=== PATIENT | female | born 1965 | race Caucasian/White ===

== ENCOUNTER → 2018-03-19 14:39 | Outpatient (CLI) | payer OTHER, SELFPAY | PROVIDERS: Referring Provider Internal Medicine Critical Care Medicine; Visit Provider Internal Medicine Critical Care Medicine | DX: J44.9 Chronic obstructive pulmonary disease, unspecified (principal) | CPT/HCPCS: 87070; 87205 ==

== ENCOUNTER → 2018-04-24 13:14 | Outpatient (CLI) | payer OTHER, SELFPAY ==
--- NOTE | 2018-04-24 14:16 | ECHOD_ITS ---
Reason For Study: CAD Procedure This was a 2D Doppler, Color Flow transthoracic echocardiogram. The exam was of adequate technical quality. Exam performed in department. Left Ventricle Normal LV size. Left ventricular systolic function is normal. The estimated ejection fraction is 65 %. The global longitudinal strain = -20 % (normal). No evidence for diastolic dysfunction. No regional wall motion abnormalities noted. Right Ventricle Normal RV size. Normal systolic function. Atria Normal left atrium. Normal right atrium. No doppler evidence for ASD. Mitral Valve There is no mitral annular calcification. Normal mitral valve. Trivial mitral valve insufficiency. Tricuspid Valve Normal tricuspid valve. Mild tricuspid valve insufficiency. Right ventricular systolic pressure estimated to be 23 mmHg. Aortic Valve Trisinus/trileaflet aortic valve. Mild focal aortic valve thickening. Pulmonic Valve The pulmonic valve is not well visualized. Mild (1+) pulmonic valve insufficiency. Great Vessels Normal sized aortic root. Pericardium/Pleural No pericardial effusion. MMode/2D Measurements & Calculations LVIDd: 3.7 cm IVSd: 1.2 cm Ao root diam: 3.6 cm LVIDs: 2.2 cm LVPWd: 1.2 cm FS: 40.8 % LAV(MOD-bp): 32.1 ml LVAd ap4: 26.6 cm2 SV(MOD-sp4): 51.9 ml LAV(MOD-bp) Indexed: 18.2 ml/m2 EDV(MOD-sp4): 73.0 ml LAV(MOD-sp2): 34.1 ml EDV(sp4-el): 76.5 ml LAV(MOD-sp4): 29.8 ml LVAs ap4: 11.7 cm2 ESV(MOD-sp4): 21.1 ml ESV(sp4-el): 19.9 ml EF(MOD-sp4): 71.1 % EF(sp4-el): 74.0 % SV(sp4-el): 56.6 ml LA A4 area: 13.6 cm2 LA dimension(2D): 3.7 cm RA A4 area: 14.0 cm2 Time Measurements MV dec time: 0.37 sec Doppler Measurements & Calculations MV E max drew: 71.5 cm/sec Lat Peak E' Drew: 12.9 cm/sec Med Peak E' Drew: 7.4 cm/sec MV A max drew: 71.2 cm/sec E/E' lat: 5.5 E/E' med: 9.6 MV E/A: 1.0 Ao V2 max: 147.8 cm/sec LV V1 max: 113.9 cm/sec PA V2 max: 111.6 cm/sec Ao max P.7 mmHg LV V1 max P.2 mmHg TR max drew: 221.5 cm/sec TR max P.6 mmHg Interpretation Summary Left ventricular systolic function is normal. The estimated ejection fraction is 65 %. The global longitudinal strain = -20 % (normal). Trivial mitral valve insufficiency. Mild tricuspid valve insufficiency. Mild focal aortic valve thickening. Mild (1+) pulmonic valve insufficiency. Right ventricular systolic pressure estimated to be 23 mmHg. No evidence for diastolic dysfunction. Ordering Physician: Jose M Mcgregor Referring Physician: Sarah Katz Performed By: Sunshine Turcios, RDCS, RVT
--- NOTE | 2018-04-25 15:01 | PFT ---
INTRODUCTION: The patient is a 53-year-old female that presents for pulmonary function testing secondary to a diagnosis of COPD. Respiratory therapy reports good patient effort. Bronchodilators were used during testing. INTERPRETATION: Forced expiration spirometry demonstrates no evidence of a large airways obstructive ventilatory defect. There was no significant response to aerosolized bronchodilators. Spirograms are of good quality and plateau normally. Body plethysmography was performed and reveals lung volumes to be within normal limits. Diffusing capacity by single breath CO is mildly reduced at 67% of predicted. IMPRESSION: These pulmonary function studies demonstrate the presence of an isolated mild reduction in diffusing capacity. There is no evidence of COPD.
== END ==
PROVIDERS: Referring Provider Nurse Practitioner Acute Care; Visit Provider Nurse Practitioner Acute Care
DX: I25.10 Atherosclerotic heart disease of native coronary artery without angina pectoris (principal); J44.9 Chronic obstructive pulmonary disease, unspecified; E78.5 Hyperlipidemia, unspecified
CPT/HCPCS: 93306; 94060; 94726; 94729

== ENCOUNTER → 2018-05-01 14:12 | Outpatient (CLI) | payer OTHER, SELFPAY ==
[2018-05-01 13:14] VITALS: BMI 27.3
[2018-05-01 15:16] LABS: Absolute Lymphocyte Count 2.05 X10^3/ul (0.83-4.51); Absolute Neutrophil Count 5.5 X10^3/uL (2.0-7.7); Basophil# 0.02 X10^3/uL; Basophil% 0.2 % (0-1); Eosinophil# 0.25 X10^3/uL; Hematocrit 38.6 % (37-47); Hemoglobin 12.7 g/dl (12.0-15.0); Lymphocyte # 2.05 X10^3/ul (4.0); Lymphocyte % 24.3 % (19-41); Mean Corp Hgb Conc 32.9 g/gl (32-36); Mean Corpuscular Hgb 31.4 pg (27.0-32.0); Mean Corpuscular Volume 95.5 fL (81-99); Mean Platelet Vol. 9.6 fl (6.2-12.0); Monocyte# 0.64 X10^3/uL; Monocyte% 7.6 % (0-10); Neutrophil # 5.47 X10^3/uL (2.7-7.7); Neutrophil % 64.7 % (47-70); Platelet Count 275 K/mm3 (150-450); RBC Distribution Width CV 12.5 % (11.6-14.6); RBC Distribution Width SD 43.6 fl (35.1-43.9); Red Blood Count 4.04 M/mm3 (4.2-5.4); White Blood Count 8.5 K/mm3 (4.4-11.0)
[2018-05-01 15:41] LABS: POSITIVE COUNT NO; POSITIVE DIFFERENTIAL NO; POSITIVE MORPHOLOGY NO
[2018-05-03 20:07] LABS: Alternaria alternata <0.10 kU/L (Class 0); Bermuda Grass <0.10 kU/L (Class 0); Bluegrass, Kentucky <0.10 kU/L (Class 0); Cat Hair/Dander, Standard <0.10 kU/L (Class 0); D farinae Mite <0.10 kU/L (Class 0); D pteronyssinus <0.10 kU/L (Class 0); Dog Epithelia <0.10 kU/L (Class 0); Elm, American White <0.10 kU/L (Class 0); Oak, White <0.10 kU/L (Class 0); Plantain, English <0.10 kU/L (Class 0); Ragweed, Short/Common <0.10 kU/L (Class 0)
[2018-05-04 12:00] LABS: Mouse Urine <0.10 kU/L (Class 0)
[2018-05-04 20:07] LABS: Aspirgillus flavus Negative (Neg:<1:1); Aspirgillus fumigatus Negative (Neg:<1:1); Aspirgillus niger Negative (Neg:<1:1)
[2018-05-05 09:22] LABS: Immunoglobulin E 2 IU/mL (0-100)
== END ==
PROVIDERS: Referring Provider Nurse Practitioner Acute Care; Visit Provider Nurse Practitioner Acute Care
DX: J45.909 Unspecified asthma, uncomplicated (principal); R05 Cough
CPT/HCPCS: 36415; 82785; 85025; 86003; 86606; 87070; 87205

== ENCOUNTER → 2018-10-16 07:02 | Outpatient (CLI) | payer MEDICAID, SELFPAY ==
[2018-09-26 15:23] VITALS: BMI 27.3
--- NOTE | 2018-10-16 16:51 | STRESSREP ---
Stress Test Report Date: 10-16-18 Procedure: Exercise tolerance test/imaging study Indications: Chest pain; CAD; CABG Consent: Per the patient Procedure: The patient exercised on a Juan protocol for 7 minutes and 45 seconds completing stage II and 1 minute and 45 seconds of stage III achieving a peak heart rate of 146 bpm (86 % predicted maximal heart rate) with a peak blood pressure 136/70 mmHg and a peak MET capacity of 9 METs. The baseline ECG demonstrated normal sinus rhythm; right bundle branch block pattern. The peak exercise ECG demonstrated continued right bundle branch block pattern. There were no cardiac dysrhythmias pretest, during exercise, or recovery. The functional capacity was considered good. There was no complaint of chest discomfort during exercise or recovery. The examination was discontinued secondary to dyspnea. Impression: 1. Technically adequate (percent predicted maximal heart rate greater than 85%) exercise tolerance test 2. Peak exercise ECG with continued right bundle branch block pattern with no obvious ECG changes compared with baseline 3. There were no cardiac dysrhythmias pretest, during exercise, or recovery 4. Nuclear images pending Myocardial perfusion imaging study: Technique: The patient was injected with 11.7 mCi of technetium 99m Cardiolite and subsequently rest SPECT Cardiolite nuclear imaging was obtained in the horizontal long, vertical long, and short axis views. The patient exercised on a Juan protocol for 7 minutes and 45 seconds completing stage II and 1 minute and 45 seconds of stage III achieving a peak heart rate of 146 bpm (86 % predicted maximal heart rate) with a peak blood pressure 136/70 mmHg and a peak MET capacity of 9 METs. The patient was injected with 33.4 mCi of technetium 99m Cardiolite and subsequently stress SPECT Cardiolite nuclear imaging was obtained in the horizontal long, vertical long, and short axis views. A gated Cardiolite study at peak stress was obtained. Interpretation: Rest and stress SPECT Cardiolite nuclear imaging status post realignment, normalization, and attenuation correction, demonstrates the appearance of relative uniform tracer uptake and myocardial perfusion appearing within normal limits. There is end systolic thickening and brightening. The gated Cardiolite study demonstrates myocardial thickening and inward wall motion. The reported LVEF is 69 %. Impression: 1. Rest and stress SPECT Cardiolite nuclear imaging demonstrate relative uniform tracer uptake and myocardial perfusion appearing within normal limits. 2. The gated Cardiolite study reports an LVEF of 69 %. This note was generated with Dragon dictation software. It may contain incorrect words, spelling, and punctuation that were not noted in checking the note before signing.
== END ==
PROVIDERS: Referring Provider Internal Medicine Cardiovascular Disease; Visit Provider Internal Medicine Cardiovascular Disease
DX: R07.9 Chest pain, unspecified (principal); I25.10 Atherosclerotic heart disease of native coronary artery without angina pectoris; Z95.1 Presence of aortocoronary bypass graft
CPT/HCPCS: 78452; 93017; A9500; A4216

== ENCOUNTER 2018-10-29 14:27 | Emergency (ER) | payer MEDICAID, SELFPAY ==
[2018-09-26 15:23] VITALS: BMI 27.3
[2018-10-29 14:29] VITALS: BP 127/89; PULSE 85; RESP 20; TEMP 36.4; O2SAT 97; BMI 26.6
--- NOTE | 2018-10-29 14:55 | EKG12_ITS ---
Test Reason : CP Blood Pressure : / mmHG Vent. Rate : 074 BPM Atrial Rate : 074 BPM P-R Int : 164 ms QRS Dur : 140 ms QT Int : 416 ms P-R-T Axes : 061 -32 061 degrees QTc Int : 461 ms Normal sinus rhythm Left axis deviation Right bundle branch block Inferior infarct , age undetermined , cannot be excluded Abnormal ECG Confirmed by CHYNA ENCISO, LEILA ([id number]), editor continuity and script GET FERRER ([id number]) on 10/31/2018 9:16:37 AM Referred By: HARPER Confirmed By:LEILA CLEMENTE MD
--- NOTE | 2018-10-29 14:55 | RAD_ITS ---
STUDY: X-RAY CHEST REASON FOR EXAM: Female, 53 years old. Cough, CP, SOB x 10 days TECHNIQUE: Frontal and lateral views of the chest. COMPARISON: None. FINDINGS: The lungs are clear and expanded. There is no demonstrated pleural abnormality. Sternal cerclage wires and vascular clips are present from a prior sternotomy and coronary artery bypass graft procedure (CABG). Normal heart size. Normal mediastinum and mario. Normal visualized pulmonary arteries. Normal visualized aortic arch and descending thoracic aorta. Normal visualized thoracic spine. Normal visualized ribs, clavicles, and shoulders. There is no demonstrated abnormality of the visualized soft tissue structures of the upper abdomen. RAD/Chest PA and Lateral IMPRESSION: No acute chest disease. Electronically Signed: Rogelio Kendrick MD at 16:20 EDT , Service support ,
[2018-10-29 15:12] VITALS: PULSE 89; RESP 22
[2018-10-29] MEDS: Ipratropium/Albuterol Sulfate 3 ML AMPUL.NEB INHALATION (15:12)
[2018-10-29] MEDS: Acetylcysteine 800 MG/4 ML VIAL.NEB. INHALATION (15:12)
[2018-10-29 15:24] VITALS: BP 120/67; PULSE 82; PULSE 85; RESP 12; RESP 15; TEMP 36.4; O2SAT 97
[2018-10-29 15:25] VITALS: O2SAT 98
[2018-10-29] MEDS: 0.9% Normal Saline 1,000 ML 999 ML IV (15:32)
[2018-10-29] MEDS: Ondansetron 4 MG/2 ML Vial IV (15:33)
[2018-10-29] MEDS: DiphenhydrAMINE 50 MG/ML Syringe 25 MG IV (15:33)
[2018-10-29] MEDS: MethylPREDNISolone 125 MG/2 ML Vial IV (15:33)
[2018-10-29] MEDS: Benzonatate 100 MG Capsule 200 MG PO (15:33)
[2018-10-29] MEDS: Morphine 4 MG/ML Syringe IV (15:33)
--- NOTE | 2018-10-29 15:33 | ED.DCSUM_ITS ---
- ER Visit Summary Date of Service: 10/29/18 Chief Complaint: Cough History of Present Illness: The patient is a [address] Flores, Dr. Ceja, and Dr. Mcgregor. She reports that she has a cough began 4 weeks ago. Is productive of yellow sputum with streaks of blood. She is currently on day 7 out of 10 of Zithromax. She is on her last aid of prednisone which she is taken for 6 days. She reports that she is getting worse rather than better. She states that she has severe shortness of breath at worst and moderate currently. Is minimally relieved with her albuterol. Patient denies fever. She has had chills. She reports that she has a sore throat and diffuse myalgias from coughing. She reports that she has chest pain in the wall of my chest that increases with coughing. This is been present all day today. It is 6 out of 10 in severity. She reports that she has been nauseated had multiple episodes of posttussive emesis productive of phlegm without blood. She had 3 episodes of diarrhea today. No blood in her stools or black tarry stools. She reports that she has a headache that is 10 out of 10 severity that is much worse when she coughs. She has had similar headaches previously. Physical Examination: Vitals: Stable. Afebrile. General: Well-nourished and well-developed. Head: Normocephalic atraumatic. HEENT: Pharyngeal erythema. No tonsillar exudate or enlargement. No cervical lymphadenopathy. Neck: Supple, no lymphadenopathy. No JVD. Nontender. Cardiovascular: Regular rate and rhythm. No murmurs. Respiratory: No respiratory distress. Moderate inspiratory and expiratory wheezes bilaterally with mildly decreased air movement. Abdominal: Soft, nontender, nondistended, normal bowel sounds. No guarding, rebound, or peritoneal signs. Back: Nontender. Extremities: Nontender, no edema. Skin: Normal color, no rash. Neurologic: Alert and oriented ?3. Cranial nerves II through XII are intact. Normal strength and sensation. Psych: Normal affect. Test Results: EKG is sinus at 74 with a right bundle branch block. This is unchanged from last month. Chest x-ray shows chronic changes. CBC is remarkable for a white count of 16.3. However, she is just finishing steroids. Chem-7 shows a potassium 3.2 and chloride of 34. Troponin is negative. Emergency Department Course and Treatment: Patient was given albuterol and Atrovent aerosols. She is given a dose of Solu-Medrol, Benadryl, morphine, and Zofran IV. She is resting more comfortably. Pulse ox with ambulation is 92%. Treatment Plan: Patient will be discharged on a prednisone taper, doxycycline, Tessalon Perles, and given a prescription for Atrovent for her nebulizer. Instructed to follow-up with Dr. Flores in 3 to 5 days for another exam. Return to the emergency department for any worsening symptoms. Disposition: To home in improved and stable condition. Impression: 1. COPD exacerbation. This note was generated with [employer] dictation software. It may contain incorrect words, spelling, and punctuation that were not noted in review of the chart prior to signing ED Disposition - Plan for ED Patient: Instructions: ED COPD Flare Prescriptions: Oxycodone HCl/Acetaminophen [Percocet 5/325] 1 tab PO Q6H PRN PRN 3 Days #12 tab PRN Reason: Pain Benzonatate [Tessalon Perle] 200 mg PO TID PRN PRN #20 capsule PRN Reason: Cough Prednisone 10 mg PO DAILY #63 tablet Doxycycline 100 mg PO BID #20 capsule Ipratropium [Atrovent] 0.5 mg INHALATION TID #1 box Referrals: Juan Flores MD [STAFF PHYSICIAN] - 3-5 Days
[2018-10-29 15:50] LABS: Absolute Lymphocyte Count 4.44 X10^3/ul (0.83-4.51); Absolute Neutrophil Count 10.1 X10^3/uL (2.0-7.7); Basophil# 0.03 X10^3/uL; Basophil% 0.2 % (0-1); Differential Indicated SCAN CRITERIA MET; Eosinophil# 0.16 X10^3/uL; Hematocrit 37.6 % (37-47); Hemoglobin 12.3 g/dl (12.0-15.0); Lymphocyte # 4.44 X10^3/ul (4.0); Lymphocyte % 27.3 % (19-41); Mean Corp Hgb Conc 32.7 g/gl (32-36); Mean Corpuscular Hgb 31.8 pg (27.0-32.0); Mean Corpuscular Volume 97.2 fL (81-99); Mean Platelet Vol. 9.4 fl (6.2-12.0); Monocyte# 1.46 X10^3/uL; Neutrophil # 10.05 X10^3/uL (2.7-7.7); Neutrophil % 61.6 % (47-70); POSITIVE COUNT NO; POSITIVE DIFFERENTIAL NO; POSITIVE MORPHOLOGY YES; Platelet Count 338 K/mm3 (150-450); RBC Distribution Width CV 12.4 % (11.6-14.6); Red Blood Count 3.87 M/mm3 (4.2-5.4); White Blood Count 16.3 K/mm3 (4.4-11.0)
[2018-10-29 16:07] LABS: BUN 8 mg/dL (7-18); Creatinine, Serum 0.55 mg/dL (0.55-1.02); EST Glomerular Filtration Rate 125 mL/min (>60); Estimated Creatinine Clearance 108.89 ml/min; Glucose 84 mg/dL (74-106)
[2018-10-29 16:08] LABS: Anion Gap 5 (5-15); BUN/Creat Ratio 14.7 RATIO (10-20); Calcium,Total 8.7 mg/dL (8.5-10.1); Chloride 101 mmol/L (98-107); Est Glom Filt Rate - Afr Amer 151 mL/min (>60); Potassium 3.2 mmol/L (3.5-5.1); Sodium Level 140 mmol/L (136-145)
[2018-10-29 16:13] LABS: Differential Comment SCANNED
[2018-10-29 16:56] VITALS: BP 170/76; PULSE 89; RESP 18; TEMP 36.6; O2SAT 88; O2SAT 92
[2018-10-29] MEDS: Doxycycline 100 MG CAPSULE PO (16:57)
[2018-10-29 17:19] VITALS: BP 168/81; PULSE 84; RESP 18; TEMP 36.6; O2SAT 99
== END 2018-10-29 17:23 | disposition home or self-care (01) ==
LOC: ED 15:44
PROVIDERS: Emergency Provider Emergency Medicine
DX: J44.1 Chronic obstructive pulmonary disease with (acute) exacerbation (principal); R19.7 Diarrhea, unspecified; R11.2 Nausea with vomiting, unspecified; J02.9 Acute pharyngitis, unspecified; M79.10 Myalgia, unspecified site; R51 Headache; I25.10 Atherosclerotic heart disease of native coronary artery without angina pectoris; I10 Essential (primary) hypertension; I45.10 Unspecified right bundle-branch block; Z72.0 Tobacco use; Z79.02 Long term (current) use of antithrombotics/antiplatelets; Z79.82 Long term (current) use of aspirin; Z79.899 Other long term (current) drug therapy; Z95.1 Presence of aortocoronary bypass graft
CPT/HCPCS: 71046; 80048; 84484; 85025; 93005; 94640; 96361; 96374; 96375; 99285; J2405

== ENCOUNTER 2018-11-19 19:34 | Emergency (ER) | payer MEDICAID, SELFPAY ==
[2018-11-15 14:18] VITALS: BMI 26.6
[2018-11-19 19:35] VITALS: BP 124/82; PULSE 83; RESP 16; TEMP 36.7; O2SAT 96; BMI 26.6
--- NOTE | 2018-11-19 20:06 | CT_ITS ---
STUDY: CT CHEST WITHOUT CONTRAST REASON FOR EXAM: Female, 53 years old. Cough RADIATION DOSAGE (If Supplied By Facility): CTDIvol = ( 11.81 ) mGy, DLP = ( 445.52 ) mGycm TECHNIQUE: Transaxial imaging was performed without the administration of intravenous contrast material. Individualized dose optimization techniques were used for this CT. COMPARISON: None. FINDINGS: There are minimal emphysematous changes of the lung apices. There is no demonstrated pleural abnormality. The heart size is normal. There is no pericardial effusion. No pathologically enlarged mediastinal nodes are evident. Hilar areas are difficult to assess on this noncontrast study. There is no obvious hilar mass or adenopathy. Normal unenhanced pulmonary arteries. There are calcified plaques of the thoracic aorta. There is no evidence of thoracic aortic aneurysm. Status post sternotomy changes are evident. There is a nonobstructing 2 mm calculus of the left kidney. CT/Chest without Contrast IMPRESSION: Minimal emphysematous changes of the lung apices. There is no evidence of infiltrate or atelectasis. Status post sternotomy. Nonobstructing 2 mm calculus of the left kidney. Electronically Signed: Afshin Sánchez MD at 21:04 EDT , Service support ,
[2018-11-19 20:14] VITALS: PULSE 75; RESP 16
[2018-11-19] MEDS: Albuterol 2.5 MG/3 ML VIAL.NEB. INHALATION (20:14)
[2018-11-19] MEDS: Ipratropium/Albuterol Sulfate 3 ML AMPUL.NEB INHALATION (20:14)
[2018-11-19] MEDS: Ketorolac 15 MG/ML Vial IV (20:31)
[2018-11-19] MEDS: LORazepam 0.5 MG Tablet PO (20:31)
[2018-11-19 20:33] VITALS: O2SAT 95
[2018-11-19 20:40] LABS: Absolute Neutrophil Count 6.9 X10^3/uL (2.0-7.7); Basophil# 0.02 X10^3/uL; Basophil% 0.2 % (0-1); Eosinophil# 0.07 X10^3/uL; Eosinophils% 0.8 % (0-5); Hematocrit 37.5 % (37-47); Hemoglobin 12.3 g/dl (12.0-15.0); Lymphocyte % 18.6 % (19-41); Mean Corp Hgb Conc 32.8 g/gl (32-36); Mean Corpuscular Hgb 31.8 pg (27.0-32.0); Mean Corpuscular Volume 96.9 fL (81-99); Mean Platelet Vol. 9.1 fl (6.2-12.0); Monocyte# 0.46 X10^3/uL; Neutrophil # 6.88 X10^3/uL (2.7-7.7); Neutrophil % 75.1 % (47-70); Platelet Count 282 K/mm3 (150-450); RBC Distribution Width CV 13.4 % (11.6-14.6); RBC Distribution Width SD 47.6 fl (35.1-43.9); Red Blood Count 3.87 M/mm3 (4.2-5.4); White Blood Count 9.2 K/mm3 (4.4-11.0)
[2018-11-19 20:46] LABS: POSITIVE COUNT NO; POSITIVE DIFFERENTIAL NO; POSITIVE MORPHOLOGY NO
[2018-11-19 20:53] LABS: Anion Gap 7 (5-15); BUN 8 mg/dL (7-18); Chloride 103 mmol/L (98-107); Creatinine, Serum 0.54 mg/dL (0.55-1.02); EST Glomerular Filtration Rate 128 mL/min (>60); Est Glom Filt Rate - Afr Amer 154 mL/min (>60); Estimated Creatinine Clearance 110.91 ml/min; Glucose 112 mg/dL (74-106); Sodium Level 140 mmol/L (136-145)
--- NOTE | 2018-11-19 22:17 | ED.DCSUM_ITS ---
History of Present Illness Chief Complaint: Cough Informant: Patient Narrative: Patient presenting for evaluation secondary to a respiratory infection. Patient reports that over the course the last 6 weeks she has been dealing with productive cough. Patient has been on a course of azithromycin, calityromycin, doxycycline, as well as a course of prednisone. She reports that she has not been having any improvement. 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 Patient states that she has been having generalized malaise associated with this throughout this time. Review of systems otherwise negative. Past Medical History - Allergies and Home Meds Allergies/Adverse Reactions: Allergies acetaminophen [From Vicodin] Allergy (Unknown, Verified 11/15/18 14:09) Unknown erythromycin base Allergy (Unknown, Verified 11/15/18 14:09) Unknown hydrocodone [From Vicodin] Allergy (Unknown, Verified 11/19/18 21:08) Unknown nausea hydromorphone [From Dilaudid] Adverse Reaction (Verified 11/19/18 21:08) Itching morphine Adverse Reaction (Verified 11/19/18 21:08) Itching oxycodone [From Percocet] Adverse Reaction (Verified 11/19/18 21:08) Itching Primary Care Physician: Marco Ugarte DO [STAFF PHYSICIAN] - 1-2 Weeks Smoking Status: Current every day smoker Review of Systems All systems negative except as indicated General: Reports: Malaise Respiratory: Reports: Dyspnea, Cough, Sputum Physical Exam Vital Signs/Narrative: Vital Signs Temp Pulse Resp BP Pulse Ox 11/19/18 20:14 75 16 11/19/18 19:35 98.1 F 83 16 124/82 H 96 Inital Vital Signs reviewed: Yes General: Well nourished, Well developed, No Acute Distress Head: Normocephalic, Atraumatic Eyes: Perrl, EOMI ENT: Moist mucous membranes, No rhinorrhea Neck: Supple, Nontender Cardiovascular: Regular rate, Regular rhythm, No murmurs Respiratory: No distress, Wheezing Abdomen: Soft, Nontender, Nondistended, Normal bowel sounds Back: Nontender, Normal Inspection Extremities: Nontender, No edema Skin: Normal color, No rash Neurological: Alert, Oriented x3, Cranial nerves II-XII grossly intact, Normal Strength, Normal Sensation Psychological: Normal affect, Normal Mood Diagnostic/Tx/Re-eval - Medical Decision Making Patient presented secondary to a persistent respiratory infection. Patient was reporting that pulmonary was requesting that she receive a work-up, CT, and admission. CT of the chest was obtained which shows no focal infiltrates. CBC and chemistry were found to be unremarkable. Patient was given breathing treatments in the emergency department. I had a discussion with the patient's pickling grader Dr. Ugarte on the telephone, and he states that he did not inform the patient that she requires admission. He recommended starting patient on a course of Augmentin. Patient was given a dose that in the emergency department and will be discharged with a course of the same. Disposition: Home ED Disposition - Plan for ED Patient: Disposition: Home or Assisted Living Diagnosis: Bronchitis Instructions: ED Bronchitis Asthmatic Prescriptions: Amox/Clavulanate Tablet [Augmentin Tablet] 875 mg PO Q12H #28 tab Referrals: Marco Ugarte DO [STAFF PHYSICIAN] - 1-2 Weeks
[2018-11-19] MEDS: Acetaminophen 500 MG Tablet 1000 MG PO (22:29)
[2018-11-19] MEDS: Amox/Clavulanate 875 MG Tablet PO (22:29)
[2018-11-19] MEDS: traMADol 50 MG Tablet PO (22:29)
[2018-11-19 22:34] VITALS: BP 118/95; PULSE 87; RESP 16; TEMP 36.8; O2SAT 97
--- NOTE | 2018-11-20 22:07 | ED.RN ---
PT CALLED IN AND STATES SHE IS FRUSTRATED AND UPSET WITH HER MOST RECENT VISIT TO THE EMERGENCY ROOM. SHE STATES SHE WANTS ALL ALLERGIES TAKEN OFF HER CHART BECAUSE SHE JUST REALIZED ON HER DISCHARGE PAPERWORK WHAT WAS LISTED. SHE STATES SHE WILL BE IN CHARGE OF ASKING FOR BENADRYL, THAT HER ITCHING WITH MEDICATION IS NOT AN ALLERGY AND PREVENTING PROVIDERS FROM GIVING HER PAIN MEDICATION. PATIENT WAS NOTIFIED THAT ALLERGIES WERE PUT IN APPROPRIATELY, THAT THEY WERE LISTED ADVERSE REACTIONS WITH THE REACTION BEING 'ITCHING'. SHE INSISTED THAT THEY BE REMOVED COMPLETELY FROM HER CHART WHICH WAS COMPLETED BY THIS RN. PT ENCOURAGED TO FOLLOW UP WITH DR. BONNER PT ALSO STATES SHE IS STOPPING HER ORAL ABX DUE TO VOMITING.
== END 2018-11-19 23:09 | disposition home or self-care (01) ==
PROVIDERS: Emergency Provider Emergency Medicine; PCP Family Medicine
DX: J40 Bronchitis, not specified as acute or chronic (principal); F17.200 Nicotine dependence, unspecified, uncomplicated; Z88.5 Allergy status to narcotic agent; Z88.1 Allergy status to other antibiotic agents
CPT/HCPCS: 71250; 80048; 85025; 94640; 96374; 99284; A4216

== ENCOUNTER → 2018-12-14 15:14 | Outpatient (CLI) | payer MEDICAID, SELFPAY ==
[2018-11-19 19:35] VITALS: BMI 26.6
[2018-12-14] MEDS: cefTRIAXone 2 GM Vial IM (15:41)
[2018-12-14 15:45] VITALS: BP 120/85; PULSE 85; RESP 16; TEMP 36.6; O2SAT 100; BMI 25.7
== END ==
PROVIDERS: PCP Family Medicine; Referring Provider Internal Medicine Infectious Disease; Visit Provider Internal Medicine Infectious Disease
DX: J44.0 Chronic obstructive pulmonary disease with (acute) lower respiratory infection (principal); J18.9 Pneumonia, unspecified organism; J44.1 Chronic obstructive pulmonary disease with (acute) exacerbation
CPT/HCPCS: 87070; 87106; 87186; 87205; 96372; J0696

== ENCOUNTER → 2018-12-14 15:47 | Outpatient (CLI) | payer MEDICAID, SELFPAY ==
[2018-11-19 19:35] VITALS: BMI 26.6
== END ==
PROVIDERS: Family Provider Family Medicine; PCP Family Medicine; Referring Provider Internal Medicine Infectious Disease; Visit Provider Internal Medicine Infectious Disease
DX: J44.1 Chronic obstructive pulmonary disease with (acute) exacerbation (principal)
CPT/HCPCS: 87070; 87106; 87186; 87205

== ENCOUNTER 2018-12-15 16:32 | Outpatient (CLI) | payer MEDICAID, SELFPAY ==
[2018-12-14 15:45] VITALS: BMI 25.7
[2018-12-15 16:42] VITALS: BP 138/83; PULSE 84; RESP 18; TEMP 36.2; O2SAT 98; BMI 25.7
[2018-12-15] MEDS: cefTRIAXone 2 GM Vial IM (16:50)
== END 2018-12-15 16:51 | disposition home or self-care (01) ==
LOC: MEDOUTP 16:43 → ED 16:48
PROVIDERS: PCP Family Medicine; Visit Provider Internal Medicine Infectious Disease
DX: J18.9 Pneumonia, unspecified organism (principal)
CPT/HCPCS: 96372; J0696

== ENCOUNTER → 2018-12-16 16:00 | Outpatient (CLI) | payer MEDICAID, SELFPAY ==
[2018-12-14 15:45] VITALS: BMI 25.7
[2018-12-15 16:42] VITALS: BMI 25.7
[2018-12-16 16:58] VITALS: BP 133/98; PULSE 86; RESP 18; TEMP 36.9; O2SAT 98; BMI 25.7
[2018-12-16] MEDS: cefTRIAXone 2 GM Vial IM (17:05)
== END ==
PROVIDERS: PCP Family Medicine; Visit Provider Internal Medicine Infectious Disease
DX: J18.9 Pneumonia, unspecified organism (principal)
CPT/HCPCS: J0696

== ENCOUNTER → 2018-12-18 15:37 | Outpatient (CLI) | payer MEDICAID, SELFPAY ==
[2018-12-14 15:45] VITALS: BMI 25.7
[2018-12-16 16:58] VITALS: BMI 25.7
[2018-12-18] MEDS: cefTRIAXone 2 GM Vial 1 GM IM (15:52)
[2018-12-18 15:56] VITALS: BP 100/72; PULSE 83; RESP 16; TEMP 37.3; O2SAT 98; BMI 25.0
== END ==
PROVIDERS: PCP Family Medicine; Referring Provider Internal Medicine Infectious Disease; Visit Provider Internal Medicine Infectious Disease
DX: J44.0 Chronic obstructive pulmonary disease with (acute) lower respiratory infection (principal); J18.9 Pneumonia, unspecified organism; J44.1 Chronic obstructive pulmonary disease with (acute) exacerbation
CPT/HCPCS: 96372; J0696

== ENCOUNTER → 2018-12-19 11:55 | Outpatient (CLI) | payer MEDICAID, SELFPAY ==
[2018-12-14 15:45] VITALS: BMI 25.7
[2018-12-18 15:56] VITALS: BMI 25.0
[2018-12-19 12:02] VITALS: BP 110/75; PULSE 75; RESP 18; TEMP 36.4; O2SAT 97; BMI 25.0
[2018-12-19] MEDS: Ceftriaxone 1 GM Vial IM (12:33)
== END ==
PROVIDERS: PCP Family Medicine; Referring Provider Internal Medicine Infectious Disease; Visit Provider Internal Medicine Infectious Disease
DX: J18.9 Pneumonia, unspecified organism (principal)
CPT/HCPCS: 96372

== ENCOUNTER → 2018-12-20 15:43 | Outpatient (CLI) | payer MEDICAID, SELFPAY ==
[2018-12-14 15:45] VITALS: BMI 25.7
[2018-12-19 12:02] VITALS: BMI 25.0
[2018-12-20 16:15] VITALS: BP 112/74; PULSE 84; RESP 16; TEMP 36.3; O2SAT 97; BMI 25.7
[2018-12-20] MEDS: Ceftriaxone 1 GM Vial IM (16:21)
== END ==
PROVIDERS: PCP Family Medicine; Referring Provider Internal Medicine Infectious Disease; Visit Provider Internal Medicine Infectious Disease
DX: J18.9 Pneumonia, unspecified organism (principal)
CPT/HCPCS: 96372

== ENCOUNTER 2019-02-10 21:54 | Emergency (ER) | payer MEDICAID, SELFPAY ==
[2018-12-20 16:15] VITALS: BMI 25.7
[2019-02-10 21:54] VITALS: BP 137/102; PULSE 88; RESP 18; TEMP 36.8; O2SAT 98; BMI 26.4
--- NOTE | 2019-02-10 22:18 | CT_ITS ---
STUDY: CT ABDOMEN AND PELVIS WITH CONTRAST REASON FOR EXAM: Female, 53 years old. Stomach and flank pain. RADIATION DOSAGE (If Supplied By Facility): CTDIvol = ( 14.17 ) mGy, DLP = ( 743.82 ) mGycm TECHNIQUE: Transaxial images were obtained from the dome of the diaphragm to the symphysis pubis with oral contrast. 100 IV/Oral Isovue 300 was administered. Sagittal and coronal images were reconstructed. Individualized dose optimization techniques were used for this CT. COMPARISON: CT chest November 19, 2018. FINDINGS: No focal infiltrates or effusions. The visualized portions of the heart are within normal limits. Sternal wires are present. Normal liver. There is borderline gallbladder wall thickening. Normal spleen. Normal pancreas. Normal bilateral adrenal glands. Normal right kidney. 2.6 cm cyst inferior pole left kidney. 2 mm nonobstructing mid pole left renal calculus. 5 mm left renal vascular calcification. Normal visualized stomach. Mildly prominent contrast-filled loops of small bowel left midabdomen with appearance probably related to peristalsis and not obstruction. Normal colon. There is non-visualization of the appendix. There is diffuse atherosclerotic calcification of the abdominal aorta, without a demonstrated aneurysm. Normal inferior vena cava. Normal retroperitoneum. No intra-abdominal free air. Normal urinary bladder. Uterus grossly normal. No adnexal mass is seen. There is a small right-sided inguinal hernia containing adipose tissue. L5-S1 mild disc space narrowing. CT/Abdomen/Pelvis WITH Contrast IMPRESSION: Borderline gallbladder wall thickening. If the patient has symptoms referable to the right upper quadrant correlate with abdominal ultrasound. Small nonobstructing left renal calculus. Left renal cyst. Small right inguinal hernia containing fat. Electronically Signed: Brady Harper MD at 0:39 EDT , Service support ,
--- NOTE | 2019-02-10 22:21 | ED.DCSUM_ITS ---
- ER Visit Summary Date of Service: 02/10/19 Chief Complaint: Abdominal pain History of Present Illness: The patient is a 53 F who presents with abdominal pain that is been getting worse over the past 3 days. Patient states the pain is over the epigastric area and radiates into her back. Patient states her pain is worse with breathing. Patient states nothing makes it better. Patient admits to some nausea vomiting. Patient denies any hematemesis or coffee-ground emesis. Patient denies any diarrhea, melena, or hematochezia. Patient denies any dysuria or hematuria. Patient does admit to headache. Patient admits to subjective chills. Physical Examination: Vital signs are stable except for slightly elevated blood pressure of 132/102. Patient is afebrile. Patient is in no acute distress. Oral mucosa is pink and moist. Neck is supple. Trachea is midline. There is no JVD noted. Heart was regular rate and rhythm. Lungs are clear and equal bilaterally. Abdomen is soft. Bowel sounds are normal. There is epigastric tenderness. There is no rebound or guarding noted. Cranial nerves II through XII are intact. There are no focal motor or sensory deficits noted. Test Results: CBC, comprehensive metabolic profile, and urinalysis were obtained and were all normal. ET scan of the abdomen and pelvis was obtained. There is borderline gallbladder wall thickening. There is a small right inguinal hernia containing fat. There are no other acute findings. Emergency Department Course and Treatment: Patient was given a dose of morphine and Zofran here. Patient states she developed itching after the morphine. Patient was given a dose of Benadryl. Patient was advised of her lab and CT findings. Patient was instructed to follow-up with her primary care physician in 3 to 5 days. Patient was given a prescription for a short course of Slater for pain. Patient was instructed to return if worse in any way. Patient understood and was agreeable with the plan. All questions were answered. Disposition: Discharge home Impression: Abdominal pain This note was generated with [employer] dictation software. It may contain incorrect words, spelling, and punctuation that were not noted in review of the chart prior to signing ED Disposition - Plan for ED Patient: Disposition: Home or Assisted Living Diagnosis: Abdominal pain, acute, epigastric Instructions: ABDOMINAL PAIN, Unknown Cause, (Female) Prescriptions: Hydrocodone Bitart/Apap 5-325 [Slater 5MG-325MG] 1 tab PO Q6H PRN PRN 3 Days #10 tab PRN Reason: Pain Prescription Printed Referrals: Charlotte,SonMD [Primary Care Provider] - 3-5 Days
[2019-02-10] MEDS: Ondansetron 4 MG/2 ML Vial IV (22:25)
[2019-02-10] MEDS: Morphine 4 MG/ML Syringe IV (22:25)
[2019-02-10] MEDS: 0.9% Normal Saline 1,000 ML 1000 ML IV (22:25)
[2019-02-10 22:31] LABS: Absolute Lymphocyte Count 3.25 X10^3/uL (0.83-4.51); Absolute Neutrophil Count 4.8 X10^3/uL (2.0-7.7); Basophil# 0.07 X10^3/uL; Basophil% 0.7 % (0-1); Eosinophil# 0.38 X10^3/uL; Hematocrit 33.7 % (37-47); Hemoglobin 11.2 g/dL (12.0-15.0); Lymphocyte # 3.25 X10^3/ul (4.0); Lymphocyte % 34.2 % (19-41); Mean Corp Hgb Conc 33.2 g/dL (32-36); Mean Corpuscular Hgb 31.9 pg (27.0-32.0); Mean Platelet Vol. 9.8 fl (6.2-12.0); Monocyte# 0.97 X10^3/uL; Monocyte% 10.2 % (0-10); NRBC Flagged by Analyzer 0 % (0-5); Neutrophil % 50.6 % (47-70); POSITIVE MORPHOLOGY YES; Platelet Count 244 K/mm3 (150-450); RBC Distribution Width CV 12.1 % (11.6-14.6); RBC Distribution Width SD 42.3 fl (35.1-43.9); Red Blood Count 3.51 M/mm3 (4.2-5.4); White Blood Count 9.5 K/mm3 (4.4-11.0)
[2019-02-10 22:42] LABS: Bacteria 0 SEEN /hpf (None Seen); Mucous, Urine 0 SEEN /hpf (<or=2+); White Blood Cells 0 SEEN /hpf (0-5)
[2019-02-10] MEDS: DiphenhydrAMINE 50 MG/ML Syringe 25 MG IV (22:43)
[2019-02-10 22:44] LABS: Differential Indicated SCAN CRITERIA MET
[2019-02-10 22:45] LABS: AST(SGOT) 10 U/L (15-37); Alanine Aminotransfer ALT/SGPT 14 U/L (13-56); Albumin, Serum 3.5 g/dL (3.2-5.0); Alkaline Phosphatase 76 U/L (45-117); Anion Gap 5 (5-15); BUN 11 mg/dL (7-18); BUN/Creat Ratio 16.1 RATIO (10-20); Calcium,Total 8.7 mg/dL (8.5-10.1); Chloride 107 mmol/L (98-107); Creatinine, Serum 0.68 mg/dL (0.55-1.02); EST Glomerular Filtration Rate 96 mL/min (>60); Est Glom Filt Rate - Afr Amer 116 mL/min (>60); Estimated Creatinine Clearance 88.07 ml/min; Globulin 3.6 g/dL (2.2-4.2); Glucose 103 mg/dL (74-106); Lipase 87 U/L (73-393); Potassium 3.8 mmol/L (3.5-5.1); Protein, Total 7.1 g/dL (6.4-8.2); Sodium Level 141 mmol/L (136-145)
[2019-02-10 22:48] LABS: Color, Urine Yellow (Yellow); Glucose, Dipstick Normal (Normal); Ketone-Dipstick Negative (Negative); Leukocyte Esterase-Dipstick 25 /ul (Negative); Nitrite-Dipstick Negative (Negative); Occult Blood-Urine 25 /ul (Negative); Protein-Dipstick 15 mg/dl (Negative); Urine Bilirubin Dipstick Negative (Negative); Urine Clarity Clear (Clear); Urine Urobilinogen Normal (Normal)
[2019-02-10 22:55] LABS: Red Blood Cells-Urine 0-5 SEEN /hpf (0-5); Squamous Epithelial Cells - UA 0-5 SEEN /hpf (5-10)
[2019-02-10 23:01] LABS: Differential Comment SCANNED
[2019-02-10 23:06] LABS: Reactive Lymphocyte RARE
[2019-02-11 01:13] VITALS: RESP 18
[2019-02-11 13:27] LABS: Pathologist Review Reviewed
== END 2019-02-11 01:14 | disposition home or self-care (01) ==
PROVIDERS: Emergency Provider Emergency Medicine; Family Provider Family Medicine; PCP Family Medicine
DX: R10.13 Epigastric pain (principal); R11.2 Nausea with vomiting, unspecified; I25.10 Atherosclerotic heart disease of native coronary artery without angina pectoris; I10 Essential (primary) hypertension; L40.50 Arthropathic psoriasis, unspecified; I25.2 Old myocardial infarction; Z72.0 Tobacco use; Z79.02 Long term (current) use of antithrombotics/antiplatelets; Z79.82 Long term (current) use of aspirin; Z79.899 Other long term (current) drug therapy; Z86.711 Personal history of pulmonary embolism; Z95.1 Presence of aortocoronary bypass graft
CPT/HCPCS: 74177; 80053; 81001; 83690; 85025; 96361; 96374; 96375; 99284; J7030; Q9967; A4216; J2405

== ENCOUNTER → 2019-05-07 15:45 | Outpatient (CLI) | payer MEDICAID, SELFPAY ==
[2018-12-14 15:45] VITALS: BMI 25.7
== END ==
PROVIDERS: PCP Family Medicine; Referring Provider Internal Medicine Infectious Disease; Visit Provider Internal Medicine Infectious Disease
DX: J44.9 Chronic obstructive pulmonary disease, unspecified (principal)
CPT/HCPCS: 87070; 87205; J0696

== ENCOUNTER 2019-06-25 01:51 | Observation (INO) | payer MEDICAID, SELFPAY ==
[2019-06-25] VITALS (11 sets, daily range): BP systolic 114–157; BP diastolic 79–99; PULSE 71–91; RESP 12–20; TEMP 36.5–36.9; O2SAT 94–100; BMI 24.5; BMI 24.1
--- NOTE | 2019-06-25 02:09 | EKG12_ITS ---
Test Reason : CP Blood Pressure : / mmHG Vent. Rate : 089 BPM Atrial Rate : 089 BPM P-R Int : 170 ms QRS Dur : 142 ms QT Int : 410 ms P-R-T Axes : 061 -46 058 degrees QTc Int : 498 ms Normal sinus rhythm Right bundle branch block Left anterior fascicular block Bifascicular block Inferior infarct , age undetermined Abnormal ECG Confirmed by MECHELLE CEDENO ([id number]), desk editor JONATHAN MARTINEZ ([id number]) on 06/27/2019 12:55:28 PM Referred By: NAKUL Confirmed By:MECHELLE CEDENO
--- NOTE | 2019-06-25 02:09 | RAD_ITS ---
STUDY: X-RAY CHEST REASON FOR EXAM: Female, 54 years old. PT C/O CHEST PAIN, EPIGASTRIC PAIN, BACK PAIN, RIGHT ARM PAIN, HEADACHE TECHNIQUE: Chest pain. COMPARISON: 10/29/2018. FINDINGS: The lungs are clear and expanded. There is no demonstrated pleural abnormality. Midline sternotomy wires noted. Otherwise normal size heart. Normal mediastinum and mario. Normal visualized pulmonary arteries. Normal visualized aortic arch and descending thoracic aorta. Normal visualized thoracic spine. Normal visualized ribs, clavicles, and shoulders. There is no demonstrated abnormality of the visualized soft tissue structures of the upper abdomen. RAD/Chest 1 View (Portable) IMPRESSION: No acute cardiopulmonary disease. Electronically Signed: Susan Marie MD at 3:27 EST , Service support ,
[2019-06-25 02:17] LABS: Absolute Lymphocyte Count 4.52 X10^3/uL (0.83-4.51); Absolute Neutrophil Count 4.7 X10^3/uL (2.0-7.7); Basophil# 0.07 X10^3/uL; Basophil% 0.7 % (0-1); Eosinophil# 0.46 X10^3/uL; Eosinophils% 4.3 % (0-5); Hematocrit 37.2 % (37-47); Hemoglobin 12.4 g/dL (12.0-15.0); Lymphocyte # 4.52 X10^3/ul (4.0); Lymphocyte % 42.3 % (19-41); Mean Corp Hgb Conc 33.3 g/dL (32-36); Mean Corpuscular Hgb 31.7 pg (27.0-32.0); Mean Corpuscular Volume 95.1 fL (81-99); Mean Platelet Vol. 9.8 fl (6.2-12.0); Monocyte# 0.94 X10^3/uL; Monocyte% 8.8 % (0-10); NRBC Flagged by Analyzer 0 % (0-5); Neutrophil # 4.66 X10^3/uL (2.7-7.7); Neutrophil % 43.6 % (47-70); Platelet Count 248 K/mm3 (150-450); RBC Distribution Width SD 42.2 fl (35.1-43.9); Red Blood Count 3.91 M/mm3 (4.2-5.4); White Blood Count 10.7 K/mm3 (4.4-11.0)
[2019-06-25] MEDS: Aspirin 81 MG TAB.CHEW 324 MG PO (02:17)
[2019-06-25 02:28] LABS: Anion Gap 6 (5-15); BUN 7 mg/dL (7-18); BUN/Creat Ratio 11.3 RATIO (10-20); Calcium,Total 9.2 mg/dL (8.5-10.1); Chloride 106 mmol/L (98-107); Creatinine, Serum 0.62 mg/dL (0.55-1.02); EST Glomerular Filtration Rate 108 mL/min (>60); Est Glom Filt Rate - Afr Amer 130 mL/min (>60); Estimated Creatinine Clearance 95.51 ml/min; Glucose 87 mg/dL (74-106); Potassium 3.2 mmol/L (3.5-5.1); Sodium Level 141 mmol/L (136-145)
[2019-06-25] MEDS: Ondansetron 4 MG/2 ML Vial IV ×2 (02:37→08:03)
[2019-06-25] MEDS: Morphine 4 MG/ML Syringe IV (02:49)
--- NOTE | 2019-06-25 03:20 | CT_ITS ---
HISTORY: CP, EPIGASTRIC PAIN, BACK PAIN EXAMINATION: CTA Chest W Contrast Injection TECHNIQUE: Helically acquired images were obtained of the chest following IV contrast as per pulmonary angiogram protocol with 3D reconstructions. A radiation dose optimization technique was used for this scan. IV Contrast dosage and agent: 100 ML ISOVUE 370 IV COMPARISON: 11/19/2018 FINDINGS: LUNGS, PLEURA AND LARGE AIRWAYS: Mild dependent atelectasis, not unusual bilateral upper lobe mild centrilobular emphysema. Biapical minor scarring, unchanged. No acute infiltrate or pleural effusion. No pneumothorax. PULMONARY ARTERIES: Normal in caliber. No pulmonary embolism. Aorta, heart, and mediastinum: Thoracic aorta is atherosclerotic and normal in caliber. The ascending thoracic aorta is upper normal and size measuring 3.5 cm in diameter. No pericardial effusion. Previous CABG. No lymphadenopathy. Small hiatal hernia. Small fat-containing Bochdalek hernia on the left. UPPER ABDOMEN: No acute pathology. BONES: No acute osseous abnormality. CT/CTA Chest W/WO Contrast IMPRESSION: 1. No PE, thoracic aortic dissection, or acute chest disease identified. 2. Mild emphysema. Previous CABG. 3. Small hiatal hernia Individualized dose optimization techniques were used for this CT. at 0522 Reported and signed by: Hilton Gomez MD Electronically Signed: Hilton Gomez, at 5:21 EST Tel , Service support ,
--- NOTE | 2019-06-25 03:20 | CT_ITS ---
HISTORY: CHEST, EPIGASTRIC, BACK PAIN. PT'S IV CAME APART AND LEAKED ABOUT 30 ML HAD TO STOP SCAN, FIX IV, REINJECTED 70 ML EXAMINATION: CTA Abdomen and Pelvis W/ Contrast Injection (and W/O Contrast Images if performed) TECHNIQUE: Helically acquired images were obtained of the abdomen and pelvis following IV contrast. No oral contrast was administered. 3D CTA protocol was utilized. A radiation dose optimization technique was used for this scan. IV Contrast dosage and agent: IV 100 ML ISOVUE 370 COMPARISON: None FINDINGS: The abdominal aorta is atherosclerotic and normal in caliber. Infrarenal mild fusiform ectasia of the abdominal aorta which measures 2.2 cm in maximal dimension. Bilateral iliofemoral arterial flow. Wide patency of celiac and SMA. Single right renal artery and 2 left renal arteries which are patent. The SUELLEN remains patent. Small hiatal hernia. No radiopaque gallstones and no biliary dilatation. Negative liver and pancreas. The spleen is normal in size and shows heterogenous attenuation related to early CTA technique. The spleen shows normal attenuation by previous CT exam with IV contrast. Both kidneys are normal in position. Bilateral renal excretion of contrast without evidence of hydronephrosis, pyelonephritis, or suspicious renal lesion. Stable left renal cortical cyst. The adrenal glands are not enlarged. No ascites or retroperitoneal lymph node enlargement. GI tract: No obstruction. The cecum is low in position. Mild diverticulosis coli. Pelvis: No free fluid or lymph node enlargement. Normal urinary bladder. Anteverted uterus which is normal in size. Right inguinal small fat-containing hernia, unchanged. Ventral abdominal wall: Tiny fat-containing umbilical hernia. CT/CT ANGIO ABD&PEL W/O&W/DYE IMPRESSION: 1. Atherosclerotic abdominal aorta without evidence of aneurysm or aortic dissection. 2. No free fluid or acute disease identified. Stable findings with comparison to previous. 3. Small hiatal hernia, unchanged. Individualized dose optimization techniques were used for this CT. at 0537 Reported and signed by: Hilton Gomez MD Electronically Signed: Hilton Gomez, at 5:36 EST Tel , Service support ,
--- NOTE | 2019-06-25 03:21 | ED.DCSUM_ITS ---
History of Present Illness Chief Complaint: Chest Pain Informant: Patient Onset: Days Timing: Continuous Quality: Aching, Dull Narrative: Patient is a 54-year-old female with history of coronary artery disease and asthma presenting with chest pain, back pain and shortness of breath. Patient states the pain actually started 3 days ago. Started with a dizzy feeling and tingling in her left arm then her right. She then developed pain in her back/right shoulder. She states this felt like her prior CABG. Patient took her nitroglycerin and about 30 minutes later her symptoms passed. 2 days ago she woke up in a cold sweat and had recurrence of her symptoms. She developed a dull ache in her chest around 1130 tonight, about an hour prior to arrival. At 5 PM she developed cramping in her abdomen as well as nausea and one episode of vomiting. She has the back pain is been constant since Monday. She also feels intermittently short of breath and has had a cough. She is not wheezing. Patient notes she does continue to smoke cigarettes and did stop her Plavix because she felt that she did not need it anymore. She is continued to take her aspirin. 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 De La Rosa, and she was told to come to emergency room to check her troponins. Prior Similar Symptoms: Yes, With Prior Angina Past Medical History - Allergies and Home Meds Allergies/Adverse Reactions: Allergies No Known Allergies Allergy (Verified 06/25/19 02:02) Primary Care Physician: Care Physician,No Primary [Primary Care Provider] - Past Medical History: - - CAD, HTN, tobacco abuse, asthma, HTN, HLD Surgical History: coronary bypass surgery Smoking Status: Current every day smoker Review of Systems General: Reports: Sweats. Denies: Chills, Fever Eyes: Denies: Visual changes - bilaterally, Diplopia ENT: Denies: Rhinorrhea, Sore throat Cardiovascular: Reports: Chest pain. Denies: Palpitations Respiratory: Reports: Dyspnea. Denies: Cough, Dyspnea on exertion Gastrointestinal: Reports: Nausea, Vomiting. Denies: Abdominal pain, Diarrhea, Melena, Hematochezia Genitourinary: Denies: Dysuria, Hematuria, Frequency Musculoskeletal: Reports: Back pain. Denies: Extremity Pain Skin: Denies: Rash, Wounds Neurological: Denies: Headache, Weakness, Numbness Psych: Reports: Anxiety Physical Exam Vital Signs/Narrative: Vital Signs Temp Pulse Resp BP Pulse Ox 06/25/19 02:15 97 06/25/19 01:53 98.1 F 91 20 H 140/97 H 100 Inital Vital Signs reviewed: Yes General: Well nourished, Well developed, No Acute Distress Head: Normocephalic, Atraumatic Eyes: Perrl, EOMI ENT: Moist mucous membranes, No rhinorrhea Neck: Supple, Nontender, No JVD Cardiovascular: Regular rate, Regular rhythm, No murmurs, - - 2+ pulses in all extremities Respiratory: No distress, CTA bilaterally, Chest nontender. Negative for: Rhonchi, Wheezing, Chest tenderness Abdomen: Soft, Nontender, Nondistended, Normal bowel sounds. Negative for: Guarding, Rebound tenderness Back: Nontender, Normal Inspection. Negative for: CVA tenderness Extremities: Nontender, No edema Skin: Normal color, No rash Neurological: Alert, Oriented x3, Cranial nerves II-XII grossly intact, Normal Strength, Normal Sensation Psychological: Normal affect, Normal Mood, - - anxious Diagnostic/Tx/Re-eval Chest X-Ray - ED: 1 View, Read by ED Physician, Read by Radiologist, No Acute Disease CTA PE Study: No Evidence of PE, No Evidence of Dissection Clinical Impression(s) from Imaging Studies Chest X-Ray 06/25/19 02:09 IMPRESSION: No acute cardiopulmonary disease. Electronically Signed: Susan Marie MD at 3:27 EST , Service support , Laboratory Data 06/25/19 06/25/19 02:00 02:00 WBC 10.7 RBC 3.91 L Hgb 12.4 Hct 37.2 MCV 95.1 MCH 31.7 MCHC 33.3 RDW Std Deviation 42.2 RDW Coeff of Louie 12.0 Plt Count 248 MPV 9.8 Immature Gran % (Auto) 0.300 Neut % (Auto) 43.6 L Lymph % (Auto) 42.3 H [place] % (Auto) 8.8 Eos % (Auto) 4.3 Baso % (Auto) 0.7 Absolute Neuts (auto) 4.7 Absolute Lymphs (auto) 4.52 H Nucleated RBC % 0 Sodium 141 Potassium 3.2 L Chloride 106 Carbon Dioxide 29.0 Anion Gap 6 BUN 7 Creatinine 0.62 Estim Creat Clear Calc 95.51 Est GFR (MDRD) Af Amer 130 Est GFR (MDRD) Non-Af 108 BUN/Creatinine Ratio 11.3 Glucose 87 Calcium 9.2 Troponin I < 0.015 - Rhythm Strip Rhythm Strip: Sinus Rhythm Rate: 89 Ectopy: None - EKG Initial EKG Interpretation: Sinus Rhythm, - - Normal sinus rhythm at a rate of 89 Normal intervals By fascicular block QRS 142 QTc 498 Left axis deviation Nonspecific T wave inversion in V1 and V2 Compared to prior EKG on 10/29/2017 patient has no acute changes Treatment: Aspirin ELISA Risk: >/= 3RF, H/O CAD, ASA within 7 days Score: 3 - Medical Decision Making Patient is evaluated for atypical chest pain, back pain and abdominal pain. She is hemodynamically stable in the emergency room. Patient is ordered sublingual nitro but additionally refuses states she has a headache and will make it worse. She is then given morphine for pain. She is also given full dose aspirin. EKG does not show any dynamic changes. Troponin is negative. CBC and BMP are negative. Patient is starting to complain more of an epigastric pains I did add on a lipase and liver panel. This also is negative. Chest x-ray does not show any acute process. Because of patient's constellation of chest, back and abdominal pain I did order dissection study. CTA of the chest abdomen pelvis is negative for any acute process including dissection or PE. I did attempt a GI cocktail as well as another dose of analgesia for her pain. This did not improve it. Patient finally agrees to take nitroglycerin. It does improve her pain. Patient's heart score is 4 and she is moderate risk. Her ELISA score is 3. She will be admitted for further cardiac evaluation. Patient is stable for the general medical floor at time of disposition. Case discussed with admitting physician who is agreeable with this plan. ED Disposition - Plan for ED Patient: Diagnosis: Chest pain, Acute right-sided thoracic back pain Referrals: Care Physician,No Primary [Primary Care Provider] -
[2019-06-25] MEDS: DiphenhydrAMINE 25 MG Capsule PO (03:42)
--- NOTE | 2019-06-25 03:43 | ED.RN ---
PATIENT COMPLAINTS OF ITCHING AFTER THE MORPHINE. DR. DIAMOND MADE AWARE AND GAVE A VERBAL ORDER FOR BENEDRYL 25 MG PO, WHICH THIS NURSE GAVE.
[2019-06-25 05:25] LABS: ALB/GLOB Ratio 1.1 RATIO (0.9-2.4); AST(SGOT) 15 U/L (15-37); Alanine Aminotransfer ALT/SGPT 20 U/L (13-56); Albumin, Serum 4.1 g/dL (3.2-5.0); Alkaline Phosphatase 77 U/L (45-117); Globulin 3.7 g/dL (2.2-4.2); Lipase 97 U/L (73-393); Protein, Total 7.8 g/dL (6.4-8.2)
[2019-06-25] MEDS: HYDROmorphone 0.5 MG/0.5 ML SYRINGE IV (05:25)
[2019-06-25] MEDS: Mag Hydrox/Al Hydrox/Simeth 30 ML UDC PO (05:35)
[2019-06-25] MEDS: LORazepam 1 MG Tablet PO (06:09)
[2019-06-25] MEDS: Nitroglycerin SL (ED/IMG/CATH) 0.4 MG TABLET SUBLINGUAL (06:10)
--- NOTE | 2019-06-25 06:11 | HP.PCM_ITS ---
Problem List (1) Chest pain Status: Acute (2) Nicotine abuse Status: Acute (3) Asthma Status: Chronic Qualifiers: Asthma severity: unspecified severity Asthma persistence: unspecified Asthma complication type: unspecified Qualified Code(s): J45.909 - Unspecified asthma, uncomplicated (4) History of myocardial infarction Status: Chronic (5) Hyperlipemia Status: Chronic Qualifiers: Hyperlipidemia type: unspecified Qualified Code(s): E78.5 - Hyperlipidemia, unspecified (6) Essential hypertension Status: Chronic (7) Atherosclerotic heart disease of [place] coronary artery without angina pectoris Status: Chronic Qualifiers: [place] vs. transplanted heart: [place] heart Qualified Code(s): I25.10 - Atherosclerotic heart disease of [place] coronary artery without angina pectoris (8) COPD (chronic obstructive pulmonary disease) Status: Chronic Qualifiers: Chronic bronchitis type: unspecified History of Present Illness Date of Admission: 06/25/19 Chief Complaint: chest pain The patient is a 54 year old F with a significant history of CAD s/p CABG; Asthma; tobacco abuse; anxiety disorder and pulmonary embolism who presents emergency department with a 2-day history of progressively worsening left-sided chest pain that radiates to the left and and under her left armpit. Also she has pain in her right shoulder. She reported that with previous NV she only had pain in her right shoulder. Associated with her symptoms is nausea, vomiting, diaphoresis, lightheadedness and presyncope. Also,she has pain at her epigastric region. At emergency department she was given GI cocktail but that did not help her pain. CTA was negative for dissection and for pulmonary embolism. At the emergency plan she was given aspirin; nitroglycerin and morphine. Reportedly her pain subsided with this regimen. Family history is remarkable for heart disease in both maternal and paternal sides. The youngest person in the family who had heart attack was in a maternal uncle was around age 36. Past Medical History Past Medical History (Chronic Problems): Chronic Problems (Last Reviewed 11/16/18 @ 16:44 by ROCIO Fitzpatrick) Asthma (Chronic) History of myocardial infarction (Chronic) Hyperlipemia (Chronic) Essential hypertension (Chronic) Atherosclerotic heart disease of [place] coronary artery without angina pectoris (Chronic) COPD (chronic obstructive pulmonary disease) (Chronic) Medical History: Medical History (Last Reviewed 06/25/19 @ 07:35 by Porfirio Goddard MD) History of myocardial infarction (Chronic) I25.2 Hyperlipemia (Chronic) E78.5 Essential hypertension (Chronic) I10 Atherosclerotic heart disease of [place] coronary artery without angina pectoris (Chronic) I25.10 COPD (chronic obstructive pulmonary disease) (Chronic) J44.9 Acute exacerbation of chronic bronchitis J20.9, J42 Acute respiratory failure J96.00 Swelling of lower leg M79.89 Chronic bronchitis J42 Pulmonary embolism I26.99 Solitary lung nodule R91.1 AC (acromioclavicular) joint bone spurs M75.80 History of retained foreign body fully removed Z87.821 Allergies No Known Allergies Allergy (Verified 06/25/19 02:02) Home Medications: Ambulatory Orders Medication Instructions Recorded amlodipine 5 mg tablet 5 mg PO QHS 03/16/18 aspirin 81 mg tablet,delayed 81 mg PO QHS 03/16/18 release losartan 50 mg tablet 50 mg PO QHS 03/16/18 omeprazole 20 mg capsule,delayed 20 mg PO DAILY 03/16/18 release trazodone 50 mg tablet 100 mg PO QHS 03/16/18 nitroglycerin 0.4 mg sublingual 0.4 mg SUBLINGUAL Q5-15M PRN #90 03/29/18 tablet tab lorazepam 0.5 mg tablet 0.5 mg PO BID tab 09/26/18 metoprolol succinate 25 mg 25 mg PO QHS 09/26/18 tablet,extended release 24 hr albuterol sulfate 2.5 mg INHALATION .qid PRN #180 11/15/18 vial albuterol sulfate 90 mcg/actuation 2 puff INHALATION Q6H PRN #8.5 g 11/15/18 aerosol inhaler fluticasone propionate 50 2 spray INTRANASAL QDAY #1 device 11/15/18 mcg/actuation nasal spray,suspension Clopidogrel Bisulfate [Plavix] 75 mg PO QHS 11/19/18 Rosuvastatin Calcium 5 mg PO QHS 11/19/18 nicotine 21 mg/24 hr daily 1 patch TRANSDERMAL DAILY #28 ea 11/20/18 transdermal patch ondansetron HCl 8 mg tablet 8 mg PO BID PRN #20 tab 05/10/19 Surgical History: Surgical History (Last Reviewed 06/25/19 @ 07:35 by Porfirio Goddard MD) History of coronary artery bypass surgery (Resolved) Onset Date: ~05/24/15 Z95.1 CABG x3 CONKLIN to LAD BEKAH to PDA, SVG to OM1 05/24/15 H/O section Z98.891 History of carpal tunnel surgery Z98.890 History of tonsillectomy and adenoidectomy Z98.890 History of tubal ligation Z98.51 Hx of breast reduction, elective Z98.890 Polyps from throat removed S/P trigger finger release Z98.890 S/P triple vessel bypass Z95.1 Surgical History: coronary bypass surgery Lives: Alone Smoking Status: Current every day smoker Tobacco Use: Cigarettes - *Family History Maternal Family History: Family History (Last Reviewed 06/25/19 @ 07:31 by Porfirio Goddard MD) Mother Heart disease Aunt Heart disease Grandmother Heart disease Grandfather Heart disease Review of Systems Constitutional: Denies: Chills, Fever, Weight Change HEENT: Denies: Sinus Congestion, Sinus Drainage Cardiovascular: Reports: Chest Pain, Light Headedness. Denies: Palpitations Respiratory: Reports: Cough. Denies: Shortness of breath at rest, Sputum production Gastrointestinal: Reports: Abdominal Pain - Epigastric. Denies: Nausea, Vomiting Genitourinary: Denies: Dysuria Musculoskeletal: Denies: Joint Pain, Joint Tenderness Skin: Denies: Rash, Wounds Neurological: Denies: Numbness, Tingling, Focal weakness Psychiatric: Reports: Anxiety. Denies: Depression, Homicidal Ideations, Suicidal Ideations Hematologic/ Lymphatic: Denies: Easy Bruising, Easy Bleeding VTE Information - Inpt Only VTE Present on Admission: No VTE Mechan Device Prophylaxis: SCD's VTE Pharm Prophylaxis ordered?: No Patient Problems: Active and Suspected Problems (Last Reviewed 11/16/18 @ 16:44 by KENTRELL FitzpatrickC) Chest pain (Acute) - Physical Exam Vitals/I&O's: Vital Signs Temp Pulse Resp BP Pulse Ox 98.1 F 71 12 128/91 H 98 06/25/19 01:53 06/25/19 04:55 06/25/19 04:55 06/25/19 04:55 06/25/19 04:55 Oxygen Delivery Method Room Air Weight: 66.8 kg Body Mass Index (BMI) 24.5 General: Alert, Oriented x3, Cooperative HEENT: Atraumatic, PERRLA, EOMI, Normocephalic Neck: Supple, No JVD, Negative Carotid Bruits Lungs: Clear to auscultation, Normal air movement Cardiovascular: Regular rate, No murmurs Abdomen: Bowel Sounds Present, Soft, Non Tender Extremities: No edema, Capillary Refill Less than 3 Seconds Skin: No rashes, No breakdown Musculoskeletal: No Tenderness to Palpation of Joints or Extremities Neurological: Cranial nerves II-XII grossly intact Psych/Mental Status: Normal Affect, Appropriate Laboratory Results 06/25/19 02:00: WBC 10.7, RBC 3.91 L, Hgb 12.4, Hct 37.2, MCV 95.1, MCH 31.7, MCHC 33.3, RDW Std Deviation 42.2, RDW Coeff of Louie 12.0, Plt Count 248, MPV 9.8, Immature Gran % (Auto) 0.300, Neut % (Auto) 43.6 L, Lymph % (Auto) 42.3 H, [place] % (Auto) 8.8, Eos % (Auto) 4.3, Baso % (Auto) 0.7, Absolute Neuts (auto) 4.7, Absolute Lymphs (auto) 4.52 H, Nucleated RBC % 0 06/25/19 02:00: Sodium 141, Potassium 3.2 L, Chloride 106, Carbon Dioxide 29.0, Anion Gap 6, BUN 7, Creatinine 0.62, Estim Creat Clear Calc 95.51, Est GFR (MDRD) Af Amer 130, Est GFR (MDRD) Non-Af 108, BUN/Creatinine Ratio 11.3, Glucose 87, Calcium 9.2, Total Bilirubin 0.60, AST 15, ALT 20, Alkaline Phosphatase 77, Troponin I < 0.015, Total Protein 7.8, Albumin 4.1, Globulin 3.7, Albumin/Globulin Ratio 1.1, Lipase 97 Current Medications Nitroglycerin (Nitrostat) 0.4 mg SUBLINGUAL Q5M PRN PRN Reason: Chest pain Assessment/Plan All Active Problems (Last Reviewed 11/16/18 @ 16:44 by KENTRELL FitzpatrickC) Chest pain (Acute) Nicotine abuse (Acute) History of coronary artery bypass surgery (Resolved ~05/24/15) The patient is a 54 year old F with a significant history of CAD s/p CABG; Asthma; tobacco abuse; anxiety disorder and pulmonary embolism who presents emergency department with a 2-day history of progressively worsening left-sided chest pain Chest pain Place on a monitored bed at the PCU CXR independently reviewed confirms no acute cardiopulmonary process. CTA chest did not show any dissection or pulmonary embolism. EKG independently reviewed confirms left anterior fascicular block; unchanged from previous. ASA 81 mg p.o. daily Morphine as needed for pain We will check lipid panel. Statin: Crestor continued Serial cardiac enzymes Stat EKG as needed for chest pain Dobutamine treadmill stress test in the AM if the cardiac enzymes are negative . Hold metoprolol for stress test. Losartan continued Cardiology consult Hypertension On presentation her blood pressure was now within goal Amlodipine continued. Losartan continued Trend blood pressure and adjust blood pressure medications. Tobacco abuse Nicotine patch continued Counselled Asthma Breathing treatments continued Anxiety disorder Lorazepam continued DVT prophylaxis SCD Code Visit OBSV E&M: 32464 Initial observation care L3
--- NOTE | 2019-06-25 07:11 | EKG12_ITS ---
Test Reason : CP ADMISSION Blood Pressure : / mmHG Vent. Rate : 075 BPM Atrial Rate : 075 BPM P-R Int : 186 ms QRS Dur : 140 ms QT Int : 444 ms P-R-T Axes : 066 -41 033 degrees QTc Int : 495 ms Normal sinus rhythm Left axis deviation Right bundle branch block Inferior infarct , age undetermined Abnormal ECG When compared with ECG of 25-JUN-2019 01:54, MANUAL COMPARISON REQUIRED, DATA IS UNCONFIRMED Confirmed by MICHELLE ENCISO, ALETA ([id number]), assistant production editor EBONIE STEEN ([id number]) on 06/28/2019 2:42:44 PM Referred By: DR BILLIE Pritchard Confirmed By:PRAVEEN MARTINEZ MD
[2019-06-25 07:46] LABS: Cholesterol 186 mg/dL (200); High Density Lipoprotein 32 mg/dL; Triglycerides 232 mg/dL; Very Low Density Lipoprotein 46 mg/dL (5-40)
[2019-06-25] MEDS: Morphine 2 MG/ML Syringe IV (08:02)
--- NOTE | 2019-06-25 11:32 | STRESSREP ---
Stress Test Report Date: 06-25-2019 Procedure: Exercise tolerance test/imaging study Indications: Chest pain; CAD; CABG Consent: Per the patient Procedure: The patient exercised on a Juan protocol for 7 minutes and 17 seconds completing Stage I and 1 minute and 17 seconds of Stage II achieving a peak heart rate of 142 bpm (85 % predicted maximal heart rate) with a peak blood pressure 130/88 mmHg and a peak MET capacity of 8 METs. The baseline ECG demonstrated normal sinus rhythm; right bundle branch block pattern. The peak exercise ECG demonstrated no obvious ECG changes. There were no cardiac dysrhythmias pretest, during exercise, or recovery. The functional capacity was considered average. There was planes of shoulder discomfort, nominal discomfort, nausea, back discomfort, and headache. The examination was discontinued secondary to discomfort and dyspnea. Impression: 1. Technically adequate (percent predicted maximal heart rate greater than 85%) exercise tolerance test 2. Peak exercise ECG with no obvious ECG changes 3. There were no cardiac dysrhythmias pretest, during exercise, or recovery 4. Nuclear images pending Myocardial perfusion imaging study: Technique: The patient was injected with 12.0 mCi of technetium 99m Cardiolite and subsequently rest SPECT Cardiolite nuclear imaging was obtained in the horizontal long, vertical long, and short axis views. The patient exercised on a Juan protocol for 7 minutes and 17 seconds completing Stage I and 1 minute and 17 seconds of Stage II achieving a peak heart rate of 142 bpm (84 % predicted maximal heart rate) with a peak blood pressure 130/88 mmHg and a peak MET capacity of 8 METs. The patient was injected with 34.3 mCi of technetium 99m Cardiolite and subsequently stress SPECT Cardiolite nuclear imaging was obtained in the horizontal long, vertical long, and short axis views. A gated Cardiolite study at peak stress was obtained. Interpretation: Rest and stress SPECT Cardiolite nuclear imaging status post realignment, normalization, and attenuation correction, demonstrates the appearance of relative uniform tracer uptake and myocardial perfusion appearing within normal limits. There is end systolic thickening and brightening. The gated Cardiolite study demonstrates myocardial thickening and inward wall motion. The reported LVEF is 75 %. Impression: 1. Rest and stress SPECT Cardiolite nuclear imaging demonstrate relative uniform tracer uptake and myocardial perfusion appearing within normal limits. 2. The gated Cardiolite study reports an LVEF of 75 %. This note was generated with [employer]Pics ([email or web address]) software. It may contain incorrect words, spelling, and punctuation that were not noted in checking the note before signing.
[2019-06-25] MEDS: LORazepam 0.5 MG Tablet PO (11:36)
[2019-06-25] MEDS: Fluticasone 0.05% 1 SPRAY NASAL.SRY 2 SPRAY NASAL (11:37)
[2019-06-25] MEDS: Pantoprazole Sodium 20 MG Tablet PO (11:37)
--- NOTE | 2019-06-25 11:47 | DCINST_ITS ---
- Discharge Diagnoses Current Active Problems: Current Active and Chronic Problems (Last Reviewed 06/25/19 @ 07:35 by Porfirio Goddard MD) Chest pain (Acute) You will use the following diet at home:: Cardiac Discharge Activity: Return to Normal Activity Call your doctor if you observe: Shortness of breath, Dizziness, Fainting spells, Chest pain Allergies/Adverse Reactions: Allergies No Known Allergies Allergy (Verified 06/25/19 02:02) Medications to take at Discharge amlodipine 5 mg tablet 5 mg PO QHS 03/16/18 aspirin 81 mg tablet,delayed release 81 mg PO QHS 03/16/18 losartan 50 mg tablet 50 mg PO QHS 03/16/18 omeprazole 20 mg capsule,delayed release 20 mg PO DAILY 03/16/18 trazodone 50 mg tablet 100 mg PO QHS 03/16/18 nitroglycerin 0.4 mg sublingual tablet 0.4 mg SUBLINGUAL Q5-15M PRN #90 tab 1 metoprolol succinate 25 mg tablet,extended release 24 hr 25 mg PO QHS 09/26/18 albuterol sulfate 2.5 mg INHALATION .qid PRN #180 vial 11/15/18 albuterol sulfate 90 mcg/actuation aerosol inhaler 2 puff INHALATION Q6H PRN #8.5 g 11/15/18 fluticasone propionate 50 mcg/actuation nasal spray,suspension 2 spray INTRANASAL QDAY #1 device 11/15/18 Rosuvastatin Calcium 5 mg PO QHS 11/19/18 ondansetron HCl 8 mg tablet 8 mg PO BID PRN #20 tab 05/10/19 Lorazepam [Ativan] 0.5 mg PO BID PRN #6 tab 06/25/19 Pantoprazole Sodium [Protonix] 40 mg PO BID #56 tab 06/25/19 Prednisone See Taper PO DAILY #30 tab 06/25/19 The following prescriptions were given: Lorazepam [Ativan] 0.5 mg PO BID PRN #6 tab PRN Reason: Anxiety Transmission Status: Received by [facility] Prednisone See Taper PO DAILY #30 tab Transmission Status: Pending to [facility] Pantoprazole Sodium [Protonix] 40 mg PO BID #56 tab Transmission Status: Pending to [facility] Primary Care Physician: Care Physician,No Primary [Primary Care Provider] - Please follow up with your Primary Care Physician in: 3-5 days Test Results: Test results from this visit will be discussed in further detail at your follow- up appointment, if applicable. Please Follow Up With: Jose M Mcgregor MD When: See DIRECTOR OF DIGITAL PLATFORMS/PA in 2 weeks Proposed Discharge Date: 06/25/19
--- NOTE | 2019-06-25 13:03 | PCM.DC.SUM ---
<Camelia Mcarthur - Last Filed: 06/25/19 13:24> Discharge Date and Diagnosis Date of Admission: 06/25/19 Date of Discharge: 06/25/19 - Primary Discharge Diagnosis Active and Suspected Problems (Last Reviewed 06/25/19 @ 07:35 by Porfirio Goddard MD) 1. Pleuritic pain, ACS ruled out 2. Bronchitis/URI with bronchospasm, underlying chronic asthma 3. GERD 4. CAD with hx of CABG 5. Hypertension 6. Hyperlipidemia 7. Tobacco dependence 8. Anxiety - Secondary Discharge Diagnosis Chronic Problems (Last Reviewed 06/25/19 @ 07:35 by Porfirio Goddard MD) Asthma (Chronic) History of myocardial infarction (Chronic) Hyperlipemia (Chronic) Essential hypertension (Chronic) Atherosclerotic heart disease of [place] coronary artery without angina pectoris (Chronic) COPD (chronic obstructive pulmonary disease) (Chronic) Hospital Course and Treatment Imaging Results: Diagnostic Data Chest X-Ray 06/25/19 02:09 IMPRESSION: No acute cardiopulmonary disease. Electronically Signed: Susan Marie MD at 3:27 EST , Service support , Abdomen/Pelvis CTA 06/25/19 03:20 IMPRESSION: 1. Atherosclerotic abdominal aorta without evidence of aneurysm or aortic dissection. 2. No free fluid or acute disease identified. Stable findings with comparison to previous. 3. Small hiatal hernia, unchanged. Individualized dose optimization techniques were used for this CT. at 0537 Reported and signed by: Hilton Gomez MD Electronically Signed: Hilton Gomez at 5:36 EST Tel , Service support , Chest CTA 06/25/19 03:20 IMPRESSION: 1. No PE, thoracic aortic dissection, or acute chest disease identified. 2. Mild emphysema. Previous CABG. 3. Small hiatal hernia Individualized dose optimization techniques were used for this CT. at 0522 Reported and signed by: Hilton Gomez MD Electronically Signed: Hilton Gomez, at 5:21 EST Tel , Service support , Dr. Mcgregor- Cardiology Operations: None Procedures: Stress test Summary of Care Provided: The patient is a 54 year old F admitted 06/25/19 due to chest pain. 1. Pleuritic pain, ACS ruled out-troponin negative. EKG without ST-T changes. Chest CTA without dissection or PE. Mild emphysema. Abdomen and pelvis CT showed no acute process, small hiatal hernia. Stress test demonstrated EF of 75%, no evidence of ischemia. Continue outpatient follow-up with cardiology. Patient reports harsh cough for the past 4 to 6 weeks, suspect right chest pain is pleuritic in nature. Recommended ibuprofen as needed for pain. Follow-up with primary care provider in 3 to 5 days. 2. Bronchitis/URI with bronchospasm, underlying chronic asthma-patient reports harsh cough and wheezing for the past month. Wheezing on exam. Prednisone taper at discharge. Continue as needed albuterol inhaler. Patient previously followed with pulmonary medicine however has not followed up recently. Recommend follow-up with Sarah Katz in 1 to 2 weeks. 3. GERD-possible component of GERD related to presenting chest discomfort. Increase PPI to 40 mg twice daily for 14 days, then resume previously prescribed omeprazole 20 mg daily. If patient has persistent symptoms, recommend referral to GI for further evaluation. 4. CAD with hx of CABG- follows with Dr. Mcgregor- stress negative as noted above. Continue aspirin, statin, beta-walter. 5. Hypertension- stable, continue amlodipine, losartan, metoprolol. 6. Hyperlipidemia- continue statin. 7. Tobacco dependence- encouraged cessation. 8. Anxiety-continue trazodone and PRN lorazepam regimen. Patient has had difficulty establishing with new primary care provider and requesting lorazepam. Patient given 6 tabs of PRN lorazepam until she is able to establish with primary care provider. Patient seen and examined prior to discharge. Physical assessment as noted below. Patient is stable for discharge with follow up recommendations as noted above. This patient was seen by ROCIO Paez under the supervision of Dr. Lawrence. - Physical Exam Vitals/I&O's: Vital Signs Temp Pulse Resp BP Pulse Ox 97.7 F L 73 18 121/81 H 98 06/25/19 06:58 06/25/19 07:16 06/25/19 06:58 06/25/19 06:58 06/25/19 08:00 Oxygen Delivery Method Room Air Weight: 145 lb 2 oz Body Mass Index (BMI) 24.1 General: Alert, Oriented x3, Cooperative HEENT: Atraumatic, PERRLA, EOMI, Normocephalic Neck: Supple, No JVD, Negative Carotid Bruits Lungs: Diminished, Wheezes Cardiovascular: Regular rate, Regular Rhythm, Normal S1, Normal S2, No murmurs Abdomen: Bowel Sounds Present, Soft, Non Tender, Non-Distended Extremities: No clubbing, No cyanosis, No edema, Capillary Refill Less than 3 Seconds Skin: No rashes, No breakdown Musculoskeletal: No Tenderness to Palpation of Joints or Extremities Neurological: Cranial nerves II-XII grossly intact, Neuro grossly intact Psych/Mental Status: Anxious Laboratory Results 06/25/19 02:00: WBC 10.7, RBC 3.91 L, Hgb 12.4, Hct 37.2, MCV 95.1, MCH 31.7, MCHC 33.3, RDW Std Deviation 42.2, RDW Coeff of Louie 12.0, Plt Count 248, MPV 9.8, Immature Gran % (Auto) 0.300, Neut % (Auto) 43.6 L, Lymph % (Auto) 42.3 H, Potter % (Auto) 8.8, Eos % (Auto) 4.3, Baso % (Auto) 0.7, Absolute Neuts (auto) 4.7, Absolute Lymphs (auto) 4.52 H, Nucleated RBC % 0 06/25/19 02:00: Sodium 141, Potassium 3.2 L, Chloride 106, Carbon Dioxide 29.0, Anion Gap 6, BUN 7, Creatinine 0.62, Estim Creat Clear Calc 95.51, Est GFR (MDRD) Af Amer 130, Est GFR (MDRD) Non-Af 108, BUN/Creatinine Ratio 11.3, Glucose 87, Calcium 9.2, Total Bilirubin 0.60, AST 15, ALT 20, Alkaline Phosphatase 77, Troponin I < 0.015, Total Protein 7.8, Albumin 4.1, Globulin 3.7, Albumin/Globulin Ratio 1.1, Lipase 97 06/25/19 07:10: Troponin I < 0.015 06/25/19 07:10: Magnesium 2.0, Triglycerides 232 H, Cholesterol 186, LDL Cholesterol 108, VLDL Cholesterol 46 H, HDL Cholesterol 32 L 06/25/19 11:20: Troponin I < 0.015 Current Medications Acetaminophen (Tylenol) 650 mg PO Q6H PRN PRN PRN Reason: Pain Score 1-3/Temp > 100.7 F Al Hydroxide/Mg Hydroxide (Mylanta Ii) 30 ml PO Q6H PRN PRN PRN Reason: Gastric Burning Albuterol/Ipratropium (Duoneb) 3 ml INHALATION Q4H.RT PRN PRN Reason: sob/wheezing Amlodipine Besylate (Norvasc) 5 mg PO QHS [facility] Aspirin (Ecotrin) 81 mg PO QHS [facility] Atorvastatin Calcium (Lipitor) 10 mg PO QHS [facility] Clopidogrel Bisulfate (Plavix) 75 mg PO QHS [facility] Fluticasone Propionate (Flonase Nasal [place]) 2 spray NASAL DAILY [facility] Last Admin: 06/25/19 11:37 Dose: 2 spray Documented by: Glucagon () 1 mg IM .X1 PRN PRN Reason: Hypoglycemia Sodium Chloride () 250 mls @ 15 mls/hr IV .[id number] PRN PRN Reason: Saline Flush Sodium Chloride () 250 mls @ 15 mls/hr IV .[id number] PRN PRN Reason: Additional IVPB Infusion Dextrose (Dextrose 10%-Water) 250 mls @ 999 mls/hr IV .Q16M PRN; Protocol PRN Reason: HYPOGLYCEMIA Lorazepam (Ativan) 0.5 mg PO BID [facility] Last Admin: 06/25/19 11:36 Dose: 0.5 mg Documented by: Losartan Potassium (Cozaar) 50 mg PO QHS [facility] Morphine Sulfate () 2 mg IV Q3H PRN PRN PRN Reason: Pain Score 6-10/10 Last Admin: 06/25/19 08:02 Dose: 2 mg Documented by: Nicotine (Nicoderm Cq (Pbkc)) 21 mg TRANSDERM. DAILY [facility] Last Admin: 06/25/19 11:40 Dose: 21 mg Documented by: Ondansetron HCl (Zofran) 4 mg IV Q8H PRN PRN PRN Reason: NAUSEA/VOMITING Last Admin: 06/25/19 08:03 Dose: 4 mg Documented by: Pantoprazole Sodium (Protonix) 20 mg PO DAILY [facility] Last Admin: 06/25/19 11:37 Dose: 20 mg Documented by: Sodium Chloride () 10 - 40 ml IV UD PRN PRN Reason: SALINE FLUSH Trazodone HCl (Desyrel) 100 mg PO QHS [facility] Discharge Diet: Low fat/ Low Cholesterol Discharge Activity: Return to Normal Activity Call your doctor if you observe: Shortness of breath, Dizziness, Fainting spells, Chest pain Home Medications: Medications to take at Discharge amlodipine 5 mg tablet 5 mg PO QHS 03/16/18 aspirin 81 mg tablet,delayed release 81 mg PO QHS 03/16/18 losartan 50 mg tablet 50 mg PO QHS 03/16/18 omeprazole 20 mg capsule,delayed release 20 mg PO DAILY 03/16/18 trazodone 50 mg tablet 100 mg PO QHS 03/16/18 nitroglycerin 0.4 mg sublingual tablet 0.4 mg SUBLINGUAL Q5-15M PRN #90 tab 03/29/18 metoprolol succinate 25 mg tablet,extended release 24 hr 25 mg PO QHS 09/26/18 albuterol sulfate 2.5 mg INHALATION .qid PRN #180 vial 11/15/18 albuterol sulfate 90 mcg/actuation aerosol inhaler 2 puff INHALATION Q6H PRN #8.5 g 11/15/18 fluticasone propionate 50 mcg/actuation nasal spray,suspension 2 spray INTRANASAL QDAY #1 device 11/15/18 Rosuvastatin Calcium 5 mg PO QHS 11/19/18 ondansetron HCl 8 mg tablet 8 mg PO BID PRN #20 tab 05/10/19 Lorazepam [Ativan] 0.5 mg PO BID PRN #6 tab 06/25/19 Pantoprazole Sodium [Protonix] 40 mg PO BID #56 tab 06/25/19 Prednisone See Taper PO DAILY #30 tab 06/25/19 Following Prescrptions Were Given to Patient: Lorazepam [Ativan] 0.5 mg PO BID PRN #6 tab PRN Reason: Anxiety Transmission Status: Received by [facility] Prednisone See Taper PO DAILY #30 tab Transmission Status: Received by [facility] Pantoprazole Sodium [Protonix] 40 mg PO BID #56 tab Transmission Status: Received by [facility] Primary Care Physician: Care Physician,No Primary [Primary Care Provider] - Please follow up with your Primary Care Physician in: 3-5 days Please Follow Up With: Jose M Mcgregor MD When: See GEL [facility]ATER/PA in 2 weeks Please Follow Up With: Sarah Katz NP-C When: 1-2 weeks Disposition: Home Minutes spent on discharge:: 35 Patient Condition:: Stable Medical Necessity - Tobacco Use Smoking Status: Current every day smoker Tobacco Use: Cigarettes Meaningful Use Info Meaningful Use Diagnoses (Choose all that apply): None applicable <Tyesha Lawrence E - Last Filed: 06/25/19 13:51> Discharge Date and Diagnosis - Secondary Discharge Diagnosis Chronic Problems (Last Reviewed 06/25/19 @ 07:35 by Porfirio Goddard MD) CAD in [place] artery (Chronic) Asthma (Chronic) History of myocardial infarction (Chronic) Hyperlipemia (Chronic) Essential hypertension (Chronic) Atherosclerotic heart disease of [place] coronary artery without angina pectoris (Chronic) COPD (chronic obstructive pulmonary disease) (Chronic) Hospital Course and Treatment Imaging Results: 06/25/19 08:50 Nuclear Stress Test - Treadmil [NM] Routine Summary of Care Provided: Hospitalist note: Discharge summary above reviewed and I concur with the above discharge plan. Patient was admitted for chest pain for evaluation. The pain was epigastric in location, has been going on since Monday, persistent, hard to describe according to the patient. Her EKG revealed no evidence of stress-induced myocardial ischemia. Her troponin was negative. CTA chest was done and showed no PE or dissection. CTA abdomen and pelvis showed no acute intra-abdominal findings, small hiatal hernia. Patient underwent nuclear stress test that was negative for stress-induced myocardial ischemia. ACS ruled out. Her routine blood work was unremarkable. LFT and lipase were normal. Her chest pain could be due to GERD versus pleuritic chest pain. She may have a component of GERD although patient has been on omeprazole at home. Patient discharged home in a stable medical condition, discharged on Protonix 40 mg p.o. twice daily, discharged on prednisone taper for probable bronchitis/URTI, continued in her previous home medications without any changes, recommended follow-up with PCP in 3 to 5 days and patient may need referral to GI as outpatient, recommended follow-up with cardiology in 2 weeks. - Physical Exam General: Alert, Oriented x3, Cooperative, No apparent distress. HEENT: Atraumatic, PERRLA, EOMI. Neck: Supple, No JVD, Negative Carotid Bruits, Trachea Midline, Thyroid Normal. Lungs: Clear to auscultation, Normal air movement, No rhonchi, No wheeze, No rales. Cardiovascular: Regular rate, Regular Rhythm, Normal S1, Normal S2, PMI Normal. Abdomen: Bowel Sounds Present, Soft, Non Tender, Non-Distended, No Hepato-splenomegaly. Extremities: No clubbing, No cyanosis, No edema Skin: No rashes, No breakdown Neurological: Neuro grossly intact Vital Signs are stable. This note was generated with [employer] dictation software. It may contain incorrect words, spelling, and punctuation that were not noted in checking the note before signing. - Physical Exam Vitals/I&O's: Vital Signs Temp Pulse Resp BP Pulse Ox 98.4 F 79 16 120/79 97 06/25/19 12:50 06/25/19 12:50 06/25/19 12:50 06/25/19 12:50 06/25/19 12:50 Oxygen Delivery Method Room Air Weight: 145 lb 2 oz Body Mass Index (BMI) 24.1 Intake and Output for Last 24 Hours 06/23/19 06/24/19 06/25/19 23:59 23:59 23:59 Intake Total 480 / 480 Balance 480 / 480 Laboratory Results 06/25/19 02:00: WBC 10.7, RBC 3.91 L, Hgb 12.4, Hct 37.2, MCV 95.1, MCH 31.7, MCHC 33.3, RDW Std Deviation 42.2, RDW Coeff of Louie 12.0, Plt Count 248, MPV 9.8, Immature Gran % (Auto) 0.300, Neut % (Auto) 43.6 L, Lymph % (Auto) 42.3 H, Potter % (Auto) 8.8, Eos % (Auto) 4.3, Baso % (Auto) 0.7, Absolute Neuts (auto) 4.7, Absolute Lymphs (auto) 4.52 H, Nucleated RBC % 0 06/25/19 02:00: Sodium 141, Potassium 3.2 L, Chloride 106, Carbon Dioxide 29.0, Anion Gap 6, BUN 7, Creatinine 0.62, Estim Creat Clear Calc 95.51, Est GFR (MDRD) Af Amer 130, Est GFR (MDRD) Non-Af 108, BUN/Creatinine Ratio 11.3, Glucose 87, Calcium 9.2, Total Bilirubin 0.60, AST 15, ALT 20, Alkaline Phosphatase 77, Troponin I < 0.015, Total Protein 7.8, Albumin 4.1, Globulin 3.7, Albumin/Globulin Ratio 1.1, Lipase 97 06/25/19 07:10: Troponin I < 0.015 06/25/19 07:10: Magnesium 2.0, Triglycerides 232 H, Cholesterol 186, LDL Cholesterol 108, VLDL Cholesterol 46 H, HDL Cholesterol 32 L 06/25/19 11:20: Troponin I < 0.015 Current Medications Acetaminophen (Tylenol) 650 mg PO Q6H PRN PRN PRN Reason: Pain Score 1-3/Temp > 100.7 F Al Hydroxide/Mg Hydroxide (Mylanta Ii) 30 ml PO Q6H PRN PRN PRN Reason: Gastric Burning Albuterol/Ipratropium (Duoneb) 3 ml INHALATION Q4H.RT PRN PRN Reason: sob/wheezing Amlodipine Besylate (Norvasc) 5 mg PO QHS [facility] Aspirin (Ecotrin) 81 mg PO QHS [facility] Atorvastatin Calcium (Lipitor) 10 mg PO QHS [facility] Clopidogrel Bisulfate (Plavix) 75 mg PO QHS [facility] Fluticasone Propionate (Flonase Nasal [place]) 2 spray NASAL DAILY [facility] Last Admin: 06/25/19 11:37 Dose: 2 spray Documented by: Glucagon () 1 mg IM .X1 PRN PRN Reason: Hypoglycemia Sodium Chloride () 250 mls @ 15 mls/hr IV .[id number] PRN PRN Reason: Saline Flush Sodium Chloride () 250 mls @ 15 mls/hr IV .[id number] PRN PRN Reason: Additional IVPB Infusion Dextrose (Dextrose 10%-Water) 250 mls @ 999 mls/hr IV .Q16M PRN; Protocol PRN Reason: HYPOGLYCEMIA Lorazepam (Ativan) 0.5 mg PO BID [facility] Last Admin: 06/25/19 11:36 Dose: 0.5 mg Documented by: Losartan Potassium (Cozaar) 50 mg PO QHS [facility] Morphine Sulfate () 2 mg IV Q3H PRN PRN PRN Reason: Pain Score 6-10/10 Last Admin: 06/25/19 08:02 Dose: 2 mg Documented by: Nicotine (Nicoderm Cq (Pbkc)) 21 mg TRANSDERM. DAILY [facility] Last Admin: 06/25/19 11:40 Dose: 21 mg Documented by: Ondansetron HCl (Zofran) 4 mg IV Q8H PRN PRN PRN Reason: NAUSEA/VOMITING Last Admin: 06/25/19 08:03 Dose: 4 mg Documented by: Pantoprazole Sodium (Protonix) 20 mg PO DAILY [facility] Last Admin: 06/25/19 11:37 Dose: 20 mg Documented by: Sodium Chloride () 10 - 40 ml IV UD PRN PRN Reason: SALINE FLUSH Trazodone HCl (Desyrel) 100 mg PO QHS [facility] Disposition: Home Minutes spent on discharge:: 27 Patient Condition:: Stable Meaningful Use Info Meaningful Use Diagnoses (Choose all that apply): None applicable Code Visit OBSV E&M: 29092 Observation care discharge
--- NOTE | 2019-06-25 13:10 | PCA ---
List of area PCPs given to patient with D/C paperwork.
--- NOTE | 2019-06-25 13:18 | CASEMGMT ---
Patient was requesting a list of primary care doctors that take her insurance. SW printed out a list of doctors that take [facility] in [place] and [place]. SW gave patient this list and also told her if she has access to a computer or the internet she could go to [facility]'s website to find places and doctors that take her insurance. Alee FRANCIS MSW
--- NOTE | 2019-06-25 13:29 | PCM.CONS.C ---
Problem List (1) Chest pain Status: Acute (2) CAD in [place] artery Status: Chronic (3) History of coronary artery bypass surgery Status: Resolved Comment: CABG x3 CONKLIN to LAD BEKAH to PDA, SVG to OM1 05/24/15 (4) Hyperlipemia Status: Chronic Qualifiers: Hyperlipidemia type: unspecified Qualified Code(s): E78.5 - Hyperlipidemia, unspecified (5) Essential hypertension Status: Chronic (6) COPD (chronic obstructive pulmonary disease) Status: Chronic Qualifiers: Chronic bronchitis type: unspecified Reason for Consult Date of Consultation: 06/25/19 History of Present Illness: The patient is a 54 year old white female with a past cardiovascular history which is included underlying CAD, GA, CABG, subsequent pacemaker wire migration subsequently being removed by an interventional radiologist from the pulmonary artery system at the [facility], superimposed upon hyperlipidemia, hypertension, and COPD who is referred for evaluation of chest pain. The patient states that for the last 3 months she has had concerns of nausea, emesis, and based upon this weight loss of approximately 30 pounds. She states over the last several days she has had a combination of epigastric discomfort which appears to push on her chest with associated right shoulder/right scapula discomfort as well as abdominal discomfort, nausea, emesis, as well as a sensation of shortness of breath/dyspnea. There has been no obvious orthopnea or PND or peripheral pitting edema. She has denied ongoing palpitations, near-syncope, syncope, or diarrhea. Based upon her ongoing symptoms she presented to the [facility] emergency department for further evaluation and care. She was evaluated with laboratory studies demonstrating negative troponin I levels, an ECG that demonstrated sinus rhythm with left axis deviation with a right bundle branch block pattern and a possible left anterior fascicular block pattern as well as an inferior GA pattern of indeterminate age which could not be excluded. She underwent radiologic studies which included both a chest as well as an abdominal/pelvic CT scan. Per the radiology report this did not appear to demonstrate any obvious great vessel disease thought to explain her symptoms. She does have a hiatal hernia which she states is chronic. She has been placed in the PCU. She has undergone cardiac rhythm monitoring which was demonstrated sinus rhythm. She has subsequently undergone additional cardiovascular evaluation with an exercise tolerance test/imaging study. The results are as noted below. In the interim she states she is being evaluated by her physicians in [place], [place] from a gastrointestinal standpoint. She states she was evaluated by a general surgeon who told her your gallbladder is not the problem . [] Past Medical History Allergies/Adverse Reactions: Allergies No Known Allergies Allergy (Verified 06/25/19 02:02) Home Medications: Ambulatory Orders Medication Instructions Recorded amlodipine 5 mg tablet 5 mg PO QHS 03/16/18 aspirin 81 mg tablet,delayed 81 mg PO QHS 03/16/18 release losartan 50 mg tablet 50 mg PO QHS 03/16/18 omeprazole 20 mg capsule,delayed 20 mg PO DAILY 03/16/18 release trazodone 50 mg tablet 100 mg PO QHS 03/16/18 nitroglycerin 0.4 mg sublingual 0.4 mg SUBLINGUAL Q5-15M PRN #90 03/29/18 tablet tab metoprolol succinate 25 mg 25 mg PO QHS 09/26/18 tablet,extended release 24 hr albuterol sulfate 2.5 mg INHALATION .qid PRN #180 11/15/18 vial albuterol sulfate 90 mcg/actuation 2 puff INHALATION Q6H PRN #8.5 g 11/15/18 aerosol inhaler fluticasone propionate 50 2 spray INTRANASAL QDAY #1 device 11/15/18 mcg/actuation nasal spray,suspension Rosuvastatin Calcium 5 mg PO QHS 11/19/18 ondansetron HCl 8 mg tablet 8 mg PO BID PRN #20 tab 05/10/19 Lorazepam [Ativan] 0.5 mg PO BID PRN #6 tab 06/25/19 Pantoprazole Sodium [Protonix] 40 mg PO BID #56 tab 06/25/19 Prednisone See Taper PO DAILY #30 tab 06/25/19 Past Medical History (Chronic Problems): Chronic Problems (Last Reviewed 06/25/19 @ 07:35 by Porfirio Goddard MD) CAD in [place] artery (Chronic) Asthma (Chronic) History of myocardial infarction (Chronic) Hyperlipemia (Chronic) Essential hypertension (Chronic) Atherosclerotic heart disease of [place] coronary artery without angina pectoris (Chronic) COPD (chronic obstructive pulmonary disease) (Chronic) Surgical History: coronary bypass surgery - *Family History Maternal Family History: Family History (Last Reviewed 06/25/19 @ 07:31 by Porfirio Goddard MD) Mother Heart disease Aunt Heart disease Grandmother Heart disease Grandfather Heart disease Lives: Alone Smoking Status: Current every day smoker Tobacco Use: Cigarettes Alcohol: None Drugs: None Review of Systems - Review of Systems General: Reports: Decreased Appetite, Weight Loss. Denies: Fever, Fatigue, Night Sweats Cardiovascular: Reports: Chest Discomfort, Shortness of Breath Respiratory: Reports: Shortness of Breath. Denies: Cough, Sputum Production, Hemoptysis Gastrointestinal: Reports: Abdominal Discomfort, Nausea, Emesis. Denies: Hematemesis, Hematochezia, Melena Genitourinary: Denies: Dysuria, Hematuria Skin: Denies: Rash Subjectve: This is a 54-year-old white female who appears to be resting comfortably in no acute distress. Objective: Vital Signs Temp Pulse Resp BP Pulse Ox 98.4 F 79 16 120/79 97 06/25/19 12:50 06/25/19 12:50 06/25/19 12:50 06/25/19 12:50 06/25/19 12:50 Oxygen Delivery Method Room Air Weight: 145 lb 2 oz Body Mass Index (BMI) 24.1 Intake and Output for Last 24 Hours 06/23/19 06/24/19 06/25/19 23:59 23:59 23:59 Intake Total 480 / 480 Balance 480 / 480 General: Awake, Alert, Oriented x 3, Cooperative, No Acute Distress HEENT: Atraumatic, Normocephalic, PERRL, EOMI, Sclera Non Icteric Oral: Moist Mucosa Neck: Supple, Good ROM, No JVD Lungs: Clear to auscultation Cardiovascular: Regular Rhythm, Normal S1, Normal S2 Vascular: No Carotid Bruits Abdomen: Bowel Sounds Present, Soft, - - Positive tenderness to palpation: Diffusely Extremities: No edema Neurological: No Focal Motor or Sensory Deficit Psych/Mental Status: Appropriate 06/25/19 02:00: WBC 10.7, RBC 3.91 L, Hgb 12.4, Hct 37.2, MCV 95.1, MCH 31.7, MCHC 33.3, Plt Count 248, MPV 9.8, Immature Gran % (Auto) 0.300, Neut % (Auto) 43.6 L, Lymph % (Auto) 42.3 H, Edwards % (Auto) 8.8, Eos % (Auto) 4.3, Baso % (Auto) 0.7, Absolute Neuts (auto) 4.7, Nucleated RBC % 0 06/25/19 02:00: Sodium 141, Potassium 3.2 L, Chloride 106, Carbon Dioxide 29.0, Anion Gap 6, BUN 7, Creatinine 0.62, Est GFR (MDRD) Af Amer 130, Est GFR (MDRD) Non-Af 108, BUN/Creatinine Ratio 11.3, Glucose 87, Calcium 9.2, Total Bilirubin 0.60, Troponin I < 0.015 06/25/19 07:10: Troponin I < 0.015 06/25/19 07:10: Magnesium 2.0, Triglycerides 232 H, Cholesterol 186, LDL Cholesterol 108, VLDL Cholesterol 46 H, HDL Cholesterol 32 L 06/25/19 11:20: Troponin I < 0.015 Rhythm: Sinus rhythm EKG: As noted above ECHO: 04-30-2018 Left ventricle considered normal with an LVEF 65% Trivial MR Mild TR Mild focal aortic valve thickening Mild PI Estimated RV systolic pressure 23 mmHg No report of decreased diastolic compliance Stress Test: Stress Test Report Date: 06-25-2019 Procedure: Exercise tolerance test/imaging study Indications: Chest pain; CAD; CABG Consent: Per the patient Procedure: The patient exercised on a Juan protocol for 7 minutes and 17 seconds completing Stage I and 1 minute and 17 seconds of Stage II achieving a peak heart rate of 142 bpm (85 % predicted maximal heart rate) with a peak blood pressure 130/88 mmHg and a peak MET capacity of 8 METs. The baseline ECG demonstrated normal sinus rhythm; right bundle branch block pattern. The peak exercise ECG demonstrated no obvious ECG changes. There were no cardiac dysrhythmias pretest, during exercise, or recovery. The functional capacity was considered average. There was planes of shoulder discomfort, nominal discomfort, nausea, back discomfort, and headache. The examination was discontinued secondary to discomfort and dyspnea. Impression: 1. Technically adequate (percent predicted maximal heart rate greater than 85%) exercise tolerance test 2. Peak exercise ECG with no obvious ECG changes 3. There were no cardiac dysrhythmias pretest, during exercise, or recovery 4. Nuclear images pending Myocardial perfusion imaging study: Technique: The patient was injected with 12.0 mCi of technetium 99m Cardiolite and subsequently rest SPECT Cardiolite nuclear imaging was obtained in the horizontal long, vertical long, and short axis views. The patient exercised on a Juan protocol for 7 minutes and 17 seconds completing Stage I and 1 minute and 17 seconds of Stage II achieving a peak heart rate of 142 bpm (84 % predicted maximal heart rate) with a peak blood pressure 130/88 mmHg and a peak MET capacity of 8 METs. The patient was injected with 34.3 mCi of technetium 99m Cardiolite and subsequently stress SPECT Cardiolite nuclear imaging was obtained in the horizontal long, vertical long, and short axis views. A gated Cardiolite study at peak stress was obtained. Interpretation: Rest and stress SPECT Cardiolite nuclear imaging status post realignment, normalization, and attenuation correction, demonstrates the appearance of relative uniform tracer uptake and myocardial perfusion appearing within normal limits. There is end systolic thickening and brightening. The gated Cardiolite study demonstrates myocardial thickening and inward wall motion. The reported LVEF is 75 %. Impression: 1. Rest and stress SPECT Cardiolite nuclear imaging demonstrate relative uniform tracer uptake and myocardial perfusion appearing within normal limits. 2. The gated Cardiolite study reports an LVEF of 75 %. Cardiac Cath: ??2014: [place], [place] Based upon previous medical records available for review it appears she had a previous diagnostic cardiac catheterization which demonstrated: The left ventricle to have anterior and inferior apical hypokinesis with an estimated LVEF 40% The left main coronary artery had mild distal narrowing The LAD had mid 70% stenosis The first diagonal branch had ostial 90% stenosis The second diagonal branch had ostial 60 to 70% stenosis The LCx had ostial OM of 90% stenosis Diffuse mild disease with hazy mid to distal lesion prior to the takeoff of a fairly large PDA branch RCA revealed a distal left to right collateral flow as well as severe proximal to mid disease with a 100% very distal lesion CT Surgery: 05-24-2015: [place], [place] Previously reported as: CONKLIN to the LAD BEKAH to the PDA SVG to the OM Assessment/Plan 1. Chest pain The patient has chest pain although her chest pain appears to be emanating from her abdomen and she has diffuse abdominal pain associated with nausea, emesis, and over time weight loss. Her cardiovascular evaluation thus far has been negative by cardiac enzymes and ECG. She is undergone additional evaluation with exercise tolerance test which was also considered negative for evidence of stress-induced myocardial ischemia. At the present time it does not appear she requires further evaluation with diagnostic cardiac catheterization. She will need to continue cardiovascular risk factor evaluation care and be considered for noncardiac evaluation of her ongoing discomforts. 2. CAD status post CABG The patient has a history of CAD and CABG as previously noted. Again her acute cardiovascular evaluation appears to be unremarkable. She will need to continue cardiovascular medical therapy as deemed appropriate. 3. Hyperlipidemia She will continue risk factor evaluation care as deemed appropriate. 4. Hypertension She will continue medical management with adjustment as deemed appropriate. 5. COPD She will need to continue evaluation care by her primary care physicians. Overall, the present time, does not appear the patient requires further cardiac diagnostic studies/intervention. Based upon her symptoms she may need additional noncardiac evaluation which based upon her concerns of prolonged nausea, emesis, weight loss, abdominal discomfort, may take the need for additional gastroenterology evaluation. At the same time certainly if she has other symptoms from a noncardiac standpoint they can be evaluated and addressed as deemed appropriate by her primary care physicians. Comment: The patient's case has been previously discussed and reviewed with the patient and the [facility] staff team. This note was generated using a voice recognition system and there may be incorrect words, spelling or punctuation that were not noted when reviewing the office note prior to saving.
== END 2019-06-25 11:47 | disposition home or self-care (01) ==
LOC: ED 02:29 → PCU 07:05
PROVIDERS: Admitting Provider Hospitalist; Emergency Provider Emergency Medicine; Visit Provider Hospitalist
DX: R07.81 Pleurodynia (principal); J44.9 Chronic obstructive pulmonary disease, unspecified; R20.2 Paresthesia of skin; R42 Dizziness and giddiness; I25.10 Atherosclerotic heart disease of native coronary artery without angina pectoris; K21.9 Gastro-esophageal reflux disease without esophagitis; F17.210 Nicotine dependence, cigarettes, uncomplicated; M25.511 Pain in right shoulder; I10 Essential (primary) hypertension; E78.5 Hyperlipidemia, unspecified; R91.1 Solitary pulmonary nodule; F41.9 Anxiety disorder, unspecified; I25.2 Old myocardial infarction; Z79.899 Other long term (current) drug therapy; Z79.82 Long term (current) use of aspirin; Z79.51 Long term (current) use of inhaled steroids; Z95.1 Presence of aortocoronary bypass graft; Z86.711 Personal history of pulmonary embolism
CPT/HCPCS: 36415; 71045; 71275; 74174; 78452; 80048; 80053; 80061; 83690; 83735; 84484; 85025; 93005; 93017; 96374; 96375; 96376; 99285; 99406; A9500; Q9967; A4216; J2405; J2785

== ENCOUNTER 2019-11-06 01:52 | Emergency (ER) | payer MEDICAID, SELFPAY ==
[2019-10-30 17:24] VITALS: BMI 24.1
[2019-11-06 01:54] VITALS: BP 141/99; PULSE 84; RESP 18; TEMP 36.7; O2SAT 99; BMI 24.3
[2019-11-06] MEDS: DiphenhydrAMINE 50 MG/ML Syringe 25 MG IV (02:18)
[2019-11-06] MEDS: Ketorolac 15 MG/ML Vial IV (02:18)
[2019-11-06] MEDS: Metoclopramide 10 MG/2 ML Vial IV (02:18)
[2019-11-06] MEDS: 0.9% Normal Saline 1,000 ML 1000 ML IV (02:19)
--- NOTE | 2019-11-06 03:02 | ED.VISSUMM ---
- ER Visit Summary Date of Service: 11/06/19 Chief Complaint: [Left hand pain and headache] History of Present Illness: The patient is a 54 F [presents to the emergency department complaint of left hand pain that she has had for several days. Patient denies any trauma. Patient complains of pain mostly in the left thumb and states that her MCP joint is [id number] because she had x-rays a few years back that showed this. Patient was told she might need surgery on her thumb. Patient also complains of waking up due to the pain in her hand and noting that she had a headache also. Patient described the headache as frontal. Patient has nausea with it and photophobia. Patient has had similar headaches in the past. This is not the worst headache she is ever had. She denies recent head injuries or recent illness. Patient has history of GERD, hypertension, high cholesterol, coronary artery disease, asthma, and COPD.] Physical Examination: [HEENT-PERRLA, EOMI. Cranial nerves II through XII grossly intact. TMs clear. Mucous membranes moist. No adenopathy. Cardiovascular-regular rate and rhythm without murmur or ectopy Lungs-clear to auscultation, chest wall stable without crepitus or subcu emphysema Abdomen-normoactive bowel sounds, soft, nontender, no rebound or rigidity, no peritoneal signs. Neuro ulla-asckhc-tj-nose and heel casillas testing within normal limits, negative Romberg, negative for drift, fundi benign Extremities-intact ?4, normal range of motion, normal pulses, atraumatic. Left hand-patient has tenderness to palpation over the first MCP joint. Patient has pain with flexion extension of the thumb. She is neurovascularly intact distally. No obvious deformity. No erythema or warmth noted.] Test Results: [None indicated] Emergency Department Course and Treatment: [Patient had an IV line established. Patient was medicated with Reglan, Benadryl, and Toradol. Her headache improved significantly and currently rates it a 5 or 6 out of 10. Patient was given a thumb spica splint.] Treatment Plan: [Patient will be given referral to orthopedics regarding her hand. I do not feel any x-rays are indicated that she has had no trauma. I suspect her pain may be related to arthritic changes versus a tendinitis.] Patient will be given a prescription for a few [place] for severe pain. Disposition: [Discharged home in stable condition] Impression: [Cephalgia Left hand pain] This note was generated with X[employer]ion dictation software. It may contain incorrect words, spelling, and punctuation that were not noted in review of the chart prior to signing ED Disposition - Plan for ED Patient: Referrals: Haresh Nunez MD [Primary Care Provider] -
--- NOTE | 2019-11-06 03:05 | ED.DEP ---
ED Disposition - Plan for ED Patient: Instructions: ED Headache Unspecified, Osteoarthritis: Tips for Daily Living Prescriptions: Hydrocodone Bitart/Apap 5-325 [[place] 5MG-325MG] 1 tab PO Q4H PRN PRN 2 Days #10 tab PRN Reason: Pain Prescription Printed Referrals: Haresh Nunez MD [Primary Care Provider] - Porfirio Mann DO [STAFF PHYSICIAN] - 3-5 Days
[2019-11-06 03:34] VITALS: BP 136/88; PULSE 80; RESP 16; O2SAT 97
--- NOTE | 2019-11-06 03:35 | ED.RN ---
PT NONCOMPLIANT WITH WRIST SPLINT. PT RESTING WITH HAND CURLED UP TOWARDS CHEST. ENCOURAGED PT TO WEAR BRACE ESPECIALLY AT NIGHT WHEN SHE FLEXES HER WRIST.
== END 2019-11-06 03:36 | disposition home or self-care (01) ==
LOC: ED 03:34
PROVIDERS: Emergency Provider Emergency Medicine; PCP Internal Medicine
DX: M79.642 Pain in left hand (principal); R51 Headache; I25.10 Atherosclerotic heart disease of native coronary artery without angina pectoris; I10 Essential (primary) hypertension; J44.9 Chronic obstructive pulmonary disease, unspecified; E78.00 Pure hypercholesterolemia, unspecified; K21.9 Gastro-esophageal reflux disease without esophagitis; F41.9 Anxiety disorder, unspecified; Z79.82 Long term (current) use of aspirin; Z79.899 Other long term (current) drug therapy; Z72.0 Tobacco use
CPT/HCPCS: 96361; 96374; 96375; 99285; J7030; A4216

== ENCOUNTER → 2020-01-07 14:32 | Outpatient (CLI) | payer MEDICAID, SELFPAY ==
[2020-01-07 13:22] VITALS: BMI 25.4
--- NOTE | 2020-01-07 14:36 | RAD_ITS ---
HISTORY: PT C/O SOB, COUGH, CONSTANT PAIN IN BACK WITH COUGH, OPEN HEART BYPASS 5 YEARS AGO, TAKES HBP MEDICATION, SMOKER X 35 YEARS ADDITIONAL HISTORY: None provided. COMPARISON: 06/25/2019 EXAMINATION/TECHNIQUE: XR Chest 2 Views Number of images including paperwork: 2 FINDINGS: LUNGS AND PLEURA: No consolidation, mass or pleural effusion. CARDIAC SILHOUETTE: Stable. MEDIASTINUM AND CHU: Stable. UPPER ABDOMEN: Unremarkable. SKELETON AND SOFT TISSUES: No acute findings. OTHER DEVICES AND HARDWARE: Sternal wires and surgical clips. RAD/Chest PA and Lateral IMPRESSION: No acute cardiopulmonary abnormality. at 2226 Reported and signed by: Carlota Mcgregor MD Electronically Signed: Carlota Mcgregor MD at 22:26 EDT Tel , Service support ,
[2020-01-07 15:24] LABS: Absolute Lymphocyte Count 2.68 X10^3/uL (0.83-4.51); Absolute Neutrophil Count 5.4 X10^3/uL (2.0-7.7); Basophil# 0.05 X10^3/uL; Basophil% 0.5 % (0-1); Eosinophil# 0.33 X10^3/uL; Eosinophils% 3.6 % (0-5); Hematocrit 39.4 % (37-47); Hemoglobin 12.8 g/dL (12.0-15.0); Lymphocyte # 2.68 X10^3/ul (4.0); Lymphocyte % 29.1 % (19-41); Mean Corp Hgb Conc 32.5 g/dL (32-36); Mean Corpuscular Hgb 31.2 pg (27.0-32.0); Mean Corpuscular Volume 96.1 fL (81-99); Mean Platelet Vol. 9.5 fl (6.2-12.0); Monocyte# 0.67 X10^3/uL; Monocyte% 7.3 % (0-10); NRBC Flagged by Analyzer 0 % (0-5); Neutrophil # 5.43 X10^3/uL (2.7-7.7); Platelet Count 300 K/mm3 (150-450); RBC Distribution Width CV 11.9 % (11.6-14.6); RBC Distribution Width SD 41.4 fl (35.1-43.9); White Blood Count 9.2 K/mm3 (4.4-11.0)
[2020-01-07 16:02] LABS: Anion Gap 3 (5-15); BUN 4 mg/dL (7-18); BUN/Creat Ratio 9.2 RATIO (10-20); Calcium,Total 9.2 mg/dL (8.5-10.1); Chloride 103 mmol/L (98-107); Creatinine, Serum 0.44 mg/dL (0.55-1.02); EST Glomerular Filtration Rate 161 mL/min (>60); Est Glom Filt Rate - Afr Amer 195 mL/min (>60); Glucose 86 mg/dL (74-106); Potassium 3.8 mmol/L (3.5-5.1); Sodium Level 140 mmol/L (136-145)
[2020-01-07 16:06] LABS: BNP,B-Type NATRIURETIC PEPTIDE 70.8 pg/mL (0-100)
== END ==
PROVIDERS: Internal Medicine Cardiovascular Disease; PCP Internal Medicine; Referring Provider Nurse Practitioner Family; Visit Provider Nurse Practitioner Family
DX: J43.9 Emphysema, unspecified (principal); I25.10 Atherosclerotic heart disease of native coronary artery without angina pectoris; I10 Essential (primary) hypertension; E78.5 Hyperlipidemia, unspecified; Z95.1 Presence of aortocoronary bypass graft; Z72.0 Tobacco use
CPT/HCPCS: 36415; 71046; 80048; 83880; 85025; 87070; 87205

== ENCOUNTER 2020-03-16 22:29 | Emergency (ER) | payer MEDICAID, SELFPAY ==
[2020-01-07 13:22] VITALS: BMI 25.4
[2020-03-16 22:29] VITALS: BP 147/103; PULSE 81; RESP 18; TEMP 36.2; O2SAT 98; BMI 25.3
--- NOTE | 2020-03-16 23:04 | ED.DCSUM_ITS ---
History of Present Illness Chief Complaint: Ear Problem Narrative: Patient presenting for evaluation secondary to ear pain. Patient states that over the course of about the last 24 hours she has had a sudden onset of left ear pain. She reports that it woke her up from sleep last night. Is a continuous sharp pain that is associated with some radiation down the left side of her neck. Patient denies any runny nose, sinus pressure, sore throat, drainage from the ear, or fevers associated with this. Patient states that she has been trying home remedies such as standing over steam and that has not alleviated her pain. Pain is moderate to severe. Patient reports that she has been taking Tylenol ibuprofen and she even found some tramadol at home and that did not alleviate her symptoms. Patient tells me that she has sensitivities to all oral antibiotics, but is able to tolerate azithromycin. Past Medical History - Allergies and Home Meds Allergies/Adverse Reactions: Allergies ketorolac [From Toradol] Allergy (Verified 03/16/20 22:34) Itching oral antibiotics Adverse Reaction (Uncoded 03/16/20 22:34) Upset Stomach Primary Care Physician: Haresh Nunez MD [Primary Care Provider] - Prior records reviewed: Yes Past Medical History: - - Coronary artery disease Surgical History: coronary bypass surgery Lives: With Family Smoking Status: Current every day smoker Review of Systems All systems negative except as indicated General: Denies: Chills, Fever, Sweats Eyes: Denies: Visual changes - bilaterally, Diplopia ENT: Reports: Left ear pain Cardiovascular: Denies: Chest pain, Palpitations Respiratory: Denies: Dyspnea, Cough, Dyspnea on exertion Gastrointestinal: Denies: Abdominal pain, Nausea, Vomiting, Diarrhea, Melena, Hematochezia Genitourinary: Denies: Dysuria, Hematuria, Frequency Musculoskeletal: Denies: Back pain, Extremity Pain Skin: Denies: Rash, Wounds Neurological: Reports: Headache Physical Exam Vital Signs/Narrative: Vital Signs Temp Pulse Resp BP Pulse Ox 03/16/20 22:29 97.2 F L 81 18 147/103 H 98 Inital Vital Signs reviewed: Yes General: Well nourished, Well developed Head: Normocephalic, Atraumatic Eyes: Perrl, EOMI Ears: Normal external canal, - - Right TM is clear. Left TM is partially occluded by cerumen, but the very superior portion of it appears to be beet red. Normal external canal, no pain with manipulation of the tragus. Nose: Normal Inspection, No Rhinorrhea Mouth/Throat: Normal Inspection, No Posterior Erythema Neck: Supple, Nontender, - - Bilateral tonsillar lymphadenopathy is noted Cardiovascular: Regular rate, Regular rhythm, No murmurs Respiratory: No distress, CTA bilaterally, Chest nontender Abdomen: Soft, Nontender, Nondistended, Normal bowel sounds Back: Nontender, Normal Inspection Extremities: Nontender, No edema Skin: Normal color, No rash Neurological: Alert, Oriented x3, Cranial nerves II-XII grossly intact, Normal Strength, Normal Sensation Psychological: Normal affect Diagnostic/Tx/Re-eval - Medical Decision Making Patient presenting for evaluation secondary to ear pain. Patient was evaluated, she seems to have evidence of a left otitis media. She reports that she has sensitivities to all oral antibiotics, but is able to tolerate azithromycin for what ever reason. Patient will be started on this. Patient was given [place] in the emergency department. She also will be given Debrox as she has a significant amount of earwax in that left ear. Patient was recommended to follow-up with primary care. ED Disposition - Plan for ED Patient: Disposition: Home or Assisted Living Diagnosis: Left otitis media Instructions: ED Otitis Media Antibiotic Treatment Adult Prescriptions: Hydrocodone Bitart/Apap 5-325 [[place] 5MG-325MG] 1 tab PO Q6H PRN PRN 3 Days #12 tab PRN Reason: Pain Prescription Printed Azithromycin [Zithromax] 250 mg PO DAILY #4 tab Prescription Printed Referrals: Haresh Nunez MD [Primary Care Provider] - 3-5 Days if not improving
[2020-03-16] MEDS: HYDROcodone Bitartrate/Apap 5/325 Tablet PO (23:20)
[2020-03-16] MEDS: Azithromycin 250 MG Tablet 500 MG PO (23:20)
[2020-03-16] MEDS: Carbamide Peroxide 15 ML Bottle 5 DRP OTIC (23:21)
[2020-03-16] MEDS: DiphenhydrAMINE 25 MG Capsule PO (23:33)
[2020-03-16 23:36] VITALS: BP 145/90; PULSE 80; RESP 16; O2SAT 97
== END 2020-03-16 23:37 | disposition home or self-care (01) ==
LOC: ED 23:17
PROVIDERS: Emergency Provider Emergency Medicine; PCP Internal Medicine
DX: H66.92 Otitis media, unspecified, left ear (principal); I25.10 Atherosclerotic heart disease of native coronary artery without angina pectoris; F17.200 Nicotine dependence, unspecified, uncomplicated; Z95.1 Presence of aortocoronary bypass graft; Z79.82 Long term (current) use of aspirin
CPT/HCPCS: 96374; 99281; 99284

== ENCOUNTER 2020-03-30 22:29 | Emergency (ER) | payer MEDICAID, SELFPAY ==
[2020-03-30 22:30] VITALS: BP 122/75; PULSE 85; RESP 18; TEMP 36.8; O2SAT 100; BMI 24.6
--- NOTE | 2020-03-30 23:05 | ED.DCSUM_ITS ---
History of Present Illness Chief Complaint: Ear Problem Informant: Patient Onset: Weeks - 2 Timing: Continuous Quality: ache Location: left ear, w/ radiation to areas around it Current Severity: Severe Maximum Severity: Severe Worsened by: - - touching it Relieved by: - - temporarily improved after z-pack, now worse Associated Symptoms: - - no fevers/chills. Negative for: Nasal Congestion, Headache, Nausea, Vomiting, Diarrhea, Shortness of Breath, Chest Pain Narrative: Patient was seen here about 2 weeks ago and had antibiotics for what was diagnosed as left otitis media, she states she temporarily got better but now is much worse and it never really went away. She was given Debrox drops, she has done some irrigation which is not really helping and really hurts to do. She has also irrigated with alcohol at times. - Past Medical History (1) Asthma Status: Chronic (2) Atherosclerotic heart disease of [place] coronary artery without angina pectoris Status: Chronic (3) COPD (chronic obstructive pulmonary disease) Status: Chronic (4) Essential hypertension Status: Chronic (5) GERD (gastroesophageal reflux disease) Status: Chronic (6) Generalized anxiety disorder Status: Chronic (7) Hyperlipemia Status: Chronic Past Medical History - Allergies and Home Meds Allergies/Adverse Reactions: Allergies ketorolac [From Toradol] Allergy (Verified 03/30/20 22:31) Itching oral antibiotics Adverse Reaction (Uncoded 03/16/20 22:34) Upset Stomach Primary Care Physician: Haresh Nunez MD [Primary Care Provider] - Surgical History: coronary bypass surgery Smoking Status: Current every day smoker Review of Systems General: Denies: Chills, Fever, Sweats Eyes: Denies: Visual changes - bilaterally, Diplopia ENT: Reports: Left ear pain - With radiation to the surrounding areas around the left ear including the jaw. Denies: Rhinorrhea, Sore throat Cardiovascular: Denies: Chest pain, Palpitations Respiratory: Denies: Dyspnea, Cough Gastrointestinal: Denies: Nausea, Vomiting, Diarrhea Skin: Denies: Rash, Wounds Neurological: Reports: Headache. Denies: Weakness, Numbness Physical Exam Vital Signs/Narrative: Vital Signs Temp Pulse Resp BP Pulse Ox 03/30/20 22:30 98.2 F 85 18 122/75 H 100 Inital Vital Signs reviewed: Yes General: Well nourished, Well developed, - - NAD Head: Normocephalic, Atraumatic Eyes: Perrl, EOMI Ears: Pain with Movement of Left Tragus - And all parts of the pinna. External auditory canal is mildly swollen, mildly erythematous, there is no abscess or pustule, and all of it is extremely tender., - - There is cerumen within the left EAC, none of the in the panic membrane is visible.. Negative for: Right Mastoid Tenderness, Left Mastoid Tenderness - And without erythema/swelling Nose: Normal Inspection, No Rhinorrhea Mouth/Throat: Normal Inspection, No Posterior Erythema Neck: Supple, Nontender, No Lymphadenopathy Respiratory: No distress Skin: Normal color, No rash, No Trauma Neurological: Alert, Oriented x3, Cranial nerves II-XII grossly intact, Normal Strength, Normal Sensation, Normal Gait Psychological: - - Anxious Diagnostic/Tx/Re-eval - Medical Decision Making Patient was amenable to trying to remove the cerumen, which I attempted with a purple cerumen remover. I removed a small amount, it was uncomfortable, with further attempts she began physically withdrawing, at which point I told her we should stop because it no longer is safe to do so. I think she more likely has otitis externa, unknown if she has otitis media again or not. At this time I will put her on Cortisporin drops we gave her here she was given a [place] as well for tonight, and advised to follow-up with otolaryngology if this does not help. She does not need an ear wick right now, the canal is open. ED Disposition - Plan for ED Patient: Disposition: Home or Assisted Living Diagnosis: Left otitis externa Instructions: ED Otitis Externa Referrals: Scotty Payton MD [STAFF PHYSICIAN] - 1 Week if not improving Additional Instructions: For eardrops 4 times daily for at least 1 week or until better. After putting the drops in her ear, lie on your opposite ear for 10 minutes.
[2020-03-30] MEDS: HYDROcodone Bitartrate/Apap 5/325 Tablet PO (23:19)
[2020-03-30] MEDS: Neomycin Sulfate/Polymyxin/Hc Susp 10 ML Bottle 4 DRP OTIC (23:19)
== END 2020-03-30 23:30 | disposition home or self-care (01) ==
PROVIDERS: Emergency Provider Emergency Medicine; PCP Internal Medicine
DX: H60.92 Unspecified otitis externa, left ear (principal); F17.200 Nicotine dependence, unspecified, uncomplicated; E78.5 Hyperlipidemia, unspecified; I10 Essential (primary) hypertension; K21.9 Gastro-esophageal reflux disease without esophagitis; J44.9 Chronic obstructive pulmonary disease, unspecified; I25.10 Atherosclerotic heart disease of native coronary artery without angina pectoris; Z95.1 Presence of aortocoronary bypass graft; Z79.82 Long term (current) use of aspirin; Z79.899 Other long term (current) drug therapy
CPT/HCPCS: 99281

== ENCOUNTER 2020-07-20 17:09 | Emergency (ER) | payer MEDICAID, SELFPAY ==
[2020-07-20 17:10] VITALS: BP 150/104; PULSE 89; RESP 14; TEMP 36.4; O2SAT 100; BMI 23.8
--- NOTE | 2020-07-20 17:25 | CT_ITS ---
STUDY: CT ABDOMEN AND PELVIS WITHOUT CONTRAST REASON FOR EXAM: Female, 55 years old. DIFFUSE PAIN, VOMITING, CONSTIPATION, PAIN W/ URINATION RADIATION DOSAGE (If Supplied By Facility): CTDIvol = ( 8.65 ) mGy, DLP = ( 411.11 ) mGycm TECHNIQUE: Transaxial images were obtained from the dome of the diaphragm to the symphysis pubis without oral contrast, and without intravenous contrast. Sagittal and coronal images were reconstructed. Individualized dose optimization techniques were used for this CT. COMPARISON: None. FINDINGS: The visualized lung bases are unremarkable. The visualized portions of the heart are within normal limits. Normal liver. Normal gallbladder and extrahepatic biliary system. Normal spleen. Normal pancreas. Normal bilateral adrenal glands. Normal right kidney. 2 cm cyst in the lower pole the left kidney. Normal visualized stomach. Normal small intestine. Normal colon. The appendix is visualized and appears normal. There is diffuse atherosclerotic calcification of the abdominal aorta, without a demonstrated aneurysm. Normal inferior vena cava. Normal retroperitoneum. Normal urinary bladder. Normal abdominal wall. Normal osseous structures. CT/Abdomen/Pelvis without Cont IMPRESSION: No acute abnormality. Electronically Signed: Bautista Damon MD at 19:03 EST Tel , Service support ,
--- NOTE | 2020-07-20 17:25 | EKG12_ITS ---
Test Reason : ABD PAIN Blood Pressure : / mmHG Vent. Rate : 082 BPM Atrial Rate : 082 BPM P-R Int : 172 ms QRS Dur : 136 ms QT Int : 416 ms P-R-T Axes : 054 -33 035 degrees QTc Int : 486 ms Normal sinus rhythm Left axis deviation Right bundle branch block Inferior infarct age undetermined, cannot be excluded Abnormal ECG Confirmed by CHYNA ENCISO, LEILA ([id number]), design editor EBONIE STEEN ([id number]) on 07/23/2020 1:38:24 PM Referred By: SHADY Confirmed By:LEILA CLEMENTE MD
--- NOTE | 2020-07-20 17:49 | ED.DCSUM_ITS ---
- ER Visit Summary Date of Service: 07/20/20 Chief Complaint: Abdominal pain History of Present Illness: The patient is a [address] Nunez and Dr. Mcgregor. She reports that she has abdominal pain again at 5:00 yesterday morning. She describes as a cramping, burning, stabbing pain is 10 of 10 sev erity. Is worsened by movement is and relieved by nothing. Reports has been nausea and vomited 20 times. No blood in her emesis. She does state that she feels bloated. Her last bowel was 4 days ago. Typically she goes daily. Patient also complains of dysuria and frequency for the past 4 days. She is having small volumes of urine. On review of systems patient planes of chills. She has a cough productive of brown sputum for 10 years, but it has increased lately. She feels mildly short of breath. She has left upper back pain and a headache. She denies sick contacts. She does wear a mask. Physical Examination: Vitals: Stable. Afebrile. General: Well-nourished and well-developed. Head: Normocephalic atraumatic. Neck: Supple, no lymphadenopathy. No JVD. Nontender. Cardiovascular: Regular rate and rhythm. No murmurs. Respiratory: No respiratory distress. Clear to auscultation bilaterally. Abdominal: Soft, moderate diffuse tenderness to palpation, nondistended, normal bowel sounds. No guarding, rebound, or peritoneal signs. Back: Mild tenderness palpation over the left trapezius muscle and just medial to her left scapula that does reproduce her pain. Extremities: Nontender, no edema. Skin: Normal color, no rash. Neurologic: Alert and oriented ?3. Cranial nerves II through XII are intact. Normal strength and sensation. Psych: Normal affect. Test Results: EKG is sinus at 82 with a right bundle branch block. Is unchanged from June 252019. CBC shows an H&H of 11.9 and 35.6. Chem-7 shows a BUN of 6 and creatinine 0.46. LFTs show an AST of 8. Lipase is 112. UA is negative. Troponin is negative. COVID-19 is negative. Clinical Impression(s) from Imaging Studies Abdomen/Pelvis CT 07/20/20 17:25 IMPRESSION: No acute abnormality. Electronically Signed: Bautista Damon MD at 19:03 EST Tel , Service support , Chest X-Ray 07/20/20 18:00 IMPRESSION: No active disease. Electronically Signed: Bautista Damon MD at 18:41 EST Tel , Service support , Emergency Department Course and Treatment: Patient had an IV placed. She was given morphine and Zofran IV. She is resting comfortably. Treatment Plan: Patient reports she has not had a bowel movement for 4 days. I do not think placing her on opiate-based pain medications at home is in her best interest. She will be discharged with magnesium citrate and Zofran. Instructed to follow-up with her primary care physician in 1 to 2 days if not improving. Return to the emergency department for any worsening symptoms. Disposition: To home in improved and stable condition. Impression: 1. Abdominal pain, uncertain cause. 2. URI. This note was generated with [facility] [employer] dictation software. It may contain incorrect words, spelling, and punctuation that were not noted in review of the chart prior to signing ED Disposition - Plan for ED Patient: Instructions: ED Abdominal Pain Unkn Cause Fem Prescriptions: Magnesium Citrate [Citrate Of Magnesia] 300 ml PO X1 #1 bottle Ondansetron [Zofran Odt] 4 mg PO Q8H PRN PRN #10 tablet PRN Reason: Nausea Referrals: Haresh Nunez MD [Primary Care Provider] - 1-2 Days if not improving
[2020-07-20] MEDS: Ondansetron 4 MG/2 ML Vial IV (17:51)
[2020-07-20] MEDS: 0.9% Normal Saline 1,000 ML 1000 ML IV (17:51)
[2020-07-20] MEDS: Morphine 4 MG/ML Syringe IV ×2 (17:51→19:17)
[2020-07-20 17:56] LABS: Bacteria 0 SEEN /hpf (None Seen); Mucous, Urine 0 SEEN /hpf (<or=2+); White Blood Cells 0 SEEN /hpf (0-5)
[2020-07-20 17:57] LABS: Color, Urine Straw (Yellow); Glucose, Dipstick Normal (Normal); Ketone-Dipstick Negative (Negative); Leukocyte Esterase-Dipstick Negative /ul (Negative); Nitrite-Dipstick Negative (Negative); Occult Blood-Urine 10 /ul (Negative); Protein-Dipstick Negative (Negative); Specific Gravity, Urine 1.005 (1.002-1.030); Urine Bilirubin Dipstick Negative (Negative); Urine Clarity Clear (Clear); Urine Urobilinogen Normal (Normal)
--- NOTE | 2020-07-20 18:00 | RAD_ITS ---
STUDY: X-RAY CHEST REASON FOR EXAM: Female, 55 years old. pt awoken yesterday at 0500 with horrible upper abdominal pain and vomitting and left shoulder pain. pt also had pain with urination and right back pain last week. pt also states she is constipated and has increased bloating -- HX OF CAD, HTN, AL, CABG, ASTHMA, COPD TECHNIQUE: Single AP portable view of the chest. COMPARISON: 01/07/2020 FINDINGS: Status post median sternotomy. The lungs are clear and expanded. There is no demonstrated pleural abnormality. Normal size heart. Normal mediastinum and mario. Normal visualized pulmonary arteries. Normal visualized aortic arch and descending thoracic aorta. Normal visualized thoracic spine. Normal visualized ribs, clavicles, and shoulders. There is no demonstrated abnormality of the visualized soft tissue structures of the upper abdomen. RAD/Chest 1 View (Portable) IMPRESSION: No active disease. Electronically Signed: Bautista Damon MD at 18:41 EST Tel , Service support ,
[2020-07-20 18:03] LABS: Absolute Lymphocyte Count 2.73 X10^3/uL (0.83-4.51); Absolute Neutrophil Count 4.9 X10^3/uL (2.0-7.7); Basophil# 0.05 X10^3/uL; Basophil% 0.6 % (0-1); Eosinophils% 3.4 % (0-5); Hematocrit 35.6 % (37-47); Hemoglobin 11.9 g/dL (12.0-15.0); Lymphocyte # 2.73 X10^3/ul (4.0); Mean Corp Hgb Conc 33.4 g/dL (32-36); Mean Corpuscular Hgb 31.9 pg (27.0-32.0); Mean Corpuscular Volume 95.4 fL (81-99); Mean Platelet Vol. 9.4 fl (6.2-12.0); Monocyte# 0.84 X10^3/uL; Monocyte% 9.5 % (0-10); NRBC Flagged by Analyzer 0 % (0-5); Neutrophil # 4.85 X10^3/uL (2.7-7.7); Platelet Count 304 K/mm3 (150-450); RBC Distribution Width CV 11.7 % (11.6-14.6); RBC Distribution Width SD 40.8 fl (35.1-43.9); Red Blood Count 3.73 M/mm3 (4.2-5.4); White Blood Count 8.8 K/mm3 (4.4-11.0)
[2020-07-20 18:09] LABS: Red Blood Cells-Urine 0-5 SEEN /hpf (0-5); Squamous Epithelial Cells - UA 0-5 SEEN /hpf (5-10)
[2020-07-20 18:21] LABS: ALB/GLOB Ratio 0.9 RATIO (0.9-2.4); AST(SGOT) 8 U/L (15-37); Alanine Aminotransfer ALT/SGPT 15 U/L (13-56); Albumin, Serum 3.7 g/dL (3.2-5.0); Alkaline Phosphatase 83 U/L (45-117); Anion Gap 4 (5-15); BUN 6 mg/dL (7-18); Calcium,Total 9.1 mg/dL (8.5-10.1); Chloride 105 mmol/L (98-107); Creatinine, Serum 0.46 mg/dL (0.55-1.02); EST Glomerular Filtration Rate 150 mL/min (>60); Est Glom Filt Rate - Afr Amer 182 mL/min (>60); Estimated Creatinine Clearance 127.27 ml/min; Globulin 3.9 g/dL (2.2-4.2); Glucose 86 mg/dL (74-106); Lipase 112 U/L (73-393); Potassium 3.7 mmol/L (3.5-5.1); Protein, Total 7.6 g/dL (6.4-8.2); Sodium Level 140 mmol/L (136-145)
[2020-07-20 19:21] VITALS: BP 145/85; PULSE 80; RESP 18; O2SAT 98
== END 2020-07-20 19:38 | disposition home or self-care (01) ==
LOC: ED 18:35
PROVIDERS: Emergency Provider Emergency Medicine; PCP Internal Medicine
DX: R10.9 Unspecified abdominal pain (principal); J06.9 Acute upper respiratory infection, unspecified; R30.0 Dysuria; I25.10 Atherosclerotic heart disease of native coronary artery without angina pectoris; I10 Essential (primary) hypertension; J44.9 Chronic obstructive pulmonary disease, unspecified; Z79.82 Long term (current) use of aspirin; Z79.899 Other long term (current) drug therapy; Z72.0 Tobacco use
CPT/HCPCS: 71045; 74176; 80053; 81001; 83690; 84484; 85025; 87426; 93005; 96361; 96374; 96375; 96376; 99285; J7030; A4216; J2405

== ENCOUNTER 2020-09-23 23:10 | Emergency (ER) | payer MEDICAID, SELFPAY ==
[2020-09-23 23:11] VITALS: BP 164/97; PULSE 97; RESP 18; TEMP 36.4; O2SAT 97; BMI 25.0
--- NOTE | 2020-09-23 23:28 | EKG12_ITS ---
Test Reason : COUGH Blood Pressure : / mmHG Vent. Rate : 088 BPM Atrial Rate : 088 BPM P-R Int : 160 ms QRS Dur : 132 ms QT Int : 410 ms P-R-T Axes : 057 -27 047 degrees QTc Int : 496 ms Normal sinus rhythm Right bundle branch block Inferior infarct , age undetermined Abnormal ECG Confirmed by MICHELLE ENCISO, ALETA ([id number]), news editor GET FERRER ([id number]) on 09/25/2020 8:18:36 AM Referred By: LETICIA Confirmed By:PRAVEEN MARTINEZ MD
[2020-09-23 23:33] VITALS: PULSE 93; RESP 16; O2SAT 98
[2020-09-23 23:34] VITALS: O2SAT 98
[2020-09-23 23:43] LABS: Absolute Lymphocyte Count 3.79 X10^3/uL (0.83-4.51); Absolute Neutrophil Count 5.3 X10^3/uL (2.0-7.7); Basophil# 0.06 X10^3/uL; Basophil% 0.6 % (0-1); Eosinophil# 0.27 X10^3/uL; Eosinophils% 2.6 % (0-5); Hematocrit 36.8 % (37-47); Hemoglobin 12.2 g/dL (12.0-15.0); Lymphocyte # 3.79 X10^3/ul (0.83-4.51); Lymphocyte % 36.1 % (19-41); Mean Corp Hgb Conc 33.2 g/dL (32-36); Mean Corpuscular Hgb 31.4 pg (27.0-32.0); Mean Corpuscular Volume 94.6 fL (81-99); Mean Platelet Vol. 9.4 fl (6.2-12.0); Monocyte# 1.03 X10^3/uL; Monocyte% 9.8 % (0-10); NRBC Flagged by Analyzer 0 % (0-5); Neutrophil # 5.29 X10^3/uL (2.7-7.7); Neutrophil % 50.4 % (47-70); Platelet Count 302 K/mm3 (150-450); RBC Distribution Width CV 11.9 % (11.6-14.6); RBC Distribution Width SD 40.8 fl (35.1-43.9); Red Blood Count 3.89 M/mm3 (4.2-5.4); White Blood Count 10.5 K/mm3 (4.4-11.0)
[2020-09-23 23:47] VITALS: PULSE 83; RESP 20
[2020-09-23] MEDS: Ipratropium/Albuterol Sulfate 3 ML AMPUL.NEB INHALATION (23:47)
--- NOTE | 2020-09-23 23:58 | ED.DCSUM_ITS ---
History of Present Illness Chief Complaint: Cough Informant: Patient Narrative: 55-year-old female presents with concern for cough, shortness of breath, chest pain. States is been present over the past 1 day. States that she had a significant cough for 5 weeks. States that she was diagnosed with bronchitis. States that she has a brownish sputum production. Denies any fever or chills. Having pain in the left-sided chest which she describes as sharp and intermittent since yesterday. States that it is worse with movement. Denies any nausea, vomiting, diaphoresis. Patient is a current smoker. Past Medical History - Allergies and Home Meds Allergies/Adverse Reactions: Allergies ketorolac [From Toradol] Allergy (Verified 09/23/20 23:13) Itching oral antibiotics Adverse Reaction (Uncoded 09/23/20 23:13) Upset Stomach Primary Care Physician: Haresh Nunez MD [Primary Care Provider] - Prior records reviewed: Yes Past Medical History: - - CAD, HTN Surgical History: coronary bypass surgery Lives: Spouse/ Significant Other Smoking Status: Current every day smoker Alcohol: None Drugs: None Review of Systems General: Denies: Chills, Fever, Sweats Eyes: Denies: Visual changes - bilaterally, Diplopia ENT: Denies: Rhinorrhea, Sore throat Cardiovascular: Reports: Chest pain. Denies: Palpitations Respiratory: Reports: Dyspnea, Cough, Sputum. Denies: Dyspnea on exertion Gastrointestinal: Denies: Abdominal pain, Nausea, Vomiting, Diarrhea, Melena, Hematochezia Genitourinary: Denies: Dysuria, Hematuria, Frequency Musculoskeletal: Denies: Back pain, Extremity Pain Skin: Denies: Rash, Wounds Neurological: Denies: Headache, Weakness, Numbness Physical Exam Vital Signs/Narrative: Vital Signs Temp Pulse Resp BP Pulse Ox 09/23/20 23:47 83 20 H 09/23/20 23:33 93 16 98 09/23/20 23:11 97.6 F L 97 18 164/97 H 97 Inital Vital Signs reviewed: Yes General: Well nourished, Well developed, No Acute Distress Head: Normocephalic, Atraumatic Eyes: Perrl, EOMI ENT: Moist mucous membranes, No rhinorrhea Neck: Supple, Nontender Cardiovascular: Regular rate, Regular rhythm, No murmurs Respiratory: No distress, Chest nontender, - - Coarse breath sounds bilaterally. Abdomen: Soft, Nontender, Nondistended, Normal bowel sounds Back: Nontender, Normal Inspection Extremities: Nontender, No edema Skin: Normal color, No rash Neurological: Alert, Oriented x3, Cranial nerves II-XII grossly intact, Normal Strength, Normal Sensation Psychological: Normal affect, Normal Mood Diagnostic/Tx/Re-eval Clinical Impression(s) from Imaging Studies Chest CTA 09/24/20 00:05 IMPRESSION: Normal CTA chest examination, without a demonstrated pulmonary embolism or arterial dissection. COPD with mild emphysema. No acute airspace disease. Electronically Signed: Frank Lawrence DO at 0:59 EDT Tel , Service support , Laboratory Data 09/23/20 09/23/20 23:30 23:30 WBC 10.5 RBC 3.89 L Hgb 12.2 Hct 36.8 L MCV 94.6 MCH 31.4 MCHC 33.2 RDW Std Deviation 40.8 RDW Coeff of Louie 11.9 Plt Count 302 MPV 9.4 Immature Gran % (Auto) 0.500 Neut % (Auto) 50.4 Lymph % (Auto) 36.1 [place] % (Auto) 9.8 Eos % (Auto) 2.6 Baso % (Auto) 0.6 Absolute Neuts (auto) 5.3 Absolute Lymphs (auto) 3.79 Nucleated RBC % 0 Sodium 139 Potassium 3.6 Chloride 103 Carbon Dioxide 30.0 Anion Gap 6 BUN 6 L Creatinine 0.54 L Estim Creat Clear Calc 108.41 Est GFR (MDRD) Af Amer 152 Est GFR (MDRD) Non-Af 126 BUN/Creatinine Ratio 11.2 Glucose 92 Calcium 9.3 Troponin I < 0.015 - Rhythm Strip Rhythm Strip: Sinus Rhythm Rate: 88 Ectopy: None - EKG Initial EKG Interpretation: Sinus Rhythm - Normal sinus rhythm at 88 bpm. AR interval of 160 ms. QTC of 496 ms. Right bundle branch block. - Medical Decision Making Patient appears well and nontoxic. Vital signs within normal limits. No hypoxemia. Lungs coarse bilaterally. Given the patient's point tenderness in her left ribs CTA was done to rule out pulmonary embolism. No evidence of pulmonary embolism or infiltrate. Patient's lab work is within normal limits including a negative troponin. Nonischemic EKG. Given the constant nature of the patient's pain I feel this effectively rules her out for ACS. The patient's productive sputum as well as persistent cough is likely result of her COPD with exacerbation. Patient be started on doxycycline as well as prednisone. Following the CT patient did have some redness to her arms for which she was given Benadryl which immediately resolved this reaction. Patient will be advised to follow-up with her primary care provider as well as developing machine tender. Stable at time of discharge. Impression: 1. COPD exacerbation 2. Atypical chest pain ED Disposition - Plan for ED Patient: Disposition: Home or Assisted Living Instructions: ED COPD Flare Prescriptions: Prednisone [Deltasone] 40 mg PO DAILY #10 tablet Prescription Printed Doxycycline 100 mg PO BID #14 capsule Prescription Printed Referrals: Haresh Nunez MD [Primary Care Provider] - 2 Days
--- NOTE | 2020-09-24 00:05 | CT_ITS ---
STUDY: CTA CHEST REASON FOR EXAM: Female, 55 years old. dyspnea RADIATION DOSAGE (If Supplied By Facility): CTDIvol = ( 13.89 ) mGy, DLP = ( 486.89 ) mGycm TECHNIQUE: The examination was performed with the intravenous administration of IV 75mL Isovue-370. Post-processing of the angiographic images was performed, with multiplanar reformation and 3D reconstruction. Individualized dose optimization techniques were used for this CT. COMPARISON: None. FINDINGS: Normal enhancement of the main pulmonary artery and right and left pulmonary arteries. Normal enhancement of the bilateral peripheral pulmonary arteries. There is no demonstrated pulmonary embolism. Normal thoracic aorta and visualized great vessels. There is no demonstrated aortic dissection. Normal heart and pericardium. Normal mediastinum. Normal hilar regions. Normal visualized trachea and bronchi. The lungs are hyper expanded, with flattening of the hemidiaphragms. Mild emphysematous changes in the upper lobes. Normal pulmonary parenchyma. Normal pleura. Normal chest wall structures. Normal osseous structures. Normal visualized upper abdomen. CT/CTA Chest W/WO Contrast IMPRESSION: Normal CTA chest examination, without a demonstrated pulmonary embolism or arterial dissection. COPD with mild emphysema. No acute airspace disease. Electronically Signed: Frank Lawrence DO at 0:59 EDT Tel , Service support ,
[2020-09-24 00:19] LABS: Anion Gap 6 (5-15); BUN 6 mg/dL (7-18); BUN/Creat Ratio 11.2 RATIO (10-20); Calcium,Total 9.3 mg/dL (8.5-10.1); Chloride 103 mmol/L (98-107); Creatinine, Serum 0.54 mg/dL (0.55-1.02); EST Glomerular Filtration Rate 126 mL/min (>60); Est Glom Filt Rate - Afr Amer 152 mL/min (>60); Estimated Creatinine Clearance 108.41 ml/min; Glucose 92 mg/dL (74-106); Potassium 3.6 mmol/L (3.5-5.1); Sodium Level 139 mmol/L (136-145)
[2020-09-24] MEDS: DiphenhydrAMINE 50 MG/ML Syringe 25 MG IV (01:09)
[2020-09-24] MEDS: Lidocaine 5% Patch 1 PATCH TOPICAL (01:11)
[2020-09-24 01:15] VITALS: BP 145/96; PULSE 84; RESP 16; O2SAT 98
[2020-09-24] MEDS: Doxycycline 100 MG CAPSULE PO (01:15)
[2020-09-24 02:09] VITALS: PULSE 82; RESP 16; O2SAT 97
== END 2020-09-24 02:11 | disposition home or self-care (01) ==
PROVIDERS: Emergency Provider Emergency Medicine; PCP Internal Medicine
DX: J44.1 Chronic obstructive pulmonary disease with (acute) exacerbation (principal); R07.89 Other chest pain; I45.10 Unspecified right bundle-branch block; I25.10 Atherosclerotic heart disease of native coronary artery without angina pectoris; I10 Essential (primary) hypertension; F17.200 Nicotine dependence, unspecified, uncomplicated; Z79.82 Long term (current) use of aspirin; Z79.899 Other long term (current) drug therapy
CPT/HCPCS: 71275; 80048; 84484; 85025; 93005; 94640; 96374; 99285; Q9967; A4216

== ENCOUNTER 2021-02-01 17:04 | Outpatient (CLI) | payer MEDICAID, SELFPAY ==
[2021-02-01 17:12] VITALS: BP 105/81; PULSE 95; RESP 20; TEMP 36.9; O2SAT 97; BMI 23.3
[2021-02-01] MEDS: 0.9% Saline Lock 10 ML Syringe IV (17:28)
[2021-02-01 18:04] VITALS: BP 134/85; PULSE 68; RESP 18; TEMP 36.8; O2SAT 98
[2021-02-01 19:04] VITALS: BP 130/93; PULSE 73; RESP 18; TEMP 36.8; O2SAT 96
== END 2021-02-01 19:11 | disposition home or self-care (01) ==
LOC: ICUOUT 17:04 → MS2 17:05
PROVIDERS: PCP Internal Medicine; Referring Provider Nurse Practitioner Acute Care; Visit Provider Nurse Practitioner Acute Care
DX: Z23 Encounter for immunization (principal); U07.1 COVID-19
CPT/HCPCS: J7050; M0243; A4216; Q0244

== ENCOUNTER 2021-03-16 20:12 | Emergency (ER) | payer MEDICAID, SELFPAY ==
[2021-03-16 20:13] VITALS: BP 121/80; PULSE 90; RESP 18; TEMP 36.5; O2SAT 96; BMI 25.7
[2021-03-16 21:10] LABS: Absolute Lymphocyte Count 3.38 X10^3/uL (0.83-4.51); Absolute Neutrophil Count 5.8 X10^3/uL (2.0-7.7); Basophil# 0.09 X10^3/uL; Basophil% 0.8 % (0-1); Eosinophil# 0.35 X10^3/uL; Eosinophils% 3.3 % (0-5); Hematocrit 38.4 % (37-47); Hemoglobin 12.9 g/dL (12.0-15.0); Lymphocyte # 3.38 X10^3/ul (0.83-4.51); Lymphocyte % 31.4 % (19-41); Mean Corp Hgb Conc 33.6 g/dL (32-36); Mean Corpuscular Hgb 31.6 pg (27.0-32.0); Mean Corpuscular Volume 94.1 fL (81-99); Mean Platelet Vol. 9.1 fl (6.2-12.0); Monocyte# 1.02 X10^3/uL; Monocyte% 9.5 % (0-10); NRBC Flagged by Analyzer 0 % (0-5); Platelet Count 331 K/mm3 (150-450); RBC Distribution Width CV 11.9 % (11.6-14.6); RBC Distribution Width SD 41.4 fl (35.1-43.9); Red Blood Count 4.08 M/mm3 (4.2-5.4); White Blood Count 10.8 K/mm3 (4.4-11.0)
--- NOTE | 2021-03-16 21:10 | RAD_ITS ---
INDICATION: chronic cough EXAMINATION/TECHNIQUE: X-RAY - XR Chest 2 Views COMPARISON: 07/20/2020 chest x-ray FINDINGS: LINES/DEVICES: None. Sternotomy wires are present. Thin wires posterior and inferior to the sternum are again seen, unchanged compared to prior exam. LUNGS: Symmetric normal lung volumes. No airspace opacity or abnormal interstitial pattern. No nodule or mass. No pleural effusion or pneumothorax. MEDIASTINUM AND CARDIOVASCULAR STRUCTURES: Normal size and contour of the cardiomediastinal silhouette. No evidence of pulmonary vascular congestion. BONES AND SOFT TISSUES: No abnormality within limits of the exam. RAD/Chest PA and Lateral IMPRESSION: 1. No radiographic evidence of acute cardiopulmonary disease. Electronically Signed: Justin Chiu DO at 22:53 EDT Tel , Service support ,
[2021-03-16 21:27] LABS: ALB/GLOB Ratio 0.9 RATIO (0.9-2.4); AST(SGOT) 10 U/L (15-37); Alanine Aminotransfer ALT/SGPT 16 U/L (13-56); Albumin, Serum 3.5 g/dL (3.2-5.0); Alkaline Phosphatase 86 U/L (45-117); Anion Gap 6 (5-15); BUN 5 mg/dL (7-18); BUN/Creat Ratio 8.5 RATIO (10-20); Chloride 101 mmol/L (98-107); Creatinine, Serum 0.59 mg/dL (0.55-1.02); EST Glomerular Filtration Rate 114 mL/min (>60); Est Glom Filt Rate - Afr Amer 138 mL/min (>60); Estimated Creatinine Clearance 99.23 ml/min; Globulin 4.1 g/dL (2.2-4.2); Glucose 88 mg/dL (74-106); Protein, Total 7.6 g/dL (6.4-8.2); Sodium Level 140 mmol/L (136-145); Uric Acid 3.5 mg/dL (2.6-6.0)
--- NOTE | 2021-03-16 21:45 | EDS_ITS ---
HPI History of Present Illness Chief Complaint: Upper Extremity Injury Informant: patient Narrative Narrative: Patient presents with multiple complaints. Her main complaint is that for the past 3 days her right hand has been so painful that she cannot move it. She complains of pain in all of the metacarpophalangeal joints as well as the CMCJ. She does not have difficulty moving the wrist as much, nor the elbow but they are a little stiff as well. She has a history of rheumatoid arthritis and psoriatic arthritis and osteoarthritis and states it has never given her this much pain or problem in her hand before. She denies any fevers or chills. Otherwise, she states she had Covid, she was not vaccinated, she started getting symptoms in the middle of January almost 2 months ago from now, and she did have the monoclonal antibody infusion therapy. She was not hospitalized and did not require oxygen, nor was she diagnosed with Covid pneumonia after she had a chest x-ray at one point. However, she states there are many symptoms that have persisted and she has not gotten over. Nausea when she eats, she has a low/decreased appetite, persistent cough without dyspnea, malaise and fatigue, and brain fog. As a result of all this, she try to make an appointment with her doctor and apparently missed the appointment, and she states that her doctor recommended she come in and get some blood tests. [facility] Medical History AC (acromioclavicular) joint bone spurs Acute exacerbation of chronic bronchitis Acute respiratory failure Anxiety Asthma Atherosclerotic heart disease of [place] coronary artery without angina pectoris Chronic bronchitis COPD (chronic obstructive pulmonary disease) Essential hypertension Fatty liver GERD (gastroesophageal reflux disease) Gout History of myocardial infarction History of retained foreign body fully removed Hyperlipemia Lupus Osteoarthritis Pulmonary embolism Seasonal allergies Solitary lung nodule Swelling of lower leg Home Medications albuterol sulfate 2.5 mg INHALATION .qid PRN #180 vial 11/15/18 [Rx Last Taken Unknown] albuterol sulfate 90 mcg/actuation aerosol inhaler 2 puff INHALATION Q6H PRN #8.5 g 11/15/18 [Rx Last Taken Unknown] fluticasone propionate 50 mcg/actuation nasal spray,suspension 2 spray INTRANAS AL QDAY #1 device 11/15/18 [Rx Last Taken Unknown] amlodipine 5 mg tablet 5 mg PO QHS #30 tab 07/14/20 [Rx Last Taken Unknown] aspirin 81 mg tablet,delayed release 81 mg PO QHS #30 tab 07/14/20 [Rx Last Taken Unknown] losartan 50 mg tablet 50 mg PO QHS #30 tab 07/14/20 [Rx Last Taken Unknown] metoprolol succinate 25 mg tablet,extended release 24 hr 25 mg PO QHS #30 tab 07/14/20 [Rx Last Taken Unknown] nitroglycerin 0.4 mg sublingual tablet 0.4 mg SUBLINGUAL Q5-15M PRN #25 tab 07/14/20 [Rx Last Taken Unknown] rosuvastatin 5 mg tablet 5 mg PO DAILY #30 tab 07/14/20 [Rx Last Taken Unknown] ondansetron 4 mg PO Q8H PRN PRN #10 tab 07/20/20 [Rx Last Taken Unknown] loratadine 10 mg tablet 10 mg PO DAILY #90 tab 10/02/20 [Rx Last Taken Unknown] omeprazole 40 mg capsule,delayed release 40 mg PO DAILY #90 cap 11/18/20 [Rx Last Taken Unknown] trazodone 50 mg tablet 50 mg PO QHS #90 tab 11/18/20 [Rx Last Taken Unknown] oxycodone-acetaminophen [Percocet] 1 tab PO Q4H PRN 2 Days #8 tab 03/16/21 [Rx Last Taken Unknown] prednisone 10 mg PO UD #33 tab 03/16/21 [Rx Last Taken Unknown] Allergy/AdvReac Type Severity Reaction Status Date / Time ketorolac [From Toradol] Allergy Itching Verified 09/23/20 23:13 oral antibiotics AdvReac Upset Uncoded 09/23/20 23:13 Stomach Family History Mother Heart disease Aunt Heart disease Grandmother Heart disease Grandfather Heart disease Surgical History H/O section History of carpal tunnel surgery History of coronary artery bypass surgery (~05/24/15) History of tonsillectomy and adenoidectomy History of tubal ligation Hx of breast reduction, elective Polyps from throat removed S/P trigger finger release S/P triple vessel bypass Social History Smoking Status: Current every day smoker tobacco type: cigarettes alcohol intake: current substance use type: marijuana what type of physical activity do you participate in: walking frequency: 5-6 times per week ROS ROS ED Constitutional Constitutional ED: Reports anorexia, body ache(s), fatigue and headache(s); Denies chills or fever(s) Eyes Eyes: Denies change in vision or diplopia ENT ENT ED: Denies rhinorrhea or sore throat Cardiovascular Cardiovascular: Denies chest pain or palpitations Respiratory/Chest Respiratory/Chest: Reports cough; Denies dyspnea Gastrointestinal Gastrointestinal: Denies abdominal pain, diarrhea, nausea or vomiting Genitourinary Genitourinary ED: Denies dysuria or hematuria Musculoskeletal Musculoskeletal: Reports as per HPI, extremity pain, joint pain, joint stiffness and joint swelling; Denies back pain or neck pain Integumentary Denies abscess or rash Neurologic Neurologic: Reports headache(s); Denies paresthesias or weakness Psychiatric Psychiatric: Reports anxiety; Denies suicidal thoughts EXAM Physical Exam Const Vital Signs: 03/16/21 20:13 Temperature 97.7 F L Temperature Source Temporal Pulse Rate 90 Respiratory Rate 18 Blood Pressure 121/80 H Blood Pressure Mean 93 Pulse Ox 96 Oxygen Delivery Method Room Air Positive well nourished and well developed General Appearance ED: well developed and NAD HEENT Reports moist mucous membranes normocephalic and atraumatic Eyes PERRL and EOMs intact bilaterally Neck full ROM and supple Resp normal respiratory effort, normal air movement and no retractions Resp Narrative: Occasional expiratory wheeze bilaterally. Occasional nonproductive cough with bronchospasm. Cardio regular rate, regular rhythm and no murmurs GI non-tender and non-distended Auscultation: normoactive bowel sounds Palpation: soft Back/Spine no CVA tenderness General Back: other FROM Extremity normal to inspection Extremity Narrative: Her right hand has very limited range of motion of the fingers and thumb due to pain, holding it in neutral position. Limited exam to some degree, but neurovascularly intact distally all digits, normal sensation. MCPJ's are slightly more prominent than on the contralateral hand. The thumb joints all appear normal and the thenar eminence is not edematous or enlarged as the patient suggests, objectively. She can move the wrist better and the elbow better still in the shoulder normally. She states that hurts to palpate all of the affected joints of the right hand. She does not have large nodes distally. No splinter hemorrhages or Osler's nodes or other skin lesions. Wrist and elbow are not abnormally warm, none of the joints are erythematous. Good range of motion throughout the joints of all other extremities. General Extremety ED: Yes tenderness; Negative for edema or pulses abnormal General Extremity: Negative for edema or pulses abnormal Neuro oriented x3, CN's II-XII intact bilaterally and no sensory deficits noted Sensorium / Orientation: awake and alert Motor Exam: strength 5/5 throughout Psych cooperative Psych Narrative: Extremely anxious and tearful at times Skin no rashes or lesions noted and no wounds MDM MDM MDM Narrative Medical decision making narrative: I had to redirect this patient several times to get to exactly why she had come to the emergency department, she is so anxious in discussing all of her symptoms and how long they have been there, that it took multiple attempts at redirection. 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 I did take uric acid, it is within normal limits and this is not enough to rule out gout, but clinically I do not think that is what is going on since she has so many joints of her right hand affected. She was offered prednisone which she was amenable to but does not want to take it right now since it is almost bedtime and she states it will keep her up so she will started in the morning. I gave her a taper, which may or may not help her cough and COPD as well but she really is not very dyspneic and I do not think she needs to be evaluated for pulmonary embolus right now, especially since her vital signs are normal including lack of hypoxemia or tachycardia. She is driving herself home, so I gave her a prescription for a few Percocet to use for pain, advised close outpatient follow-up with her doctor, and she may inquire into the [facility] long-hauler clinic for Covid long-hauler symptoms, which I discussed with her. Lab Data Attestation: I reviewed the patient's lab results. Labs: Laboratory Results - last 24 hr 03/16/21 03/16/21 21:00 21:00 WBC 10.8 RBC 4.08 L Hgb 12.9 Hct 38.4 MCV 94.1 MCH 31.6 MCHC 33.6 RDW Std Deviation 41.4 RDW Coeff of Louie 11.9 Plt Count 331 MPV 9.1 Immature Gran % (Auto) 1.000 H Neut % (Auto) 54.0 Lymph % (Auto) 31.4 [place] % (Auto) 9.5 Eos % (Auto) 3.3 Baso % (Auto) 0.8 Absolute Neuts (auto) 5.8 Absolute Lymphs (auto) 3.38 Nucleated RBC % 0 Sodium 140 Potassium 4.0 Chloride 101 Carbon Dioxide 33.0 H Anion Gap 6 BUN 5 L Creatinine 0.59 Estim Creat Clear Calc 99.23 Est GFR (MDRD) Af Amer 138 Est GFR (MDRD) Non-Af 114 BUN/Creatinine Ratio 8.5 L Glucose 88 Uric Acid 3.5 Calcium 9.0 Total Bilirubin 0.10 L AST 10 L ALT 16 Alkaline Phosphatase 86 Total Protein 7.6 Albumin 3.5 Globulin 4.1 Albumin/Globulin Ratio 0.9 Radiography Chest X-Ray - ED: 2 View, Read by ED Physician, Normal and No Acute Disease Discharge Plan Triage Chief Complaint: Upper Extremity Injury ED Provider: Rolando Rucker Dx/Rx/DC Orders Clinical Impression: COVID-19 long hauler, COPD (chronic obstructive pulmonary disease), Arthritis of right hand Instructions: Coronavirus Disease 2019 (COVID-19): Overview, Osteoarthritis: Common Sites Prescriptions: New prednisone 10 MG tablet 10 mg PO UD Qty: 33 RF: 0 oxycodone-acetaminophen [Percocet] 5-325 mg tablet 1 tab PO Q4H PRN (Reason: pain) 2 Days Qty: 8 RF: 0 No Action fluticasone propionate [Flonase Allergy Relief] 50 mcg/actuation spray,suspension 2 spray intranasal QDAY Qty: 1 RF: 3 ProAir HFA 90 mcg/actuation HFA aerosol inhaler 2 puff INHALATION Q6H PRN (Reason: Sob &/Or Wheezing) Qty: 8.5 RF: 6 albuterol sulfate 2.5 mg /3 mL (0.083 %) solution for nebulization 2.5 mg INHALATION .qid PRN (Reason: Sob &/Or Wheezing) Qty: 180 RF: 6 omeprazole 40 mg capsule,delayed release(DR/EC) 40 mg PO DAILY Qty: 90 RF: 3 trazodone 50 mg tablet 50 mg PO QHS Qty: 90 RF: 3 ondansetron 4 MG tablet 4 mg PO Q8H PRN PRN (Reason: Nausea) Qty: 10 RF: 0 amlodipine [Norvasc] 5 mg tablet 5 mg PO QHS Qty: 30 RF: 11 aspirin 81 mg tablet,delayed release (DR/EC) 81 mg PO QHS Qty: 30 RF: 11 losartan 50 mg tablet 50 mg PO QHS Qty: 30 RF: 11 metoprolol succinate 25 mg tablet extended release 24 hr 25 mg PO QHS Qty: 30 RF: 11 rosuvastatin 5 mg tablet 5 mg PO DAILY Qty: 30 RF: 11 nitroglycerin 0.4 mg tablet, sublingual 0.4 mg SUBLINGUAL Q5-15M PRN (Reason: chest pain) Qty: 25 RF: 3 loratadine [Claritin] 10 mg tablet 10 mg PO DAILY Qty: 90 RF: 3 Primary Care Provider: Haresh Nunez Referrals: Haresh Nunez MD [Primary Care Provider] - As soon as possible Disposition Disposition: Home, Self Care
== END 2021-03-16 22:28 | disposition home or self-care (01) ==
PROVIDERS: Emergency Provider Emergency Medicine; PCP Internal Medicine
DX: U07.1 COVID-19 (principal); J44.9 Chronic obstructive pulmonary disease, unspecified; M19.041 Primary osteoarthritis, right hand; I25.10 Atherosclerotic heart disease of native coronary artery without angina pectoris; I25.2 Old myocardial infarction; I10 Essential (primary) hypertension; E78.5 Hyperlipidemia, unspecified; K21.9 Gastro-esophageal reflux disease without esophagitis; M06.9 Rheumatoid arthritis, unspecified; M32.9 Systemic lupus erythematosus, unspecified; F17.210 Nicotine dependence, cigarettes, uncomplicated; Z79.82 Long term (current) use of aspirin; Z79.899 Other long term (current) drug therapy
CPT/HCPCS: 71046; 80053; 84550; 85025; 99283

== ENCOUNTER → 2021-05-06 15:14 | Outpatient (CLI) | payer MEDICAID, SELFPAY ==
[2021-05-06 16:49] LABS: Absolute Lymphocyte Count 2.69 X10^3/uL (0.83-4.51); Absolute Neutrophil Count 6.1 X10^3/uL (2.0-7.7); Basophil# 0.07 X10^3/uL; Basophil% 0.7 % (0-1); Eosinophil# 0.35 X10^3/uL; Eosinophils% 3.5 % (0-5); Lymphocyte # 2.69 X10^3/ul (0.83-4.51); Lymphocyte % 26.6 % (19-41); Mean Corp Hgb Conc 33.3 g/dL (32-36); Mean Corpuscular Hgb 31.7 pg (27.0-32.0); Mean Platelet Vol. 10.4 fl (6.2-12.0); Monocyte# 0.89 X10^3/uL; Monocyte% 8.8 % (0-10); NRBC Flagged by Analyzer 0 % (0-5); Neutrophil # 6.06 X10^3/uL (2.7-7.7); Neutrophil % 59.9 % (47-70); Platelet Count 266 K/mm3 (150-450); RBC Distribution Width CV 12.2 % (11.6-14.6); RBC Distribution Width SD 42.7 fl (35.1-43.9); Red Blood Count 3.79 M/mm3 (4.2-5.4); White Blood Count 10.1 K/mm3 (4.4-11.0)
[2021-05-06 17:10] LABS: Vitamin B12 461 pg/mL (211-911); Vitamin D,25 Hydroxy 46.3 ng/mL
[2021-05-06 17:18] LABS: AST(SGOT) 12 U/L (15-37); Alanine Aminotransfer ALT/SGPT 15 U/L (13-56); Albumin, Serum 3.6 g/dL (3.2-5.0); Alkaline Phosphatase 74 U/L (45-117); Anion Gap 4 (5-15); BUN 5 mg/dL (7-18); Calcium,Total 9.1 mg/dL (8.5-10.1); Chloride 106 mmol/L (98-107); EST Glomerular Filtration Rate 137 mL/min (>60); Est Glom Filt Rate - Afr Amer 166 mL/min (>60); Globulin 3.7 g/dL (2.2-4.2); Glucose 89 mg/dL (74-106); Potassium 4.2 mmol/L (3.5-5.1); Protein, Total 7.3 g/dL (6.4-8.2); Sodium Level 139 mmol/L (136-145); Thyroid Stim Hormone (TSH) 1.28 uIU/mL (0.358-3.74)
== END ==
PROVIDERS: PCP Internal Medicine; Referring Provider Physician Assistant; Visit Provider Physician Assistant
DX: J44.9 Chronic obstructive pulmonary disease, unspecified (principal); U07.1 COVID-19; E53.8 Deficiency of other specified B group vitamins; E55.9 Vitamin D deficiency, unspecified; F41.9 Anxiety disorder, unspecified
CPT/HCPCS: 36415; 80053; 82306; 82607; 84439; 84443; 85025

== ENCOUNTER 2021-08-11 01:09 | Emergency (ER) | payer MEDICAID, SELFPAY ==
[2021-08-11 01:10] VITALS: BP 141/75; PULSE 95; RESP 14; TEMP 36.7; O2SAT 99; BMI 26.8
--- NOTE | 2021-08-11 01:51 | EDS_ITS ---
HPI History of Present Illness Chief Complaint: Dental Narrative Narrative: Patient presenting with dental pain. Apparently she saw her dentist on Monday for root canal but was only able to get part way through this procedure because of pain. The patient states that on Monday she continued to have pain and was able to speak with a dentist office. She states the pain medication was called for her however she was unable to get it because her son was life lighted for a cerebral aneurysm. She states she was in [place] and could not get the medication. She states he does not know what medication was prescribed. She has difficulty with most antibiotics but states she can marcie ate amoxicillin, Augmentin, Z-Charlie. Patient states that she has not noted any drainage. She has no facial swelling. No trouble swallowing or breathing. No fever. PFSH [facility] Medical History AC (acromioclavicular) joint bone spurs Acute exacerbation of chronic bronchitis Acute respiratory failure Anxiety Asthma Atherosclerotic heart disease of [place] coronary artery without angina pectoris Chronic bronchitis COPD (chronic obstructive pulmonary disease) Essential hypertension Fatty liver GERD (gastroesophageal reflux disease) Gout History of myocardial infarction History of retained foreign body fully removed Hyperlipemia Lupus Osteoarthritis Pulmonary embolism Seasonal allergies Solitary lung nodule Swelling of lower leg Home Medications aspirin 81 mg tablet,delayed release 81 mg PO QHS #30 tab 07/14/20 [Rx Last Taken Unknown] nitroglycerin 0.4 mg sublingual tablet 0.4 mg SUBLINGUAL Q5-15M PRN #25 tab 07/14/20 [Rx Last Taken Unknown] ondansetron 4 mg PO Q8H PRN PRN #10 tab 07/20/20 [Rx Last Taken Unknown] loratadine 10 mg tablet 10 mg PO DAILY #90 tab 10/02/20 [Rx Last Taken Unknown] omeprazole 40 mg capsule,delayed release 40 mg PO DAILY #90 cap 11/18/20 [Rx Last Taken Unknown] trazodone 50 mg tablet 50 mg PO QHS #90 tab 11/18/20 [Rx Last Taken Unknown] fluticasone 250 mcg-salmeterol 50 mcg/dose blistr powdr for inhalation 1 inh INHALATION BID #60 ea 05/07/21 [Rx Last Taken Unknown] fluticasone propionate 50 mcg/actuation nasal spray,suspension 2 spray INTRANASAL QDAY #1 device 05/07/21 [Rx Last Taken Unknown] ProAir HFA 90 mcg/actuation aerosol inhaler 2 puff INHALATION Q6H PRN #8.5 g NS 06/11/21 [Rx Last Taken Unknown] amlodipine 5 mg tablet 5 mg PO QHS #90 tab 07/13/21 [Rx Last Taken Unknown] losartan 50 mg tablet 50 mg PO QHS #90 tab 07/13/21 [Rx Last Taken Unknown] metoprolol succinate 25 mg tablet,extended release 24 hr 25 mg PO QHS #90 tab 07/13/21 [Rx Last Taken Unknown] rosuvastatin 5 mg tablet 5 mg PO DAILY #90 tab 07/13/21 [Rx Last Taken Unknown] amoxicillin-pot clavulanate 1 tab PO BID #20 tab 08/11/21 [Rx Last Taken Unknown] hydrocodone-acetaminophen 1 tab PO Q6H PRN 3 Days #10 tab 08/11/21 [Rx Last Taken Unknown] Allergy/AdvReac Type Severity Reaction Status Date / Time ketorolac [From Toradol] Allergy Itching Verified 08/11/21 01:15 oral antibiotics AdvReac Upset Uncoded 08/11/21 01:15 Stomach Family History Mother Heart disease Aunt Heart disease Grandmother Heart disease Grandfather Heart disease Surgical History H/O section History of carpal tunnel surgery History of coronary artery bypass surgery (~05/24/15) History of tonsillectomy and adenoidectomy History of tubal ligation Hx of breast reduction, elective Polyps from throat removed S/P trigger finger release S/P triple vessel bypass Social History Smoking Status: Current every day smoker tobacco type: cigarettes alcohol intake: current substance use type: marijuana what type of physical activity do you participate in: walking frequency: 5-6 times per week ROS ROS ED Constitutional Constitutional ED: Denies chills or fever(s) Eyes Eyes: Denies blurry vision or change in vision ENT ENT ED: Reports other Details: Dental pain ; Denies rhinorrhea or sore throat Cardiovascular Cardiovascular: Denies chest pain or palpitations Respiratory/Chest Respiratory/Chest: Denies cough or dyspnea Gastrointestinal Gastrointestinal: Denies nausea Genitourinary Genitourinary ED: Denies dysuria or hematuria Musculoskeletal Musculoskeletal: Denies arthralgias or myalgias Integumentary Denies rash Neurologic Neurologic: Denies headache(s) or paresthesias Psychiatric Psychiatric: Denies anxiety or depression EXAM Physical Exam Const Vital Signs: 08/11/21 01:10 Temperature 98.1 F Temperature Source Temporal Pulse Rate 95 Respiratory Rate 14 Blood Pressure 141/75 H Blood Pressure Mean 97 Pulse Ox 99 Oxygen Delivery Method Room Air Positive well nourished General Appearance ED: NAD HEENT Reports head/scalp atraumatic normocephalic; Negative for trauma Face and Sinus: sinuses nontender and face symmetric Mouth ED: Yes oral and palatal mucosa normal, Yes lips normal, Yes tongue norm al, Yes salivary gland normal, Yes moist mucous membranes normal, No drooling, No muffled voice and No trismus Mouth: oral and palatal mucosa normal, lips normal, tongue normal, salivary gland normal, No drooling, No muffled voice, No trismus and other Other Details: Multiple dental caries throughout. Focal tenderness over tooth #10. Teeth and Gingiva: abnormal tooth and associated gingiva Positive for tenderness Throat: posterior oropharynx normal and tonsils normal Neck no lymphadenopathy and supple General: Negative for anterior neck swelling or submandibular swelling Lymph Lymphatic: Negative for no lymphadenopathy noted Resp normal respiratory effort and clear to auscultation bilaterally Cardio regular rate and regular rhythm Neuro oriented x3 and CN's II-XII intact bilaterally Sensorium / Orientation: alert Psych mental status grossly normal MDM MDM MDM Narrative Medical decision making narrative: Patient presenting with dental pain after dental procedure. She was unable to finish her root canal. She needs to follow-up with her dentist but is currently stating that she is unable to because she has to go to [place] to be with her son who was [facility] at their with a cerebral aneurysm. Patient was unable to get antibiotics. She states that ibuprofen is not helping her. She does not know if her dentist told her anything for pain. Patient is driving tonight. I was able to get her a prescription for Augmentin and counseled her that she will need to see her dentist. She was given a prescription for [place] which she will take when she gets home. This was filled at a pharmacy at [facility]. Patient stable for discharge at this time. Impression: 1. Postoperative dental pain 2. Multiple dental caries Discharge Plan Triage Chief Complaint: Dental ED Provider: Alan Sow Dx/Rx/DC Orders Instructions: ED Dental Cavity Prescriptions: New amoxicillin-pot clavulanate 875-125 mg tablet 1 tab PO BID Qty: 20 RF: 0 hydrocodone-acetaminophen 5-325 mg tablet 1 tab PO Q6H PRN (Reason: pain) 3 Days Qty: 10 RF: 0 No Action omeprazole 40 mg capsule,delayed release(DR/EC) 40 mg PO DAILY Qty: 90 RF: 3 trazodone 50 mg tablet 50 mg PO QHS Qty: 90 RF: 3 ondansetron 4 MG tablet 4 mg PO Q8H PRN PRN (Reason: Nausea) Qty: 10 RF: 0 aspirin 81 mg tablet,delayed release (DR/EC) 81 mg PO QHS Qty: 30 RF: 11 nitroglycerin 0.4 mg tablet, sublingual 0.4 mg SUBLINGUAL Q5-15M PRN (Reason: chest pain) Qty: 25 RF: 3 loratadine [Claritin] 10 mg tablet 10 mg PO DAILY Qty: 90 RF: 3 fluticasone propion-salmeterol [Advair Diskus] 250-50 mcg/dose blister with device 1 inh inhalation BID Qty: 60 RF: 1 fluticasone propionate [Flonase Allergy Relief] 50 mcg/actuation spray,suspension 2 spray intranasal QDAY Qty: 1 RF: 3 ProAir HFA 90 mcg/actuation HFA aerosol inhaler 2 puff INHALATION Q6H PRN (Reason: Sob &/Or Wheezing) Qty: 8.5 RF: 6 metoprolol succinate 25 mg tablet extended release 24 hr 25 mg PO QHS Qty: 90 RF: 3 losartan 50 mg tablet 50 mg PO QHS Qty: 90 RF: 3 rosuvastatin 5 mg tablet 5 mg PO DAILY Qty: 90 RF: 3 amlodipine [Norvasc] 5 mg tablet 5 mg PO QHS Qty: 90 RF: 3 Primary Care Provider: Hasmukh Patton Referrals: Haresh Nunez MD [STAFF PHYSICIAN] - Disposition Disposition: Home, Self Care
== END 2021-08-11 02:25 | disposition home or self-care (01) ==
LOC: ED 01:40
PROVIDERS: Emergency Provider Student in an Organized Health Care Education/Training Program; PCP Family Medicine; Visit Provider Student in an Organized Health Care Education/Training Program
DX: K02.9 Dental caries, unspecified (principal); J44.9 Chronic obstructive pulmonary disease, unspecified; G89.18 Other acute postprocedural pain; I25.10 Atherosclerotic heart disease of native coronary artery without angina pectoris; I10 Essential (primary) hypertension; E78.5 Hyperlipidemia, unspecified; K21.9 Gastro-esophageal reflux disease without esophagitis; F17.210 Nicotine dependence, cigarettes, uncomplicated; Z95.1 Presence of aortocoronary bypass graft; Z79.82 Long term (current) use of aspirin; Z79.899 Other long term (current) drug therapy
CPT/HCPCS: 64999; 99282

== ENCOUNTER 2021-09-05 22:00 | Emergency (ER) | payer MEDICAID, SELFPAY ==
[2021-09-05 22:04] VITALS: BP 157/112; PULSE 90; RESP 16; TEMP 36.1; O2SAT 99; BMI 25.0
[2021-09-05 22:49] LABS: Bacteria 0 SEEN /hpf (None Seen); Mucous, Urine 0 SEEN /hpf (<or=2+); Red Blood Cells-Urine 0 SEEN /hpf (0-5); Squamous Epithelial Cells - UA 0 SEEN /hpf (5-10); White Blood Cells 0 SEEN /hpf (0-5)
[2021-09-05 22:53] LABS: Color, Urine Yellow (Yellow); Glucose, Dipstick Normal (Normal); Ketone-Dipstick Negative (Negative); Leukocyte Esterase-Dipstick Negative /ul (Negative); Nitrite-Dipstick Negative (Negative); Occult Blood-Urine 10 /ul (Negative); Protein-Dipstick 15 mg/dl (Negative); Urine Bilirubin Dipstick Negative (Negative); Urine Clarity Clear (Clear); Urine Urobilinogen Normal (Normal)
[2021-09-05 22:54] LABS: Absolute Lymphocyte Count 2.68 X10^3/uL (0.83-4.51); Absolute Neutrophil Count 6.6 X10^3/uL (2.0-7.7); Basophil# 0.07 X10^3/uL; Basophil% 0.7 % (0-1); Eosinophil# 0.16 X10^3/uL; Eosinophils% 1.6 % (0-5); Hematocrit 36.4 % (37-47); Hemoglobin 12.2 g/dL (12.0-15.0); Lymphocyte # 2.68 X10^3/ul (0.83-4.51); Lymphocyte % 26.1 % (19-41); Mean Corp Hgb Conc 33.5 g/dL (32-36); Mean Corpuscular Hgb 31.6 pg (27.0-32.0); Mean Corpuscular Volume 94.3 fL (81-99); Mean Platelet Vol. 9.4 fl (6.2-12.0); Monocyte# 0.73 X10^3/uL; Monocyte% 7.1 % (0-10); NRBC Flagged by Analyzer 0 % (0-5); Neutrophil # 6.57 X10^3/uL (2.7-7.7); Neutrophil % 63.8 % (47-70); Platelet Count 300 K/mm3 (150-450); RBC Distribution Width CV 12.1 % (11.6-14.6); RBC Distribution Width SD 41.8 fl (35.1-43.9); Red Blood Count 3.86 M/mm3 (4.2-5.4); White Blood Count 10.3 K/mm3 (4.4-11.0)
[2021-09-05] MEDS: Morphine 4 MG/ML Syringe IV (22:59)
[2021-09-05] MEDS: 0.9% Normal Saline 1,000 ML 999 ML IV (22:59)
[2021-09-05] MEDS: Ondansetron 4 MG/2 ML Vial IV (23:00)
[2021-09-05 23:03] LABS: Anion Gap 4 (5-15); BUN 5 mg/dL (7-18); BUN/Creat Ratio 8.3 RATIO (10-20); Calcium,Total 9.1 mg/dL (8.5-10.1); Chloride 104 mmol/L (98-107); EST Glomerular Filtration Rate 111 mL/min (>60); Est Glom Filt Rate - Afr Amer 134 mL/min (>60); Estimated Creatinine Clearance 96.45 ml/min; Glucose 108 mg/dL (74-106); Sodium Level 139 mmol/L (136-145)
--- NOTE | 2021-09-05 23:47 | EDS_ITS ---
HPI History of Present Illness Chief Complaint: Other, Pain/Inj Narrative Narrative: Patient is a 56-year-old female who presents the ER with multiple complaints. She states she has noticed bilateral back pain over the past few days with no acute trauma. She also states now she has noticed some pain in her right leg that seems to extend from her buttocks down to her ankle. She states that the pain seems to worsen with any type of motion. She denies any loss of bowel or bladder control or IV drug use. She states that she has been trying [id number] medications with minimal symptom improvement and secondary to this presents for evaluation. [facility] Medical History AC (acromioclavicular) joint bone spurs Acute exacerbation of chronic bronchitis Acute respiratory failure Anxiety Asthma Atherosclerotic heart disease of [place] coronary artery without angina pectoris Chronic bronchitis COPD (chronic obstructive pulmonary disease) Essential hypertension Fatty liver GERD (gastroesophageal reflux disease) Gout History of myocardial infarction History of retained foreign body fully removed Hyperlipemia Lupus Osteoarthritis Pulmonary embolism Seasonal allergies Solitary lung nodule Swelling of lower leg Home Medications aspirin 81 mg tablet,delayed release 81 mg PO QHS #30 tab 07/14/20 [Rx Last Taken Unknown] nitroglycerin 0.4 mg sublingual tablet 0.4 mg SUBLINGUAL Q5-15M PRN #25 tab 07/14/20 [Rx Last Taken Unknown] ondansetron 4 mg PO Q8H PRN PRN #10 tab 07/20/20 [Rx Last Taken Unknown] loratadine 10 mg tablet 10 mg PO DAILY #90 tab 10/02/20 [Rx Last Taken Unknown] omeprazole 40 mg capsule,delayed release 40 mg PO DAILY #90 cap 11/18/20 [Rx Last Taken Unknown] trazodone 50 mg tablet 50 mg PO QHS #90 tab 11/18/20 [Rx Last Taken Unknown] fluticasone 250 mcg-salmeterol 50 mcg/dose blistr powdr for inhalation 1 inh INHALATION BID #60 ea 05/07/21 [Rx Last Taken Unknown] fluticasone propionate 50 mcg/actuation nasal spray,suspension 2 spray INTRANASAL QDAY #1 device 05/07/21 [Rx Last Taken Unknown] ProAir HFA 90 mcg/actuation aerosol inhaler 2 puff INHALATION Q6H PRN #8.5 g NS 01/07/22 [Rx Last Taken Unknown] amlodipine 5 mg tablet 5 mg PO QHS #90 tab 07/13/21 [Rx Last Taken Unknown] losartan 50 mg tablet 50 mg PO QHS #90 tab 07/13/21 [Rx Last Taken Unknown] metoprolol succinate 25 mg tablet,extended release 24 hr 25 mg PO QHS #90 tab 07/13/21 [Rx Last Taken Unknown] rosuvastatin 5 mg tablet 5 mg PO DAILY #90 tab 07/13/21 [Rx Last Taken Unknown] amoxicillin-pot clavulanate 1 tab PO BID #20 tab 08/11/21 [Rx Last Taken Unknown] hydrocodone-acetaminophen 1 tab PO Q6H PRN 3 Days #10 tab 08/11/21 [Rx Last Taken Unknown] methocarbamol 1,000 mg PO 4X/DAY PRN PRN 7 Days #56 tab 09/05/21 [Rx Last Taken Unknown] oxycodone-acetaminophen [Percocet] 1 tab PO Q6H PRN 3 Days #12 tab 09/05/21 [Rx Last Taken Unknown] Allergy/AdvReac Type Severity Reaction Status Date / Time ketorolac [From Toradol] Allergy Itching Verified 08/11/21 01:15 acetaminophen [From Vicodin] AdvReac Itching Verified 09/05/21 22:10 hydrocodone [From Vicodin] AdvReac Itching Verified 09/05/21 22:10 oral antibiotics AdvReac Upset Uncoded 08/11/21 01:15 Stomach Family History Mother Heart disease Aunt Heart disease Grandmother Heart disease Grandfather Heart disease Surgical History H/O section History of carpal tunnel surgery History of coronary artery bypass surgery (~05/24/15) History of tonsillectomy and adenoidectomy History of tubal ligation Hx of breast reduction, elective Polyps from throat removed S/P trigger finger release S/P triple vessel bypass Social History Smoking Status: Current every day smoker tobacco type: cigarettes alcohol intake: current substance use type: marijuana what type of physical activity do you participate in: walking frequency: 5-6 times per week ROS ROS ED Constitutional Constitutional ED: Denies chills or fever(s) ENT ENT ED: Denies sore throat Cardiovascular Cardiovascular: Denies chest pain Respiratory/Chest Respiratory/Chest: Denies cough or dyspnea Gastrointestinal Gastrointestinal: Denies abdominal pain, diarrhea, nausea or vomiting Genitourinary Genitourinary ED: Denies dysuria or hematuria Musculoskeletal Musculoskeletal: Reports back pain and myalgias Integumentary Denies rash Neurologic Neurologic: Denies headache(s) or paresthesias Hematologic/Lymphatic Hematologic/Lymphatic: Denies easy bleeding or easy bruising EXAM Physical Exam Const Vital Signs: 09/05/21 22:04 09/06/21 00:01 Temperature 96.9 F L Temperature Source Temporal Pulse Rate 90 81 Respiratory Rate 16 18 Blood Pressure 157/112 H 137/75 H Blood Pressure Mean 127 Pulse Ox 99 99 Oxygen Delivery Method Room Air Positive well nourished and well developed General Appearance ED: well developed Eyes PERRL and EOMs intact bilaterally Neck supple Resp normal respiratory effort and clear to auscultation bilaterally Cardio regular rate and regular rhythm GI normal to inspection, nondistended, normoactive bowel sounds, non-tender, non- distended and no masses Auscultation: normoactive bowel sounds Palpation: soft Back/Spine Back/Spine Narrative: No bony deformity or step-off of the thoracic or lumbar spine. No midline pain with palpation. There is bilateral paralumbar tension and spasm noted as well as pain with palpation that worsens with motion. No saddle anesthesia. Negative straight leg raise. No clonus or Babinski. Patellar reflexes are plus 1 out of 4 bilaterally. Extremity normal to inspection Extremity Narrative: No asymmetric edema no pitting edema negative Homans' sign bilaterally. Neuro oriented x3 and CN's II-XII intact bilaterally Sensorium / Orientation: alert Motor Exam: strength 5/5 throughout Psych mental status grossly normal Skin no rashes or lesions noted Skin Narrative: No overlying soft tissue changes to suggest trauma or infection MDM MDM MDM Narrative Medical decision making narrative: Patient presented to the ER hypertensive but does have a history of this and secondary to her pain the value is within reason. The patient underwent a basic work-up because of her back pain and concern for possible pyelonephritis but her white count is normal kidney function is normal and she has no signs of infection on the urine screen. Also she has no risk factors for cauda equina or epidural abscess and physical exam does not suggest nerve impingement. However she does have increased pain with palpation over top the piriformis muscle belly indicating that her leg pain could be due to piriformis syndrome. After medication she does report feeling better and therefore I will place the patient on a few days worth of muscle relaxers and pain pills and she can follow-up on an outpatient basis. Lab Data Attestation: I reviewed the patient's lab results. Labs: Laboratory Results - last 24 hr 09/05/21 09/05/21 09/05/21 22:43 22:43 22:43 WBC 10.3 RBC 3.86 L Hgb 12.2 Hct 36.4 L MCV 94.3 MCH 31.6 MCHC 33.5 RDW Std Deviation 41.8 RDW Coeff of Louie 12.1 Plt Count 300 MPV 9.4 Immature Gran % (Auto) 0.700 Neut % (Auto) 63.8 Lymph % (Auto) 26.1 Ward % (Auto) 7.1 Eos % (Auto) 1.6 Baso % (Auto) 0.7 Absolute Neuts (auto) 6.6 Absolute Lymphs (auto) 2.68 Nucleated RBC % 0 Sodium 139 Potassium 4.0 Chloride 104 Carbon Dioxide 31.0 Anion Gap 4 L BUN 5 L Creatinine 0.60 Estim Creat Clear Calc 96.45 Est GFR (MDRD) Af Amer 134 Est GFR (MDRD) Non-Af 111 BUN/Creatinine Ratio 8.3 L Glucose 108 H Calcium 9.1 Urine Color Yellow Urine Clarity Clear Urine pH 8.0 Ur Specific [place] 1.010 Urine Protein 15 H Urine Glucose (UA) Normal Urine Ketones Negative Urine Occult Blood 10 H Urine Nitrite Negative Urine Bilirubin Negative Urine Urobilinogen Normal Ur Leukocyte Esterase Negative Urine RBC 0 SEEN Urine WBC 0 SEEN Ur Squamous Epith Cells 0 SEEN Urine Bacteria 0 SEEN Urine Mucus 0 SEEN Discharge Plan Triage Chief Complaint: Other, Pain/Inj ED Provider: Chuck Cadet Dx/Rx/DC Orders Clinical Impression: Piriformis syndrome, Acute lumbosacral myofascial strain Instructions: ED Back Sprain/Strain Prescriptions: New oxycodone-acetaminophen [Percocet] 5-325 mg tablet 1 tab PO Q6H PRN (Reason: pain) 3 Days Qty: 12 RF: 0 methocarbamol 500 mg tablet 1,000 mg PO 4X/DAY PRN PRN (Reason: Muscle pain/spasm) 7 Days Qty: 56 RF: 0 No Action omeprazole 40 mg capsule,delayed release(DR/EC) 40 mg PO DAILY Qty: 90 RF: 3 trazodone 50 mg tablet 50 mg PO QHS Qty: 90 RF: 3 ondansetron 4 MG tablet 4 mg PO Q8H PRN PRN (Reason: Nausea) Qty: 10 RF: 0 amoxicillin-pot clavulanate 875-125 mg tablet 1 tab PO BID Qty: 20 RF: 0 hydrocodone-acetaminophen 5-325 mg tablet 1 tab PO Q6H PRN (Reason: pain) 3 Days Qty: 10 RF: 0 aspirin 81 mg tablet,delayed release (DR/EC) 81 mg PO QHS Qty: 30 RF: 11 nitroglycerin 0.4 mg tablet, sublingual 0.4 mg SUBLINGUAL Q5-15M PRN (Reason: chest pain) Qty: 25 RF: 3 loratadine [Claritin] 10 mg tablet 10 mg PO DAILY Qty: 90 RF: 3 fluticasone propion-salmeterol [Advair Diskus] 250-50 mcg/dose blister with device 1 inh inhalation BID Qty: 60 RF: 1 fluticasone propionate [Flonase Allergy Relief] 50 mcg/actuation spray,suspension 2 spray intranasal QDAY Qty: 1 RF: 3 ProAir HFA 90 mcg/actuation HFA aerosol inhaler 2 puff INHALATION Q6H PRN (Reason: Sob &/Or Wheezing) Qty: 8.5 RF: 6 metoprolol succinate 25 mg tablet extended release 24 hr 25 mg PO QHS Qty: 90 RF: 3 losartan 50 mg tablet 50 mg PO QHS Qty: 90 RF: 3 rosuvastatin 5 mg tablet 5 mg PO DAILY Qty: 90 RF: 3 amlodipine [Norvasc] 5 mg tablet 5 mg PO QHS Qty: 90 RF: 3 Other Ambulatory Orders: Venous Duplex US, Unilateral (Routine) Facility: [facility] - Location: [facility] Ordered By: Dr. Chuck Cadet Primary Care Provider: Hasmukh Patton Referrals: Hasmukh Patton DO [Primary Care Provider] - Disposition Disposition: Home, Self Care Discharge Date/Time: 09/06/21 00:31
[2021-09-06 00:01] VITALS: BP 137/75; PULSE 81; RESP 18; O2SAT 99
== END 2021-09-06 00:31 | disposition home or self-care (01) ==
PROVIDERS: Emergency Provider Emergency Medicine; PCP Family Medicine; Visit Provider Emergency Medicine
DX: G57.01 Lesion of sciatic nerve, right lower limb (principal); J44.9 Chronic obstructive pulmonary disease, unspecified; S39.012A Strain of muscle, fascia and tendon of lower back, initial encounter; X58.XXXA Exposure to other specified factors, initial encounter; I25.10 Atherosclerotic heart disease of native coronary artery without angina pectoris; I10 Essential (primary) hypertension; F17.210 Nicotine dependence, cigarettes, uncomplicated; E78.5 Hyperlipidemia, unspecified; F12.90 Cannabis use, unspecified, uncomplicated; Z79.899 Other long term (current) drug therapy
CPT/HCPCS: 80048; 81001; 85025; 96361; 96374; 96375; 99283; J7030; A4216; J2405

== ENCOUNTER 2021-10-25 01:09 | Emergency (ER) | payer MEDICAID, SELFPAY ==
[2021-10-25 01:10] VITALS: BP 137/90; PULSE 87; RESP 14; TEMP 36.7; O2SAT 97; BMI 27.3
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
== END 2021-10-25 02:16 | disposition home or self-care (01) ==
PROVIDERS: Emergency Provider Emergency Medicine; PCP Family Medicine; Visit Provider Emergency Medicine
DX: M25.50 Pain in unspecified joint (principal); M06.9 Rheumatoid arthritis, unspecified; J44.9 Chronic obstructive pulmonary disease, unspecified; U09.9 Post COVID-19 condition, unspecified; I25.10 Atherosclerotic heart disease of native coronary artery without angina pectoris; I10 Essential (primary) hypertension; E78.5 Hyperlipidemia, unspecified; F17.210 Nicotine dependence, cigarettes, uncomplicated; Z95.1 Presence of aortocoronary bypass graft; Z79.82 Long term (current) use of aspirin; Z79.899 Other long term (current) drug therapy
CPT/HCPCS: 99282

== ENCOUNTER 2021-11-15 02:07 | Emergency (ER) | payer MEDICAID, SELFPAY ==
[2021-11-15] VITALS (7 sets, daily range): BP systolic 108–117; BP diastolic 73–99; PULSE 74–94; RESP 16–24; TEMP 35.8–37.1; O2SAT 92–96; BMI 27.5
--- NOTE | 2021-11-15 02:37 | RAD_ITS ---
EXAM: XR CHEST, 1 VIEW CLINICAL INDICATION: cough TECHNIQUE: Frontal view of the chest. This report was created using [employer] report generation technology. COMPARISON: 03/16/2021. FINDINGS: LUNGS AND PLEURAL SPACES: Unremarkable. No consolidation or edema. No pneumothorax. No effusion. HEART: Unremarkable. Cardiac silhouette not enlarged. MEDIASTINUM: Surgical changes of the mediastinum. BONES/JOINTS: Unremarkable. SOFT TISSUES: Unremarkable. RAD/Chest 1 View (Portable) IMPRESSION: No acute findings in the chest. Electronically Signed: Samy Llanes MD at 4:29 EDT ,
--- NOTE | 2021-11-15 02:38 | EKG12_ITS ---
Test Reason : SOB Blood Pressure : / mmHG Vent. Rate : 074 BPM Atrial Rate : 074 BPM P-R Int : 184 ms QRS Dur : 142 ms QT Int : 438 ms P-R-T Axes : 067 -30 039 degrees QTc Int : 486 ms Normal sinus rhythm Left axis deviation Right bundle branch block Inferior infarct , age undetermined, cannot be excluded Abnormal ECG Confirmed by CHYNA ENCISO, LEILA ([id number]), editor producer GET FERRER ([id number]) on 11/17/2021 9:55:16 AM Referred By: MERY Confirmed By:LEILA CLEMENTE MD
[2021-11-15 03:02] LABS: Absolute Lymphocyte Count 3.93 X10^3/uL (0.83-4.51); Absolute Neutrophil Count 7.2 X10^3/uL (2.0-7.7); Basophil# 0.08 X10^3/uL; Basophil% 0.6 % (0-1); Eosinophil# 0.33 X10^3/uL; Eosinophils% 2.6 % (0-5); Hematocrit 35.5 % (37-47); Hemoglobin 11.8 g/dL (12.0-15.0); Lymphocyte # 3.93 X10^3/ul (0.83-4.51); Lymphocyte % 31.5 % (19-41); Mean Corp Hgb Conc 33.2 g/dL (32-36); Mean Corpuscular Hgb 31.5 pg (27.0-32.0); Mean Corpuscular Volume 94.7 fL (81-99); Mean Platelet Vol. 9.4 fl (6.2-12.0); Monocyte% 7.2 % (0-10); NRBC Flagged by Analyzer 0 % (0-5); Neutrophil # 7.17 X10^3/uL (2.7-7.7); Neutrophil % 57.6 % (47-70); Platelet Count 299 K/mm3 (150-450); RBC Distribution Width CV 11.9 % (11.6-14.6); RBC Distribution Width SD 41.1 fl (35.1-43.9); Red Blood Count 3.75 M/mm3 (4.2-5.4); White Blood Count 12.5 K/mm3 (4.4-11.0)
--- NOTE | 2021-11-15 03:09 | EX.ED.DYSGE1 ---
HPI History of Present Illness Chief Complaint: Shortness of Breath Informant: patient Narrative Narrative: Patient comes in with concern for pneumonia. She states that 13 days ago she started with some nausea vomiting. She had myalgias. She had congestion. She had cough. It is progressed since then. The nausea and vomiting and is gone. She never got diarrhea. But she has a lot of myalgias headache and she is coughing and bringing up yellow sputum. She is not having chest pain. No hemoptysis. Patient states she has had 2 negative COVID tests at home. This past she did to contest about an hour apart and both of those were positive. She also has been seeing [facility] in [place] for COVID she had back in January. She has had cough, headache, myalgias and mostly significant malaise ever since she had COVID. She has those symptoms now but they are slightly increased from her baseline. Patient once PAXLOVID for COVID. She called her primary doctor and she was told that this is for the first 5 days of symptoms. But she states she started symptoms 13 days ago but her positive test was just 5 days ago. I explained to her that the timing of the illness starts from the symptom onset not the date of testing. Patient has not been vaccinated against Calmurid. She did receive monoclonal treatment with her first case of COVID back in January. She was told she would have had to wait a while to get vaccine but she just never went and got this. Patient is still smoking and was counseled on the need to quit. [facility] Medical History AC (acromioclavicular) joint bone spurs Acute exacerbation of chronic bronchitis Acute respiratory failure Anxiety Asthma Atherosclerotic heart disease of [place] coronary artery without angina pectoris Chronic bronchitis COPD (chronic obstructive pulmonary disease) Essential hypertension Fatty liver GERD (gastroesophageal reflux disease) Gout History of myocardial infarction History of retained foreign body fully removed Hyperlipemia Lupus Osteoarthritis Pulmonary embolism Seasonal allergies Solitary lung nodule Swelling of lower leg Home Medications aspirin 81 mg tablet,delayed release 81 mg PO QHS #30 tab 07/14/20 [Rx Last Taken Unknown] nitroglycerin 0.4 mg sublingual tablet 0.4 mg SUBLINGUAL Q5-15M PRN #25 tab 07/14/20 [Rx Last Taken Unknown] ondansetron 4 mg PO Q8H PRN PRN #10 tab 07/20/20 [Rx Last Taken Unknown] omeprazole 40 mg capsule,delayed release 40 mg PO DAILY #90 cap 11/18/20 [Rx Last Taken Unknown] trazodone 50 mg tablet 50 mg PO QHS #90 tab 11/18/20 [Rx Last Taken Unknown] fluticasone 250 mcg-salmeterol 50 mcg/dose blistr powdr for inhalation 1 inh INHALATION BID #60 ea 05/07/21 [Rx Last Taken Unknown] fluticasone propionate 50 mcg/actuation nasal spray,suspension 2 spray INTRANASAL QDAY #1 device 05/07/21 [Rx Last Taken Unknown] ProAir HFA 90 mcg/actuation aerosol inhaler 2 puff INHALATION Q6H PRN #8.5 g NS 06/11/21 [Rx Last Taken Unknown] amlodipine 5 mg tablet 5 mg PO QHS #90 tab 07/13/21 [Rx Last Taken Unknown] losartan 50 mg tablet 50 mg PO QHS #90 tab 07/13/21 [Rx Last Taken Unknown] metoprolol succinate 25 mg tablet,extended release 24 hr 25 mg PO QHS #90 tab 07/13/21 [Rx Last Taken Unknown] loratadine [Claritin] 10 mg PO QHS 11/15/21 [History Last Taken Unknown] lorazepam 0.5 mg PO DAILY PRN PRN 11/15/21 [History Last Taken Unknown] nebulizer and compressor [[place] Choice Nebulizer] #1 ea 11/15/21 [Rx Last Taken Unknown] rosuvastatin 5 mg PO QHS 11/15/21 [History Last Taken Unknown] Allergy/AdvReac Type Severity Reaction Status Date / Time ketorolac [From Toradol] Allergy Itching Verified 11/15/21 02:16 acetaminophen [From Vicodin] AdvReac Itching Verified 11/15/21 02:16 hydrocodone [From Vicodin] AdvReac Itching Verified 11/15/21 02:16 oral antibiotics AdvReac Upset Uncoded 10/25/21 01:10 Stomach Family History Mother Heart disease Aunt Heart disease Grandmother Heart disease Grandfather Heart disease Surgical History H/O section History of carpal tunnel surgery History of coronary artery bypass surgery (~05/24/15) History of tonsillectomy and adenoidectomy History of tubal ligation Hx of breast reduction, elective Polyps from throat removed S/P trigger finger release S/P triple vessel bypass Social History Smoking Status: Current every day smoker tobacco type: cigarettes alcohol intake: current substance use type: marijuana what type of physical activity do you participate in: walking frequency: 5-6 times per week ROS ROS ED Constitutional Constitutional ED: Reports subjective; Denies fever(s) or sweats Eyes Eyes: Denies blurry vision or change in vision ENT ENT ED: Reports ear pain, rhinorrhea and other Details: Headache. ; Denies sore throat Cardiovascular Cardiovascular: Denies chest pain, palpitations or racing heartbeat Respiratory/Chest Respiratory/Chest: Reports cough, sputum and other Details: She has had cough sputum and wheezing. She has baseline dyspnea but it got a little worse. But her nebulizer also stopped working about 3 or 4 days ago. Gastrointestinal Gastrointestinal: Reports other Details: She had nausea vomiting on the first day or so of her symptoms but gone now. ; Denies abdominal pain, diarrhea, nausea or vomiting Genitourinary Genitourinary ED: Denies dysuria Musculoskeletal Musculoskeletal: Reports myalgias Integumentary Denies rash Neurologic Neurologic: Reports headache(s); Denies paresthesias or weakness Psychiatric Psychiatric: Reports anxiety and depression Endocrine Endocrinology: Denies polydipsia or polyuria Allergic/Immunologic Allergic/Immunologic ED: Denies urticaria EXAM Physical Exam Const Vital Signs: 11/15/21 02:09 11/15/21 02:13 11/15/21 02:21 Temperature 98.7 F 96.5 F L Temperature Source Oral Temporal Pulse Rate 90 94 Respiratory Rate 18 24 H Respiratory Effort Short of Breath Respiratory Depth Normal Respiratory Pattern Normal Blood Pressure 117/99 H 117/99 H Blood Pressure Mean 105 105 Pulse Ox 96 Oxygen Delivery Method Room Air Room Air Room Air 11/15/21 03:26 11/15/21 04:08 11/15/21 05:13 Temperature 97.5 F L Temperature Source Temporal Pulse Rate 74 79 76 Respiratory Rate 16 16 16 Respiratory Effort Respiratory Depth Respiratory Pattern Blood Pressure 109/78 Blood Pressure Mean 88 Pulse Ox 93 95 Oxygen Delivery Method 11/15/21 06:00 Temperature Temperature Source Pulse Rate 76 Respiratory Rate 16 Respiratory Effort Respiratory Depth Respiratory Pattern Blood Pressure 108/73 Blood Pressure Mean 84 Pulse Ox 92 Oxygen Delivery Method Room Air Positive well nourished and well developed Constitutional Narrative: Patient carries on a normal conversation. No desaturations during this. Heart rate and respiratory rate is normal. General Appearance ED: well developed and NAD; Negative for cyanotic or diaphoretic HEENT Reports moist mucous membranes Negative for trauma or tenderness Eyes EOMs intact bilaterally Neck no lymphadenopathy and no JVD Chest Wall inspection of chest normal Resp normal respiratory effort Resp Narrative: Patient does have some coarse breath sounds more at the right base. She has just a hint of expiratory wheeze at the end. But she is still moving pretty good air. Auscultation: rhonchi and wheezes Cardio regular rate and regular rhythm GI normal to inspection, nondistended, normoactive bowel sounds and non-tender Palpation: soft Back/Spine no CVA tenderness Extremity normal to inspection Extremity Narrative: No edema, cords, tenderness along the deep venous system, distended veins or asymmetry. General Extremety ED: Negative for edema or tenderness General Extremity: Negative for edema Neuro oriented x3 Sensorium / Orientation: alert Psych mental status grossly normal Skin no rashes or lesions noted MDM MDM MDM Narrative Medical decision making narrative: Patient's CBC shows minimal anemia. She has a very mild elevation of white count at 12.5. Platelets are normal. Electrolytes show mildly decreased potassium at 3.2. Remainder of electrolytes are overall unremarkable. COVID PCR was negative. Influenza's were negative. Chest x-ray looked at by me and read by radiology shows no sign of acute infiltrative process. Patient's vitals are still normal. I talked with her about options. I stated that she does have a crossover of symptoms of both an acute viral type illness along with long-haul her syndrome. She is now complaining that her head is very painful. Is been hurting ever since January. But is gotten worse. She cannot tolerate all of her symptoms anymore. I explained that we will get a scan of her head. She is not having major nasal drainage or facial tenderness like sinusitis. We also talked about a short course of steroids that she is having some wheezing. She does not want steroids because they make her stay up. She states she cannot tolerate steroids either. I will write for a nebulizer. At this time we are pending her CT we will discuss issues with her again. I have looked at her CT images. I see no sign of sinusitis. I do not see any marked abnormalities. However, I would like to wait for the final reading by radiology. Patient now states she wants to go. She is just tired of feeling sick ever since she had COVID in January. At this time I do not think she qualifies for Paxlovid. I do not think she needs another course of antibiotics. She finished azithromycin about 4 days ago. I offered a short burst of steroids that might help her wheezing but she does not want this. I will see if I can write for another nebulizer for her. She has all of her other medicines at home. Lab Data Attestation: I reviewed the patient's lab results. Labs: Laboratory Results - last 24 hr 11/15/21 11/15/21 11/15/21 02:45 02:45 03:06 WBC 12.5 H RBC 3.75 L Hgb 11.8 L Hct 35.5 L MCV 94.7 MCH 31.5 MCHC 33.2 RDW Std Deviation 41.1 RDW Coeff of Louie 11.9 Plt Count 299 MPV 9.4 Immature Gran % (Auto) 0.500 Neut % (Auto) 57.6 Lymph % (Auto) 31.5 [place] % (Auto) 7.2 Eos % (Auto) 2.6 Baso % (Auto) 0.6 Absolute Neuts (auto) 7.2 Absolute Lymphs (auto) 3.93 Nucleated RBC % 0 Sodium 138 Potassium 3.2 L Chloride 104 Carbon Dioxide 30.0 Anion Gap 4 L BUN 3 L Creatinine 0.54 L Estim Creat Clear Calc 107.17 Est GFR (MDRD) Af Amer 152 Est GFR (MDRD) Non-Af 126 BUN/Creatinine Ratio 5.6 L Glucose 117 H Calcium 8.9 COVID-19 (CAITY) Not Detected Radiography Diagnostic Testing: Clinical Impression(s) from Imaging Studies Chest X-Ray 11/15/21 02:37 IMPRESSION: No acute findings in the chest. Electronically Signed: Samy Llanes MD at 4:29 EDT , Discharge Plan Triage Chief Complaint: Shortness of Breath ED Provider: Low Limon Dx/Rx/DC Orders Clinical Impression: Viral URI with cough, COVID-19 long igor Instructions: ED URI, Viral W/ Wheezing (Adult) Prescriptions: New (DME) nebulizer and compressor [Gallant Choice Nebulizer] Device See Rx Instructions .ROUTE .MEDSUPPLY Qty: 1 RF: 0 No Action omeprazole 40 mg capsule,delayed release(DR/EC) 40 mg PO DAILY Qty: 90 RF: 3 trazodone 50 mg tablet 50 mg PO QHS Qty: 90 RF: 3 ondansetron 4 MG tablet 4 mg PO Q8H PRN PRN (Reason: Nausea) Qty: 10 RF: 0 lorazepam 0.5 mg tablet 0.5 mg PO DAILY PRN PRN (Reason: Anxiety) RF: 0 loratadine [Claritin] 10 mg tablet 10 mg PO QHS RF: 0 rosuvastatin 5 mg tablet 5 mg PO QHS RF: 0 aspirin 81 mg tablet,delayed release (DR/EC) 81 mg PO QHS Qty: 30 RF: 11 nitroglycerin 0.4 mg tablet, sublingual 0.4 mg SUBLINGUAL Q5-15M PRN (Reason: chest pain) Qty: 25 RF: 3 fluticasone propion-salmeterol [Advair Diskus] 250-50 mcg/dose blister with device 1 inh inhalation BID Qty: 60 RF: 1 fluticasone propionate [Flonase Allergy Relief] 50 mcg/actuation spray,suspension 2 spray intranasal QDAY Qty: 1 RF: 3 ProAir HFA 90 mcg/actuation HFA aerosol inhaler 2 puff INHALATION Q6H PRN (Reason: Sob &/Or Wheezing) Qty: 8.5 RF: 6 metoprolol succinate 25 mg tablet extended release 24 hr 25 mg PO QHS Qty: 90 RF: 3 losartan 50 mg tablet 50 mg PO QHS Qty: 90 RF: 3 amlodipine [Norvasc] 5 mg tablet 5 mg PO QHS Qty: 90 RF: 3 Primary Care Provider: Hasmukh Patton Referrals: Hasmukh Patton DO [Primary Care Provider] - 1-2 Days if not improving Disposition Disposition: Against Medical Advice Discharge Date/Time: 11/15/21 06:31
[2021-11-15 03:11] LABS: Anion Gap 4 (5-15); BUN 3 mg/dL (7-18); BUN/Creat Ratio 5.6 RATIO (10-20); Calcium,Total 8.9 mg/dL (8.5-10.1); Chloride 104 mmol/L (98-107); Creatinine, Serum 0.54 mg/dL (0.55-1.02); EST Glomerular Filtration Rate 126 mL/min (>60); Est Glom Filt Rate - Afr Amer 152 mL/min (>60); Estimated Creatinine Clearance 107.17 ml/min; Glucose 117 mg/dL (74-106); Potassium 3.2 mmol/L (3.5-5.1); Sodium Level 138 mmol/L (136-145)
[2021-11-15] MEDS: Ipratropium/Albuterol Sulfate 3 ML AMPUL.NEB INHALATION (03:24)
--- NOTE | 2021-11-15 03:28 | CPS ---
RT collected two different nasopharyngeal swabs for a COVID PCR and Rapid FLU
[2021-11-15] MEDS: oxyCODONE 5 MG Tablet PO (03:40)
--- NOTE | 2021-11-15 05:37 | CT_ITS ---
EXAM: CT HEAD WITHOUT INTRAVENOUS CONTRAST CLINICAL INDICATION: headache TECHNIQUE: Multiple axial images were obtained of the head without intravenous contrast. This CT exam was performed using one or more of the following dose reduction techniques: automated exposure control, adjustment of the mA and/or kV according to patient size, and/or use of iterative reconstruction technique. This report was created using [employer] report [employer] technology. COMPARISON: None. FINDINGS: BRAIN AND EXTRA-AXIAL SPACES: Unremarkable. No intra- or extra-axial hemorrhage. No evidence of acute infarct. No intracranial mass or mass effect. There is preservation of the donis/white matter interface. Posterior fossa structures are unremarkable. Ventricles are appropriate for age. No hydrocephalus. Basal cisterns are patent. BONES/JOINTS: Unremarkable. No discrete lytic or blastic abnormalities. SINUSES: Unremarkable as visualized. Clear. MASTOID AIR CELLS: Unremarkable. Clear. ORBITS: Visualized globes, extraocular muscles, optic nerves and retrobulbar fat appear unremarkable. CT/Brain/Head without Contrast IMPRESSION: Negative head/brain CT without intravenous contrast. Electronically Signed: Samy Llanes MD at 6:26 EDT ,
--- NOTE | 2021-11-15 06:26 | ED.RN ---
patient asked to speak to this RN asking what the plan is for her, informed that we are waiting on Brain CT results d/t her c/o continued headache. patient states that she needs to leave because she can't just sit around here waiting and her neighbor has already been outside waiting for a long time. informed Dr Limon, patient given, educated on, and signed AMA form.
== END 2021-11-15 06:31 | disposition left against medical advice (07) ==
PROVIDERS: Emergency Provider Emergency Medicine; PCP Family Medicine; Visit Provider Emergency Medicine
DX: J06.9 Acute upper respiratory infection, unspecified (principal); U09.9 Post COVID-19 condition, unspecified; I25.10 Atherosclerotic heart disease of native coronary artery without angina pectoris; I25.2 Old myocardial infarction; I10 Essential (primary) hypertension; E78.5 Hyperlipidemia, unspecified; K21.9 Gastro-esophageal reflux disease without esophagitis; M19.90 Unspecified osteoarthritis, unspecified site; F17.210 Nicotine dependence, cigarettes, uncomplicated; Z95.1 Presence of aortocoronary bypass graft; Z28.310 Unvaccinated for COVID-19; Z28.29 Immunization not carried out because of patient decision for other reason; Z53.29 Procedure and treatment not carried out because of patient's decision for other reasons; Z79.82 Long term (current) use of aspirin; Z79.899 Other long term (current) drug therapy
CPT/HCPCS: 70450; 71045; 80048; 85025; 87635; 87804; 93005; 94640; 99283; A4216; U0003; U0005

== ENCOUNTER 2022-02-16 01:39 | Emergency (ER) | payer MEDICAID, SELFPAY ==
[2022-02-16 01:39] VITALS: BP 170/97; PULSE 81; RESP 16; TEMP 36.5; O2SAT 98; BMI 25.7
--- NOTE | 2022-02-16 02:00 | EX.ED.DYSGE1 ---
HPI History of Present Illness Chief Complaint: Back Detail of Chief Complaint: Back pain and scabies Informant: patient Onset/Context/Timing Onset: Yesterday Narrative Narrative: Patient presents secondary to back pain that started yesterday. She states she was exposed to her niece who works at a daycare or when the children had scabies. Her niece developed scabies. She spent the night at the patient's house and patient states that she broke out in a rash across her lower back. She ordered some tea tree oil from [employer] to treat this. The instructions stated that she needed to rub it into her skin all over her body. Last night she was trying to rub it well into her mid back and when twisting she felt a spasm in her back and now has back pain. She states she has tried Tylenol and ibuprofen without improvement. She is leaving town tomorrow to go out of [facility] for a . [facility] Medical History AC (acromioclavicular) joint bone spurs Acute exacerbation of chronic bronchitis Acute respiratory failure Anxiety Asthma Atherosclerotic heart disease of [place] coronary artery without angina pectoris Chronic bronchitis COPD (chronic obstructive pulmonary disease) Essential hypertension Fatty liver GERD (gastroesophageal reflux disease) Gout History of myocardial infarction History of retained foreign body fully removed Hyperlipemia Lupus Osteoarthritis Pulmonary embolism Seasonal allergies Solitary lung nodule Swelling of lower leg Home Medications aspirin 81 mg tablet,delayed release 81 mg PO QHS #30 tabs 07/14/20 [Rx Last Taken Unknown] nitroglycerin 0.4 mg sublingual tablet 0.4 mg sublingual Q5-15M PRN chest pain #25 tabs 07/14/20 [Rx Last Taken Unknown] ondansetron 4 mg disintegrating tablet 4 mg PO Q8H PRN PRN Nausea #10 tabs 07/20/20 [Rx Last Taken Unknown] omeprazole 40 mg capsule,delayed release 40 mg PO DAILY #90 caps 11/18/20 [Rx Last Taken Unknown] trazodone 50 mg tablet 50 mg PO QHS insomnia #90 tabs 11/18/20 [Rx Last Taken Unknown] fluticasone 250 mcg-salmeterol 50 mcg/dose blistr powdr for inhalation (Advair Diskus) 1 inh inhalation BID COPD #60 ea 05/07/21 [Rx Last Taken Unknown] fluticasone propionate 50 mcg/actuation nasal spray,suspension (Flonase Allergy Relief) 2 spray intranasal QDAY #1 device 05/07/21 [Rx Last Taken Unknown] ProAir HFA 90 mcg/actuation aerosol inhaler (albuterol sulfate) 2 puff inhalation Q6H PRN Sob &/Or Wheezing #8.5 grams 06/11/21 [Rx Last Taken Unknown] amlodipine 5 mg tablet (Norvasc) 5 mg PO QHS #90 tabs 07/13/21 [Rx Last Taken Unknown] losartan 50 mg tablet 50 mg PO QHS #90 tabs 07/13/21 [Rx Last Taken Unknown] metoprolol succinate 25 mg tablet,extended release 24 hr 25 mg PO QHS #90 tabs 07/13/21 [Rx Last Taken Unknown] loratadine 10 mg tablet (Claritin) 10 mg PO QHS allergies 11/15/21 [History Last Taken Unknown] lorazepam 0.5 mg tablet 0.5 mg PO DAILY PRN PRN Anxiety 11/15/21 [History Last Taken Unknown] nebulizer and compressor ([place] Choice Nebulizer) #1 ea 11/15/21 [Rx Last Taken Unknown] rosuvastatin 5 mg tablet 5 mg PO QHS 11/15/21 [History Last Taken Unknown] lidocaine 5 % topical patch (Lidoderm) 1 patch topical DAILY #15 ea 02/16/22 [Rx Last Taken Unknown] permethrin 5 % topical cream 1 applic topical Q14D 2 doses #60 grams 02/16/22 [Rx Last Taken Unknown] tramadol 50 mg tablet 50 mg PO Q8H PRN pain #10 tabs 02/16/22 [Rx Last Taken Unknown] Allergy/AdvReac Type Severity Reaction Status Date / Time ketorolac [From Toradol] Allergy Itching Verified 02/16/22 01:41 acetaminophen [From Vicodin] AdvReac Itching Verified 02/16/22 01:41 hydrocodone [From Vicodin] AdvReac Itching Verified 02/16/22 01:41 oral antibiotics AdvReac Upset Uncoded 02/16/22 01:41 Stomach Family History Mother Heart disease Aunt Heart disease Grandmother Heart disease Grandfather Heart disease Surgical History H/O section History of carpal tunnel surgery History of coronary artery bypass surgery (~05/24/15) History of tonsillectomy and adenoidectomy History of tubal ligation Hx of breast reduction, elective Polyps from throat removed S/P trigger finger release S/P triple vessel bypass Social History Smoking Status: Current every day smoker tobacco type: cigarettes alcohol intake: current substance use type: marijuana what type of physical activity do you participate in: walking frequency: 5-6 times per week ROS ROS ED Constitutional Constitutional ED: Denies chills or fever(s) Eyes Eyes: Denies change in vision or discharge from eye(s) ENT ENT ED: Denies discharge from eye(s), rhinorrhea or sore throat Cardiovascular Cardiovascular: Denies chest pain or palpitations Respiratory/Chest Respiratory/Chest: Denies cough or dyspnea Gastrointestinal Gastrointestinal: Denies abdominal pain, diarrhea, nausea or vomiting Genitourinary Genitourinary ED: Denies difficulty urinating or dysuria Musculoskeletal Musculoskeletal: Reports back pain; Denies extremity pain Integumentary Reports rash; Denies Abrasions Neurologic Neurologic: Denies headache(s) or weakness Allergic/Immunologic Allergic/Immunologic ED: Denies lip swelling or urticaria EXAM Physical Exam Const Vital Signs: 02/16/22 01:39 Temperature 97.7 F L Temperature Source Temporal Pulse Rate 81 Respiratory Rate 16 Blood Pressure 170/97 H Blood Pressure Mean 121 Pulse Ox 98 Oxygen Delivery Method Room Air Positive well nourished and well developed General Appearance ED: well developed HEENT Reports normocephalic and head/scalp atraumatic Eyes PERRL and EOMs intact bilaterally Neck supple Chest Wall inspection of chest normal and palpation of chest normal Resp normal respiratory effort and clear to auscultation bilaterally Cardio regular rate and regular rhythm GI normal to inspection, nondistended, normoactive bowel sounds Palpation: soft Back/Spine Back/Spine Narrative: Reproducible tenderness in the mid to lower thoracic paraspinal muscles bilaterally. No erythema or point tenderness. Extremity normal to inspection Neuro oriented x3 and no sensory deficits noted Sensorium / Orientation: alert Motor Exam: strength 5/5 throughout Psych mental status grossly normal Skin Skin Narrative: Approximately 6 scattered scabbed lesions across her posterior lower back. Patient believes this is from scabies. I do not see any burrowing sam at this time. MDM MDM MDM Narrative Medical decision making narrative: Patient states that she has not able to take muscle relaxers. I will give her a single oxycodone here along with a Lidoderm patch. She is to continue ibuprofen at home and I will write her for Lidoderm patches and a few tramadol for breakthrough pain. Patient will also be given permethrin cream to use secondary to known exposure to scabies. Discharge Plan Triage Chief Complaint: Back ED Provider: Hilda Corbin Dx/Rx/DC Orders Clinical Impression: Back strain, Scabies exposure Instructions: ED Back Spasm, No Trauma, ED Scabies Prescriptions: New permethrin 5 % cream 1 applic topical Q14D Qty: 60 0RF Rx Instructions: apply second treatment 14 days after first treatment if live lice remain lidocaine [Lidoderm] 5 % adhesive patch,medicated 1 patch topical DAILY Qty: 15 0RF Rx Instructions: leave on most painful area for up to 12 hrs tramadol 50 mg tablet 50 mg PO Q8H PRN (Reason: pain) Qty: 10 0RF No Action omeprazole 40 mg capsule,delayed release(DR/EC) 40 mg PO DAILY Qty: 90 3RF trazodone 50 mg tablet 50 mg PO QHS Qty: 90 3RF ondansetron 4 MG tablet 4 mg PO Q8H PRN PRN (Reason: Nausea) Qty: 10 0RF lorazepam 0.5 mg tablet 0.5 mg PO DAILY PRN PRN (Reason: Anxiety) loratadine [Claritin] 10 mg tablet 10 mg PO QHS rosuvastatin 5 mg tablet 5 mg PO QHS (DME) nebulizer and compressor [[place] Choice Nebulizer] Device See Rx Instructions .ROUTE .MEDSUPPLY Qty: 1 0RF Rx Instructions: As directed aspirin 81 mg tablet,delayed release (DR/EC) 81 mg PO QHS Qty: 30 11RF nitroglycerin 0.4 mg tablet, sublingual 0.4 mg SUBLINGUAL Q5-15M PRN (Reason: chest pain) Qty: 25 3RF Rx Instructions: until response; do not exceed 3 doses per episode fluticasone propion-salmeterol [Advair Diskus] 250-50 mcg/dose blister with device 1 inh inhalation BID Qty: 60 1RF fluticasone propionate [Flonase Allergy Relief] 50 mcg/actuation spray,suspension 2 spray intranasal QDAY Qty: 1 3RF Rx Instructions: administer into each nostril ProAir HFA 90 mcg/actuation HFA aerosol inhaler 2 puff INHALATION Q6H PRN (Reason: Sob &/Or Wheezing) Qty: 8.5 6RF metoprolol succinate 25 mg tablet extended release 24 hr 25 mg PO QHS Qty: 90 3RF losartan 50 mg tablet 50 mg PO QHS Qty: 90 3RF amlodipine [Norvasc] 5 mg tablet 5 mg PO QHS Qty: 90 3RF Primary Care Provider: Hasmukh Patton Referrals: Hasmukh Patton DO [Primary Care Provider] - 1 Week if not improving Disposition Disposition: Home, Self Care
[2022-02-16] MEDS: Lidocaine 5% Patch 1 PATCH TOPICAL (02:09)
[2022-02-16] MEDS: oxyCODONE 5 MG Tablet PO (02:10)
== END 2022-02-16 02:46 | disposition home or self-care (01) ==
LOC: ED 02:10
PROVIDERS: Emergency Provider Emergency Medicine; PCP Family Medicine; Visit Provider Emergency Medicine
DX: S39.012A Strain of muscle, fascia and tendon of lower back, initial encounter (principal); J44.9 Chronic obstructive pulmonary disease, unspecified; X50.1XXA Overexertion from prolonged static or awkward postures, initial encounter; Y93.89 Activity, other specified; Y99.8 Other external cause status; Z20.7 Contact with and (suspected) exposure to pediculosis, acariasis and other infestations; E78.5 Hyperlipidemia, unspecified; I10 Essential (primary) hypertension; I25.10 Atherosclerotic heart disease of native coronary artery without angina pectoris; F17.210 Nicotine dependence, cigarettes, uncomplicated; Z95.1 Presence of aortocoronary bypass graft; Z79.82 Long term (current) use of aspirin; Z79.899 Other long term (current) drug therapy
CPT/HCPCS: 99283

== ENCOUNTER 2022-05-11 22:02 | Emergency (ER) | payer MEDICAID, SELFPAY ==
[2022-05-11 22:03] VITALS: BP 137/92; PULSE 91; RESP 16; TEMP 36.4; O2SAT 100; BMI 24.1
--- NOTE | 2022-05-11 23:20 | ED.VIS.DENTA ---
HPI History of Present Illness Chief Complaint: Dental Informant: patient Onset/Context/Timing Onset: Weeks and Month(s) Context: Gradual Onset Timing: Continuous Current Severity: Moderate Maximum Severity: Moderate Associated Symptoms Assocated Symptom - Dental: Negative for fever, jaw swelling, face swelling, cold sensitivity or hot sensitivity Narrative Narrative: 57-year-old female complaining of chronic left upper tooth dental pain. She had a root canal which she states did not work. They went and place a crown but she said insurance will not cover. She has chronic pain in her left upper tooth. She also states she is having joint pain from her rheumatoid arthritis flare. She called her arthritis physician from the [facility] rhetorically going to the ER. States she has been on high-dose steroids for the last month and methotrexate. Prior similar symptoms: Yes Recent Illness/Hospitalization: No PFSH PFSH Medical History AC (acromioclavicular) joint bone spurs Acute exacerbation of chronic bronchitis Acute respiratory failure Anxiety Asthma Atherosclerotic heart disease of [place] coronary artery without angina pectoris Chronic bronchitis COPD (chronic obstructive pulmonary disease) Essential hypertension Fatty liver GERD (gastroesophageal reflux disease) Gout History of myocardial infarction History of retained foreign body fully removed Hyperlipemia Lupus Osteoarthritis Pulmonary embolism Seasonal allergies Solitary lung nodule Swelling of lower leg Home Medications aspirin 81 mg tablet,delayed release 81 mg PO QHS #30 tabs 07/14/20 [Rx Last Taken Unknown] nitroglycerin 0.4 mg sublingual tablet 0.4 mg sublingual Q5-15M PRN chest pain #25 tabs 07/14/20 [Rx Last Taken Unknown] ondansetron 4 mg disintegrating tablet 4 mg PO Q8H PRN PRN Nausea #10 tabs 07/20/20 [Rx Last Taken Unknown] omeprazole 40 mg capsule,delayed release 40 mg PO DAILY #90 caps 11/18/20 [Rx Last Taken Unknown] trazodone 50 mg tablet 50 mg PO QHS insomnia #90 tabs 11/18/20 [Rx Last Taken Unknown] fluticasone 250 mcg-salmeterol 50 mcg/dose blistr powdr for inhalation (Advair Diskus) 1 inh inhalation BID COPD #60 ea 05/07/21 [Rx Last Taken Unknown] fluticasone propionate 50 mcg/actuation nasal spray,suspension (Flonase Allergy Relief) 2 spray intranasal QDAY #1 device 05/07/21 [Rx Last Taken Unknown] ProAir HFA 90 mcg/actuation aerosol inhaler (albuterol sulfate) 2 puff inhalation Q6H PRN Sob &/Or Wheezing #8.5 grams 06/11/21 [Rx Last Taken Unknown] amlodipine 5 mg tablet (Norvasc) 5 mg PO QHS #90 tabs 07/13/21 [Rx Last Taken Unknown] losartan 50 mg tablet 50 mg PO QHS #90 tabs 07/13/21 [Rx Last Taken Unknown] metoprolol succinate 25 mg tablet,extended release 24 hr 25 mg PO QHS #90 tabs 07/13/21 [Rx Last Taken Unknown] loratadine 10 mg tablet (Claritin) 10 mg PO QHS allergies 11/15/21 [History Last Taken Unknown] lorazepam 0.5 mg tablet 0.5 mg PO DAILY PRN PRN Anxiety 11/15/21 [History Last Taken Unknown] nebulizer and compressor ([place] Choice Nebulizer) #1 ea 11/15/21 [Rx Last Taken Unknown] rosuvastatin 5 mg tablet 5 mg PO QHS 11/15/21 [History Last Taken Unknown] lidocaine 5 % topical patch (Lidoderm) 1 patch topical DAILY #15 ea 02/16/22 [Rx Last Taken Unknown] permethrin 5 % topical cream 1 applic topical Q14D 2 doses #60 grams 02/16/22 [Rx Last Taken Unknown] tramadol 50 mg tablet 50 mg PO Q8H PRN pain #10 tabs 02/16/22 [Rx Last Taken Unknown] Allergy/AdvReac Type Severity Reaction Status Date / Time ketorolac [From Toradol] Allergy Itching Verified 05/11/22 22:05 acetaminophen [From Vicodin] AdvReac Itching Verified 05/11/22 22:05 hydrocodone [From Vicodin] AdvReac Itching Verified 05/11/22 22:05 oral antibiotics AdvReac Upset Uncoded 05/11/22 22:05 Stomach Family History Mother Heart disease Aunt Heart disease Grandmother Heart disease Grandfather Heart disease Surgical History H/O section History of carpal tunnel surgery History of coronary artery bypass surgery (~05/24/15) History of tonsillectomy and adenoidectomy History of tubal ligation Hx of breast reduction, elective Polyps from throat removed S/P trigger finger release S/P triple vessel bypass Social History Smoking Status: Current every day smoker tobacco type: cigarettes alcohol intake: current substance use type: marijuana what type of physical activity do you participate in: walking frequency: 5-6 times per week ROS ROS ED ROS Narrative Cough. Review of Systems ROS Unobtainable: Denies due to encephalopathy Constitutional Constitutional ED: Denies chills or fever(s) Eyes Eyes: Denies blurry vision ENT ENT ED: Reports rhinorrhea; Denies ear pain Cardiovascular Cardiovascular: Denies chest pain or palpitations Respiratory/Chest Respiratory/Chest: Reports cough Gastrointestinal Gastrointestinal: Denies abdominal pain, diarrhea, nausea or vomiting Genitourinary Genitourinary ED: Denies dysuria or hematuria Musculoskeletal Musculoskeletal: Reports arthralgias Integumentary Denies abscess Neurologic Neurologic: Denies headache(s) Psychiatric Psychiatric: Denies anxiety Endocrine Endocrinology: Denies cold intolerance Hematologic/Lymphatic Hematologic/Lymphatic: Denies easy bleeding Allergic/Immunologic Allergic/Immunologic ED: Denies mouth swelling or tongue swelling EXAM Physical Exam Narrative Exam Narrative: 57-year-old female no acute distress. Vital signs stable afebrile. H EENT exam left upper front tooth tender palpation. No swelling. No abscess. No facial or jaw swelling. No gingivitis. Multiple cavities and prior dental work. Neck nontender no lymphadenopathy. Lungs scattered expiratory wheezes. Heart regular rhythm no murmur rate about 90. Abdomen soft nontender. Moving all 4 extremities. Calves are nontender without edema. Neurologically she is awake and alert. Her wrist joints are consistent with chronic changes from arthritis. Neurologically she is awake and alert with no focal motor deficits. Const Vital Signs: 05/11/22 22:03 Temperature 97.6 F L Temperature Source Temporal Pulse Rate 91 Respiratory Rate 16 Blood Pressure 137/92 H Blood Pressure Mean 107 Pulse Ox 100 Oxygen Delivery Method Room Air Positive well nourished and well developed; Negative for obese, cachectic, contractures or unkempt General Appearance ED: well developed and NAD; Negative for unkempt, cachectic, contractures or pallor Nutritional Appearance: Negative for cachectic or obese HEENT Denies other Negative for trauma, tenderness or other Face and Sinus: sinuses nontender Mouth ED: Yes oral and palatal mucosa normal, Yes lips normal, Yes tongue normal, Yes salivary gland normal, No mouth trauma, No oral and palatal mucosa abnormal and No salivary gland abnormal Mouth: oral and palatal mucosa normal, lips normal, tongue normal, salivary gland normal, No mouth trauma, No oral and palatal mucosa abnormal and No salivary gland abnormal Teeth and Gingiva: abnormal tooth and associated gingiva, caries and poor dentition; Negative for gingiva abnormal Throat: posterior oropharynx normal Eyes PERRL and EOMs intact bilaterally General Eye ED: Negative for pale conjunctiva or scleral icterus Neck no lymphadenopathy, supple and no JVD General: normal visual inspection; Negative for anterior neck swelling, tenderness or submandibular swelling Lymph Lymphatic: no lymphadenopathy noted; Negative for lymphadenopathy Chest Wall inspection of chest normal and palpation of chest normal Resp normal respiratory effort, no retractions and No clear to auscultation bilaterally Resp Narrative: Scattered expiratory wheezing. Cardio regular rate, regular rhythm, S1 normal heart sound, S2 normal heart sound and no murmurs Palpation: Negative for palpable S3 or palpable S4 Rate: Negative for bradycardia or tachycardic GI normal to inspection, nondistended, normoactive bowel sounds, non-tender, non-distended and no masses Back/Spine no CVA tenderness General Back: Negative for CVA tenderness Cervical Spine: Negative for other Thoracic Spine / Upper Back: Negative for thoracic spinal tenderness Extremity normal to inspection; Negative for no joint enlargement Extremity Narrative: Chronic arthritic changes of both wrist joints. Neuro oriented x3, CN's II-XII intact bilaterally, moves all extremities and no focal motor deficits Sensorium / Orientation: alert, oriented to person, oriented to place and oriented to time; Negative for orientation impaired Motor Exam: strength 5/5 throughout Psych mental status grossly normal Appearance: Negative for unkempt Attitude: No agitated Mood & Affect: Negative for depressed, anxious or tearful Skin no rashes or lesions noted and no wounds General Skin Exam: Negative for pallor MDM MDM MDM Narrative Medical decision making narrative: 57-year-old female wants pain medications for chronic dental and joint pain from rheumatoid. I explained the patient I would be happy to give her symptoms at night for pain but we typically do not write narcotic prescriptions for chronic pain. She is seeing a auto painter in the next 2 weeks. Patient will be given Oxy IR 10 mg in the emergency department discharged home with outpatient follow-up with her dentist and her rheumatoid arthritis specialist at the [facility] and her auto painter. Discharge Plan Triage Chief Complaint: Dental ED Provider: Nick Calvo Dx/Rx/DC Orders Clinical Impression: Chronic dental pain, Joint pain, Hx of rheumatoid arthritis Instructions: ED Arthralgia, ED Chronic Pain, ED Dental Pain Prescriptions: No Action omeprazole 40 mg capsule,delayed release(DR/EC) 40 mg PO DAILY Qty: 90 3RF trazodone 50 mg tablet 50 mg PO QHS Qty: 90 3RF ondansetron 4 MG tablet 4 mg PO Q8H PRN PRN (Reason: Nausea) Qty: 10 0RF lorazepam 0.5 mg tablet 0.5 mg PO DAILY PRN PRN (Reason: Anxiety) loratadine [Claritin] 10 mg tablet 10 mg PO QHS rosuvastatin 5 mg tablet 5 mg PO QHS (DME) nebulizer and compressor [[place] Choice Nebulizer] Device See Rx Instructions .ROUTE .MEDSUPPLY Qty: 1 0RF Rx Instructions: As directed permethrin 5 % cream 1 applic topical Q14D Qty: 60 0RF Rx Instructions: apply second treatment 14 days after first treatment if live lice remain lidocaine [Lidoderm] 5 % adhesive patch,medicated 1 patch topical DAILY Qty: 15 0RF Rx Instructions: leave on most painful area for up to 12 hrs tramadol 50 mg tablet 50 mg PO Q8H PRN (Reason: pain) Qty: 10 0RF aspirin 81 mg tablet,delayed release (DR/EC) 81 mg PO QHS Qty: 30 11RF nitroglycerin 0.4 mg tablet, sublingual 0.4 mg SUBLINGUAL Q5-15M PRN (Reason: chest pain) Qty: 25 3RF Rx Instructions: until response; do not exceed 3 doses per episode fluticasone propion-salmeterol [Advair Diskus] 250-50 mcg/dose blister with device 1 inh inhalation BID Qty: 60 1RF fluticasone propionate [Flonase Allergy Relief] 50 mcg/actuation spray,suspension 2 spray intranasal QDAY Qty: 1 3RF Rx Instructions: administer into each nostril ProAir HFA 90 mcg/actuation HFA aerosol inhaler 2 puff INHALATION Q6H PRN (Reason: Sob &/Or Wheezing) Qty: 8.5 6RF metoprolol succinate 25 mg tablet extended release 24 hr 25 mg PO QHS Qty: 90 3RF losartan 50 mg tablet 50 mg PO QHS Qty: 90 3RF amlodipine [Norvasc] 5 mg tablet 5 mg PO QHS Qty: 90 3RF Primary Care Provider: Hasmukh Patton Referrals: Hasmukh Patton DO [Primary Care Provider] - Activity Restrictions/Additional Instructions: Follow-up with your rheumatoid arthritis doctors, your auto painter and your dentist. Motrin and Tylenol for pain. Disposition Disposition: Home, Self Care Discharge Date/Time: 05/11/22 23:26
[2022-05-11] MEDS: oxyCODONE 5 MG Tablet 10 MG PO (23:23)
== END 2022-05-11 23:26 | disposition home or self-care (01) ==
PROVIDERS: Emergency Provider Emergency Medicine; PCP Family Medicine; Visit Provider Emergency Medicine
DX: M25.50 Pain in unspecified joint (principal); M06.9 Rheumatoid arthritis, unspecified; J44.9 Chronic obstructive pulmonary disease, unspecified; K08.89 Other specified disorders of teeth and supporting structures; I10 Essential (primary) hypertension; G89.29 Other chronic pain; F17.210 Nicotine dependence, cigarettes, uncomplicated; E78.5 Hyperlipidemia, unspecified; I25.10 Atherosclerotic heart disease of native coronary artery without angina pectoris
CPT/HCPCS: 99283

== ENCOUNTER 2022-09-29 00:24 | Emergency (ER) | payer MEDICAID, SELFPAY ==
[2022-09-29 00:25] VITALS: BP 151/104; PULSE 102; RESP 18; TEMP 36.4; O2SAT 98; BMI 35.8
--- NOTE | 2022-09-29 02:00 | EDS_ITS ---
HPI History of Present Illness Chief Complaint: Dental Narrative Narrative: Patient is a 57-year-old female with past medical history of COPD and nicotine abuse she states that she had surgery multiple years ago where they cracked her tooth she states that she developed severe pain after this and even went through a root canal which did not help. She states that since that time she has other teeth begin to breakdown and she cannot get into see a dentist. She reports that over the past week she feels like her left upper tooth has increased in pain and is traveling up into her mid cheek. She denies any recent trauma fevers or chills difficulty breathing or swallowing. She reports that she cannot get into see a dentist for another week and has been having persistent pain and secondary to this comes in for evaluation [facility] Medical History AC (acromioclavicular) joint bone spurs Acute exacerbation of chronic bronchitis Acute respiratory failure Anxiety Asthma Atherosclerotic heart disease of [place] coronary artery without angina pectoris Chronic bronchitis COPD (chronic obstructive pulmonary disease) Essential hypertension Fatty liver GERD (gastroesophageal reflux disease) Gout History of myocardial infarction History of retained foreign body fully removed Hyperlipemia Lupus Osteoarthritis Pulmonary embolism Seasonal allergies Solitary lung nodule Swelling of lower leg Home Medications aspirin 81 mg tablet,delayed release 81 mg PO QHS #30 tabs 07/14/20 [Rx Last Taken Unknown] nitroglycerin 0.4 mg sublingual tablet 0.4 mg sublingual Q5-15M PRN chest pain #25 tabs 07/14/20 [Rx Last Taken Unknown] ondansetron 4 mg disintegrating tablet 4 mg PO Q8H PRN PRN Nausea #10 tabs 07/06 10/23 [Rx Last Taken Unknown] omeprazole 40 mg capsule,delayed release 40 mg PO DAILY #90 caps 11/18/20 [Rx Last Taken Unknown] trazodone 50 mg tablet 50 mg PO QHS insomnia #90 tabs 11/18/20 [Rx Last Taken Unknown] fluticasone 250 mcg-salmeterol 50 mcg/dose blistr powdr for inhalation (Advair Diskus) 1 inh inhalation BID COPD #60 ea 05/07/21 [Rx Last Taken Unknown] fluticasone propionate 50 mcg/actuation nasal spray,suspension (Flonase Allergy Relief) 2 spray intranasal QDAY #1 device 05/07/21 [Rx Last Taken Unknown] ProAir HFA 90 mcg/actuation aerosol inhaler (albuterol sulfate) 2 puff inhalat ion Q6H PRN Sob &/Or Wheezing #8.5 grams 06/11/21 [Rx Last Taken Unknown] amlodipine 5 mg tablet (Norvasc) 5 mg PO QHS #90 tabs 07/13/21 [Rx Last Taken Unknown] losartan 50 mg tablet 50 mg PO QHS #90 tabs 07/13/21 [Rx Last Taken Unknown] metoprolol succinate 25 mg tablet,extended release 24 hr 25 mg PO QHS #90 tabs 07/13/21 [Rx Last Taken Unknown] loratadine 10 mg tablet (Claritin) 10 mg PO QHS allergies 11/15/21 [History Last Taken Unknown] lorazepam 0.5 mg tablet 0.5 mg PO DAILY PRN PRN Anxiety 11/15/21 [History Last Taken Unknown] nebulizer and compressor ([place] Choice Nebulizer) #1 ea 11/15/21 [Rx Last Taken Unknown] rosuvastatin 5 mg tablet 5 mg PO QHS 11/15/21 [History Last Taken Unknown] lidocaine 5 % topical patch (Lidoderm) 1 patch topical DAILY #15 ea 02/16/22 [Rx Last Taken Unknown] permethrin 5 % topical cream 1 applic topical Q14D 2 doses #60 grams 02/16/22 [Rx Last Taken Unknown] tramadol 50 mg tablet 50 mg PO Q8H PRN pain #10 tabs 02/16/22 [Rx Last Taken Unknown] amoxicillin 875 mg-potassium clavulanate 125 mg tablet 1 tab PO BID 10 days #20 tabs 09/29/22 [Rx Last Taken Unknown] Allergy/AdvReac Type Severity Reaction Status Date / Time ketorolac [From Toradol] Allergy Itching Verified 09/29/22 00:29 acetaminophen [From Vicodin] AdvReac Itching Verified 09/29/22 00:29 hydrocodone [From Vicodin] AdvReac Itching Verified 09/29/22 00:29 Family History Mother Heart disease Aunt Heart disease Grandmother Heart disease Grandfather Heart disease Surgical History H/O section History of carpal tunnel surgery History of coronary artery bypass surgery (~05/24/15) History of tonsillectomy and adenoidectomy History of tubal ligation Hx of breast reduction, elective Polyps from throat removed S/P trigger finger release S/P triple vessel bypass Social History Smoking Status: Current every day smoker tobacco type: cigarettes alcohol intake: current substance use type: marijuana what type of physical activity do you participate in: walking frequency: 5-6 times per week ROS ROS ED Constitutional Constitutional ED: Denies chills or fever(s) ENT ENT ED: Reports other Details: Positive dental pain ; Denies sore throat Cardiovascular Cardiovascular: Denies chest pain Respiratory/Chest Respiratory/Chest: Denies cough or dyspnea Gastrointestinal Gastrointestinal: Denies abdominal pain, diarrhea, nausea or vomiting Genitourinary Genitourinary ED: Denies dysuria Musculoskeletal Musculoskeletal: Denies myalgias Integumentary Denies rash Neurologic Neurologic: Denies headache(s) Hematologic/Lymphatic Hematologic/Lymphatic: Denies easy bleeding or easy bruising EXAM Physical Exam Const Vital Signs: 09/29/22 00:25 Temperature 97.6 F L Temperature Source Temporal Pulse Rate 102 H Respiratory Rate 18 Blood Pressure 151/104 H Blood Pressure Mean 119 Pulse Ox 98 Oxygen Delivery Method Room Air Positive well nourished and well developed General Appearance ED: well developed HEENT Reports moist mucous membranes HEENT Narrative: Patient has multiple dental caries present without obvious dental abscess No oral lesions no airway edema or compromise No tongue or lip swelling No signs of acute necrotizing ulcerative gingivitis Eyes PERRL and EOMs intact bilaterally Neck supple Neck Narrative: No brawny edema in the submental space to suggest Pavan's angina Resp normal respiratory effort and clear to auscultation bilaterally Cardio regular rate and regular rhythm Extremity normal to inspection Neuro oriented x3 and CN's II-XII intact bilaterally Sensorium / Orientation: alert Psych Psych Narrative: Patient has a tearful affect Skin no rashes or lesions noted MDM MDM MDM Narrative Medical decision making narrative: Patient presented to the ER afebrile she does not have signs of a dental abscess airway compromise Pavan's angina or ANUG. Moreover she reports that these symptoms of dental caries and pain have been recurrent/chronic in nature. As she states the pain is now in a different location than her normal pain there is concern for developing infection but as the physical exam does not suggest any signs of systemic infection I do not believe there is need for work-up. The patient has requested pain medication multiple time. Chart review reveals that she received 14 Percocet on September 23. I informed the patient that we do not treat chronic pain in the ER and I offered her dental block. Patient refused and this time we will compromise where she receives 1 10 mg oxycodone pill and I will start her on antibiotics as there is concern for developing infection as she reports the pain is in a different location than his baseline. However with no signs of systemic infection or airway compromise there is no need for further work-up and he is otherwise safe for discharge History & Record Review Discussion w/independent historian: Patient Discharge Plan Triage Chief Complaint: Dental ED Provider: Chuck Cadet Dx/Rx/DC Orders Clinical Impression: Pain, dental, Dental caries Instructions: ED Dental Pain Prescriptions: New amoxicillin-pot clavulanate 875-125 mg tablet 1 tab PO BID 10 Days Qty: 20 0RF No Action omeprazole 40 mg capsule,delayed release(DR/EC) 40 mg PO DAILY Qty: 90 3RF trazodone 50 mg tablet 50 mg PO QHS Qty: 90 3RF ondansetron 4 MG tablet 4 mg PO Q8H PRN PRN (Reason: Nausea) Qty: 10 0RF lorazepam 0.5 mg tablet 0.5 mg PO DAILY PRN PRN (Reason: Anxiety) loratadine [Claritin] 10 mg tablet 10 mg PO QHS rosuvastatin 5 mg tablet 5 mg PO QHS (DME) nebulizer and compressor [[place] Choice Nebulizer] Device See Rx Instructions .ROUTE .MEDSUPPLY Qty: 1 0RF Rx Instructions: As directed permethrin 5 % cream 1 applic topical Q14D Qty: 60 0RF Rx Instructions: apply second treatment 14 days after first treatment if live lice remain lidocaine [Lidoderm] 5 % adhesive patch,medicated 1 patch topical DAILY Qty: 15 0RF Rx Instructions: leave on most painful area for up to 12 hrs tramadol 50 mg tablet 50 mg PO Q8H PRN (Reason: pain) Qty: 10 0RF aspirin 81 mg tablet,delayed release (DR/EC) 81 mg PO QHS Qty: 30 11RF nitroglycerin 0.4 mg tablet, sublingual 0.4 mg SUBLINGUAL Q5-15M PRN (Reason: chest pain) Qty: 25 3RF Rx Instructions: until response; do not exceed 3 doses per episode fluticasone propion-salmeterol [Advair Diskus] 250-50 mcg/dose blister with device 1 inh inhalation BID Qty: 60 1RF fluticasone propionate [Flonase Allergy Relief] 50 mcg/actuation spray,suspension 2 spray intranasal QDAY Qty: 1 3RF Rx Instructions: administer into each nostril ProAir HFA 90 mcg/actuation HFA aerosol inhaler 2 puff INHALATION Q6H PRN (Reason: Sob &/Or Wheezing) Qty: 8.5 6RF metoprolol succinate 25 mg tablet extended release 24 hr 25 mg PO QHS Qty: 90 3RF losartan 50 mg tablet 50 mg PO QHS Qty: 90 3RF amlodipine [Norvasc] 5 mg tablet 5 mg PO QHS Qty: 90 3RF Primary Care Provider: Hasmukh Patton Referrals: Hasmukh Patton DO [Primary Care Provider] - Activity Restrictions/Additional Instructions: Please follow-up with your dentist for definitive treatment but start the antibiotic with concern for developing infection and return to the ER should you have further concerns Disposition Disposition: Home, Self Care Discharge Date/Time: 09/29/22 02:22
[2022-09-29] MEDS: Amox/Clavulanate 875 MG Tablet PO (02:19)
[2022-09-29] MEDS: oxyCODONE 5 MG Tablet 10 MG PO (02:19)
== END 2022-09-29 02:22 | disposition home or self-care (01) ==
PROVIDERS: Emergency Provider Emergency Medicine; PCP Family Medicine; Visit Provider Emergency Medicine
DX: K02.9 Dental caries, unspecified (principal); J44.9 Chronic obstructive pulmonary disease, unspecified; G89.29 Other chronic pain; F17.210 Nicotine dependence, cigarettes, uncomplicated; E78.5 Hyperlipidemia, unspecified; I25.10 Atherosclerotic heart disease of native coronary artery without angina pectoris; I25.2 Old myocardial infarction; I10 Essential (primary) hypertension; Z95.1 Presence of aortocoronary bypass graft; Z79.82 Long term (current) use of aspirin; Z79.899 Other long term (current) drug therapy

== ENCOUNTER 2022-09-29 07:12 | Emergency (ER) | payer MEDICAID, SELFPAY ==
[2022-09-29 07:13] VITALS: BP 170/111; PULSE 106; RESP 18; TEMP 36.3; O2SAT 99; BMI 27.9
--- NOTE | 2022-09-29 07:18 | RAD_ITS ---
HISTORY: chest pain. TECHNIQUE: XR Chest 1 View. COMPARISON: 11/15/2021. FINDINGS: CARDIOMEDIASTINAL BORDERS: Cardiac silhouette within normal limits in size. Mediastinal contour unchanged with midline sternotomy and mediastinal clips. LUNGS: Radiographically clear. PLEURA: No pleural effusion or pneumothorax seen. OSSEOUS STRUCTURES: Unremarkable. RAD/Chest 1 View (Portable) IMPRESSION: No acute cardiopulmonary process identified. Electronically Signed: Marci Schafer MD at 8:09 EDT ,
--- NOTE | 2022-09-29 07:18 | EKG12_ITS ---
Test Reason : CP Blood Pressure : / mmHG Vent. Rate : 102 BPM Atrial Rate : 102 BPM P-R Int : 166 ms QRS Dur : 128 ms QT Int : 372 ms P-R-T Axes : 051 -44 039 degrees QTc Int : 484 ms Sinus tachycardia Left axis deviation Right bundle branch block Inferior infarct , age undetermined Abnormal ECG Confirmed by MICEHLLE ENCISO, ALETA ([id number]), publishing editor GET FERRER ([id number]) on 10/03/2022 11:38:08 AM Referred By: GEOVANNI Confirmed By:PRAVEEN MARTINEZ MD
[2022-09-29 07:31] LABS: Absolute Lymphocyte Count 3.93 X10^3/uL (0.83-4.51); Absolute Neutrophil Count 6.4 X10^3/uL (2.0-7.7); Basophil# 0.07 X10^3/uL; Basophil% 0.6 % (0-1); Eosinophil# 0.28 X10^3/uL; Eosinophils% 2.4 % (0-5); Hematocrit 37.7 % (37-47); Hemoglobin 12.6 g/dL (12.0-15.0); Lymphocyte # 3.93 X10^3/ul (0.83-4.51); Lymphocyte % 33.7 % (19-41); Mean Corp Hgb Conc 33.4 g/dL (32-36); Mean Corpuscular Hgb 32.2 pg (27.0-32.0); Mean Corpuscular Volume 96.4 fL (81-99); Mean Platelet Vol. 8.8 fl (6.2-12.0); Monocyte# 0.91 X10^3/uL; Monocyte% 7.8 % (0-10); NRBC Flagged by Analyzer 0 % (0-5); Neutrophil # 6.38 X10^3/uL (2.7-7.7); Neutrophil % 54.8 % (47-70); Platelet Count 373 K/mm3 (150-450); RBC Distribution Width CV 12.5 % (11.6-14.6); RBC Distribution Width SD 43.6 fl (35.1-43.9); Red Blood Count 3.91 M/mm3 (4.2-5.4); White Blood Count 11.7 K/mm3 (4.4-11.0)
[2022-09-29] MEDS: Aspirin 81 MG TAB.CHEW 324 MG PO (07:32)
--- NOTE | 2022-09-29 07:35 | ED.VIS.CHEST ---
HPI History of Present Illness Chief Complaint: Chest Pain Detail of Chief Complaint: Bilateral anterior chest pressure with mild shortness of breath Informant: patient Onset/Context/Timing Onset: Hours Activity at onset: sudden and activity on onset Timing: Continuous Quality: Positive for Pressure and Tightness Location: Right Parasternal and Left Parasternal Current Severity: Mild Maximum Severity: Moderate Worsened By: Nothing Relieved By: Nothing Associated Symptoms: Positive for Dyspnea; Negative for Nausea, Vomiting, Diaphoresis, Cough, Fever, Lightheadedness, Acid Reflux or Palpitations Narrative Narrative: Patient is a 57-year-old woman who smokes 2 packs/day and history of essential hypertension, hypercholesterolemia, coronary artery disease status post three-vessel bypass surgery 2016 and COPD. Patient was seen last evening for dental pain. She states after she left the emergency room she went home to pack since she is moving. When she was moving things about she developed chest discomfort. She states the pain is in her back. She states that when she had her OR she did not have chest pain but she had back pain. Patient informing that Dr. Mcgregor is her doctor. She is not a good informant with regards to past history. Per review of old records she does have history of reflux. She denies sour taste in the back of her throat. She denies black or maroon-colored stool. She denied nausea or vomiting. There is no history of trauma. Movement does not make her pain worse. She denies leg pain, swelling discoloration. She does have a history of PE after her heart surgery. Prior Similar Symptoms: No Recent Illness/Hospitalization: Yes (Seen yesterday for dental pain) CVD Risk Factors: Positive for Hypertension, Hypercholesterolemia and Smoking; Negative for Diabetes PE Risk Factors: Positive for Prior DVT or PE; Negative for Recent Travel/Surgery, Recent Immobilization, Cancer or OCP + Smoking + >/=35 TAD Risk Factors: Negative for Marfan's Syndrome, Hypertension or Family History [facility] Medical History AC (acromioclavicular) joint bone spurs Acute exacerbation of chronic bronchitis Acute respiratory failure Anxiety Asthma Atherosclerotic heart disease of [place] coronary artery without angina pectoris Chronic bronchitis COPD (chronic obstructive pulmonary disease) Essential hypertension Fatty liver GERD (gastroesophageal reflux disease) Gout History of myocardial infarction History of retained foreign body fully removed Hyperlipemia Lupus Osteoarthritis Pulmonary embolism Seasonal allergies Solitary lung nodule Swelling of lower leg Home Medications aspirin 81 mg tablet,delayed release 81 mg PO QHS #30 tabs 07/14/20 [Rx Last Taken Unknown] nitroglycerin 0.4 mg sublingual tablet 0.4 mg sublingual Q5-15M PRN chest pain #25 tabs 07/14/20 [Rx Last Taken Unknown] ondansetron 4 mg disintegrating tablet 4 mg PO Q8H PRN PRN Nausea #10 tabs 07/20/20 [Rx Last Taken Unknown] omeprazole 40 mg capsule,delayed release 40 mg PO DAILY #90 caps 11/18/20 [Rx Last Taken Unknown] trazodone 50 mg tablet 50 mg PO QHS insomnia #90 tabs 11/18/20 [Rx Last Taken Unknown] fluticasone 250 mcg-salmeterol 50 mcg/dose blistr powdr for inhalation (Advair Diskus) 1 inh inhalation BID COPD #60 ea 05/07/21 [Rx Last Taken Unknown] fluticasone propionate 50 mcg/actuation nasal spray,suspension (Flonase Allergy Relief) 2 spray intranasal QDAY #1 device 05/07/21 [Rx Last Taken Unknown] ProAir HFA 90 mcg/actuation aerosol inhaler (albuterol sulfate) 2 puff inhalation Q6H PRN Sob &/Or Wheezing #8.5 grams 06/11/21 [Rx Last Taken Unknown] amlodipine 5 mg tablet (Norvasc) 5 mg PO QHS #90 tabs 07/13/21 [Rx Last Taken Unknown] losartan 50 mg tablet 50 mg PO QHS #90 tabs 07/13/21 [Rx Last Taken Unknown] metoprolol succinate 25 mg tablet,extended release 24 hr 25 mg PO QHS #90 tabs 07/13/21 [Rx Last Taken Unknown] loratadine 10 mg tablet (Claritin) 10 mg PO QHS allergies 11/15/21 [History Last Taken Unknown] lorazepam 0.5 mg tablet 0.5 mg PO DAILY PRN PRN Anxiety 11/15/21 [History Last Taken Unknown] nebulizer and compressor ([employer] Choice Nebulizer) #1 ea 11/15/21 [Rx Last Taken Unknown] rosuvastatin 5 mg tablet 5 mg PO QHS 11/15/21 [History Last Taken Unknown] lidocaine 5 % topical patch (Lidoderm) 1 patch topical DAILY #15 ea 02/16/22 [Rx Last Taken Unknown] permethrin 5 % topical cream 1 applic topical Q14D 2 doses #60 grams 02/16/22 [Rx Last Taken Unknown] tramadol 50 mg tablet 50 mg PO Q8H PRN pain #10 tabs 02/16/22 [Rx Last Taken Unknown] amoxicillin 875 mg-potassium clavulanate 125 mg tablet 1 tab PO BID 10 days #20 tabs 09/29/22 [Rx Last Taken Unknown] Allergy/AdvReac Type Severity Reaction Status Date / Time ketorolac [From Toradol] Allergy Itching Verified 09/29/22 07:20 acetaminophen [From Vicodin] AdvReac Itching Verified 09/29/22 07:20 hydrocodone [From Vicodin] AdvReac Itching Verified 09/29/22 07:20 Family History Mother Heart disease Aunt Heart disease Grandmother Heart disease Grandfather Heart disease Surgical History H/O section History of carpal tunnel surgery History of coronary artery bypass surgery (~05/24/15) History of tonsillectomy and adenoidectomy History of tubal ligation Hx of breast reduction, elective Polyps from throat removed S/P trigger finger release S/P triple vessel bypass Social History household members: none Smoking Status: Current every day smoker tobacco type: cigarettes alcohol intake: current substance use type: marijuana what type of physical activity do you participate in: walking frequency: 5-6 times per week ROS ROS ED Constitutional Constitutional ED: Denies chills, fever(s), subjective, sweats or weight loss Eyes Eyes: Reports none ENT ENT ED: Reports other Details: Positive frontal dental pain ; Denies ear pain, rhinorrhea or sore throat Cardiovascular Cardiovascular: Reports as per HPI; Denies orthopnea or paroxysmal nocturnal dyspnea Respiratory/Chest Respiratory/Chest: Reports dyspnea; Denies cough, dyspnea on exertion, orthopnea or paroxysmal nocturnal dyspnea Gastrointestinal Gastrointestinal: Denies abdominal pain, constipation, diarrhea, melena, nausea or vomiting Genitourinary Genitourinary ED: Denies dysuria, hematuria or urinary frequency Musculoskeletal Musculoskeletal: Reports back pain; Denies arthralgias, myalgias or neck pain Integumentary Denies rash Neurologic Neurologic: Denies headache(s) or weakness Psychiatric Psychiatric: Reports anxiety Endocrine Endocrinology: Denies cold intolerance or heat intolerance Hematologic/Lymphatic Hematologic/Lymphatic: Denies easy bleeding or easy bruising EXAM Physical Exam Const Vital Signs: 09/29/22 07:13 09/29/22 07:18 09/29/22 08:10 Temperature 97.4 F L Temperature Source Temporal Pulse Rate 106 H Respiratory Rate 18 Respiratory Pattern Normal Blood Pressure 170/111 H Blood Pressure Mean 130 Pulse Ox 99 97 Oxygen Delivery Method Room Air Nasal Cannula Oxygen Flow Rate (L/min) 2 09/29/22 08:12 09/29/22 09:00 Temperature Temperature Source Pulse Rate 84 73 Respiratory Rate 19 H 19 H Respiratory Pattern Blood Pressure 144/101 H 110/90 H Blood Pressure Mean 115 96 Pulse Ox 97 95 Oxygen Delivery Method Nasal Cannula Nasal Cannula Oxygen Flow Rate (L/min) 2 Positive well nourished and well developed General Appearance ED: well developed and NAD; Negative for pallor HEENT Reports TM's clear and moist mucous membranes HEENT Narrative: Nares patent. Posterior pharynx out erythema or exudate. 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 There is no evidence infection Resp normal respiratory effort and clear to auscultation bilaterally Cardio regular rhythm, S1 normal heart sound, S2 normal heart sound and no murmurs Rate: tachycardic Peripheral Pulses: pulses 2+ throughout GI normal to inspection, nondistended, normoactive bowel sounds, soft to palpation, non-tender, non-distended and no masses; Negative for hepatosplenomegaly Back/Spine no CVA tenderness Extremity normal to inspection Extremity Narrative: There is no asymmetry, swelling, discoloration, leg vein distention, palpable cords or tenderness along the distribution of the deep venous system. Neuro oriented x3, CN's II-XII intact bilaterally and no sensory deficits noted Sensorium / Orientation: awake and alert Psych Mood & Affect: anxious Skin no rashes or lesions noted Skin Narrative: Lesions noted and documented under the cardiovascular/chest portion of the chart General Skin Exam: Negative for jaundice or pallor Heart Score History: Moderately Suspicious ECG: Nonspecific Repolarization Age: >45 - <65 years Risk Factors: >/= 3 Risk Factors or History of CAD Score: 5 MDM MDM MDM Narrative Medical decision making narrative: Patient presents with chest discomfort. This may represent cardiac versus noncardiac. Will obtain EKG and troponin to assess for acute cardiac ischemia and non-ST elevation OR. Chest x-ray to determine if there is any evidence of widening the mediastinum, hiatal hernia or pulmonary cause. CBC to assess H&H. Basic metabolic panel was obtained to assess renal function. Patient's blood pressure is elevated at 170/111. She states her blood pressure was 200 at home. This could be the cause of her pain due to increased afterload. She is also tachycardic. She does have history of PE however this was provoked. She has no recent risk factors. And history is not consistent with pulmonary embolus. Lab Data Attestation: I reviewed the patient's lab results. Lab results narrative: White count is slightly elevated with no shift. Basic metabolic panel is unremarkable other than a slight decrease in potassium 3.4. First troponin is normal. 2-hour troponin is 38 with a delta of 1. Labs: Laboratory Results - last 24 hr 09/29/22 09/29/22 09/29/22 07:21 07:21 09:43 WBC 11.7 H RBC 3.91 L Hgb 12.6 Hct 37.7 MCV 96.4 MCH 32.2 H MCHC 33.4 RDW Std Deviation 43.6 RDW Coeff of Louie 12.5 Plt Count 373 MPV 8.8 Immature Gran % (Auto) 0.700 Neut % (Auto) 54.8 Lymph % (Auto) 33.7 [place] % (Auto) 7.8 Eos % (Auto) 2.4 Baso % (Auto) 0.6 Absolute Neuts (auto) 6.4 Absolute Lymphs (auto) 3.93 Nucleated RBC % 0 Sodium 139 Potassium 3.4 L Chloride 106 Carbon Dioxide 30.0 Anion Gap 3 L BUN 5 L Creatinine 0.49 L Estim Creat Clear Calc 116.73 Est GFR (MDRD) Af Amer 169 Est GFR (MDRD) Non-Af 140 BUN/Creatinine Ratio 10.2 Glucose 106 Calcium 9.3 Troponin I High Sens 37 38 Radiography Chest X-Ray - ED: 1 View and Read by ED Physician (Single view portable chest x-ray reveals no acute pathology. Patient is slightly rotated. Sternotomy wires noted. Cardiac silhouette size normal. Lung parenchyma is unremarkable. Perihilar regions normal. Osseous structures are unremarkable. This was independently reviewed and interpreted by ) Diagnostic Testing: Clinical Impression(s) from Imaging Studies Chest X-Ray 09/29/22 07:18 IMPRESSION: No acute cardiopulmonary process identified. Electronically Signed: Marci Schafer MD at 8:09 EDT , EKG Initial EKG: Attestation: I personally reviewed and interpreted this EKG as follows: Interpretation: Sinus Tachycardia (Rate is 102. QRS morphology consistent with a right bundle branch block. [place] interval is under 6 6 ms. QRS duration 128 ms. QT duration 372 ms. [place] to left. The EKG is unchanged from November 15, 2021. This EKG was obtained with patient having pain.) Comments: I was informed that patient requested medicine for pain and nausea. She was ordered 2 mg of morphine and 4 mg of Zofran. Nurse then returned and patient voiced she was concerned she is going to have a stroke since her brother recently had a stroke. Review of prior records indicates patient has history of anxiety. Treatment and Re-Evaluation :: Patient was treated for her pain with morphine since she had no improvement with nitroglycerin. Awaiting 2-hour troponin. 2-hour troponin is normal with a delta of 1. Discharge Plan Triage Chief Complaint: Chest Pain ED Provider: Rafal Coyle Dx/Rx/DC Orders Clinical Impression: Anterior chest wall pain, Atherosclerotic heart disease of [place] coronary artery without angina pectoris, Essential hypertension, Hyperlipemia, History of myocardial infarction, Nicotine abuse, Anxiety, History of COPD Instructions: ED Chest Pain, Noncardiac Prescriptions: No Action omeprazole 40 mg capsule,delayed release(DR/EC) 40 mg PO DAILY Qty: 90 3RF trazodone 50 mg tablet 50 mg PO QHS Qty: 90 3RF ondansetron 4 MG tablet 4 mg PO Q8H PRN PRN (Reason: Nausea) Qty: 10 0RF lorazepam 0.5 mg tablet 0.5 mg PO DAILY PRN PRN (Reason: Anxiety) loratadine [Claritin] 10 mg tablet 10 mg PO QHS rosuvastatin 5 mg tablet 5 mg PO QHS (DME) nebulizer and compressor [[employer] Choice Nebulizer] Device See Rx Instructions .ROUTE .MEDSUPPLY Qty: 1 0RF Rx Instructions: As directed permethrin 5 % cream 1 applic topical Q14D Qty: 60 0RF Rx Instructions: apply second treatment 14 days after first treatment if live lice remain lidocaine [Lidoderm] 5 % adhesive patch,medicated 1 patch topical DAILY Qty: 15 0RF Rx Instructions: leave on most painful area for up to 12 hrs tramadol 50 mg tablet 50 mg PO Q8H PRN (Reason: pain) Qty: 10 0RF amoxicillin-pot clavulanate 875-125 mg tablet 1 tab PO BID 10 Days Qty: 20 0RF aspirin 81 mg tablet,delayed release (DR/EC) 81 mg PO QHS Qty: 30 11RF nitroglycerin 0.4 mg tablet, sublingual 0.4 mg SUBLINGUAL Q5-15M PRN (Reason: chest pain) Qty: 25 3RF Rx Instructions: until response; do not exceed 3 doses per episode fluticasone propion-salmeterol [Advair Diskus] 250-50 mcg/dose blister with device 1 inh inhalation BID Qty: 60 1RF fluticasone propionate [Flonase Allergy Relief] 50 mcg/actuation spray,suspension 2 spray intranasal QDAY Qty: 1 3RF Rx Instructions: administer into each nostril ProAir HFA 90 mcg/actuation HFA aerosol inhaler 2 puff INHALATION Q6H PRN (Reason: Sob &/Or Wheezing) Qty: 8.5 6RF metoprolol succinate 25 mg tablet extended release 24 hr 25 mg PO QHS Qty: 90 3RF losartan 50 mg tablet 50 mg PO QHS Qty: 90 3RF amlodipine [Norvasc] 5 mg tablet 5 mg PO QHS Qty: 90 3RF Primary Care Provider: Hasmukh Patton Referrals: Hasmukh Patton DO [Primary Care Provider] - 3-5 Days Disposition Disposition: Home, Self Care
[2022-09-29 07:46] LABS: Anion Gap 3 (5-15); BUN 5 mg/dL (7-18); BUN/Creat Ratio 10.2 RATIO (10-20); Calcium,Total 9.3 mg/dL (8.5-10.1); Chloride 106 mmol/L (98-107); Creatinine, Serum 0.49 mg/dL (0.55-1.02); EST Glomerular Filtration Rate 140 mL/min (>60); Est Glom Filt Rate - Afr Amer 169 mL/min (>60); Estimated Creatinine Clearance 116.73 ml/min; Glucose 106 mg/dL (74-106); Potassium 3.4 mmol/L (3.5-5.1); Sodium Level 139 mmol/L (136-145); Troponin-I HS (w/2H Reflex) 37 pg/mL (3.0-54.0)
[2022-09-29 08:10] VITALS: O2SAT 97
[2022-09-29 08:12] VITALS: BP 144/101; PULSE 84; RESP 19; O2SAT 97
[2022-09-29] MEDS: Ondansetron 4 MG/2 ML Vial IV (08:41)
[2022-09-29] MEDS: Morphine 2 MG/ML Syringe IV (08:41)
[2022-09-29 09:00] VITALS: BP 110/90; PULSE 73; RESP 19; O2SAT 95
[2022-09-29 09:25] LABS: Reflex Troponin-HS? (from REC) Y
[2022-09-29 10:16] LABS: Troponin-I HS 38 pg/mL (3.0-54.0)
[2022-09-29 10:54] VITALS: BP 110/90; PULSE 88; RESP 15; O2SAT 94
== END 2022-09-29 10:56 | disposition home or self-care (01) ==
PROVIDERS: Emergency Provider Emergency Medicine; PCP Family Medicine; Visit Provider Emergency Medicine
DX: R07.89 Other chest pain (principal); J44.9 Chronic obstructive pulmonary disease, unspecified; F41.9 Anxiety disorder, unspecified; K02.9 Dental caries, unspecified; G89.29 Other chronic pain; I25.10 Atherosclerotic heart disease of native coronary artery without angina pectoris; I25.2 Old myocardial infarction; I10 Essential (primary) hypertension; E78.00 Pure hypercholesterolemia, unspecified; F17.210 Nicotine dependence, cigarettes, uncomplicated; Z95.1 Presence of aortocoronary bypass graft; Z79.82 Long term (current) use of aspirin; Z79.899 Other long term (current) drug therapy; Z86.711 Personal history of pulmonary embolism
CPT/HCPCS: 71045; 80048; 84484; 85025; 93005; 96374; 96375; 99283; 99285; A4216; J2405

== ENCOUNTER → 2023-09-20 | Outpatient (CLI) | payer MEDICAID, SELFPAY ==
[2023-09-20 12:09] LABS: Amphetamine Urine VISTA NEGATIVE (<1000 ng/mL); Barbiturate Urine VISTA NEGATIVE (< 200 ng/mL); Benzodiazepine Urine VISTA NEGATIVE (< 200 ng/mL); Cocaine Urine VISTA NEGATIVE (< 300 ng/mL); Ecstacy Urine VISTA NEGATIVE (< 500 ng/mL); Methadone Urine VISTA NEGATIVE (< 300 ng/mL); PCP Urine VISTA NEGATIVE (< 25 ng/mL); THC Urine VISTA NEGATIVE (< 50 ng/mL); Vista UDS pH Range 7
== END | disposition home or self-care (01) ==
PROVIDERS: Referring Provider Anesthesiology Pain Medicine; Visit Provider Anesthesiology Pain Medicine
DX: F11.20 Opioid dependence, uncomplicated (principal)
CPT/HCPCS: 80307